=== PATIENT | female | born 1970 | race Caucasian/White ===

== ENCOUNTER 2017-03-24 10:41 | Inpatient (IN) | payer OTHER ==
[~2017-03-24 10:41] MED LIST: ALPRAZolam 0.25 MG TAB PO PRN; ALPRAZolam 0.5 MG TAB PO PRN; ASPIRIN 325 MG TAB PO STA; ATORVASTATIN 80 MG TAB PO STA; NITROGLYCERIN SL TABS 0.4 MG TAB SUBLINGUAL PRN; SODIUM CHLORIDE 0.9% 1,000 ML in EMPTY BAG 1 BAG IV ONE
[2017-03-24] MEDS ORDERED: ASPIRIN 81 MG CHEW ONE (10:57)
[2017-03-24 11:17] LABS: Basophils % (A) 1 %; CH 30.4; CHCM 33.9; Eosinophils # (A) 0.2 k/uL (0-0.7); Eosinophils % (A) 3 %; HCT 42.5 % (34.0-46.0); HDW 2.55; HGB 14.5 gm/dL (11.4-16.0); Luc # (Auto) 0.12; Luc % (Auto) 2; Lymphocytes # (A) 2.5 k/uL (1.0-4.8); Lymphocytes % (A) 37 %; MCH 30.7 pg (25.0-35.0); MCHC 34.1 g/dL (31.0-37.0); MCV 90.1 fL (80.0-100.0); Mean Platelet Volume 7.4; Monocytes # (A) 0.4 k/uL (0-1.0); Monocytes % (A) 6 %; Neutrophils # (A) 3.5 k/uL (1.3-7.7); Neutrophils % (A) 52 %; RBC 4.72 m/uL (3.80-5.40); RDW 13.2 % (11.5-15.5); WBC 6.7 k/uL (3.8-10.6); WBC (Perox) 6.78
[2017-03-24 11:26] LABS: Anion Gap 8 mmol/L; Blood Urea Nitrogen 18 mg/dL (7-17); Calcium 9.9 mg/dL (8.4-10.2); Carbon Dioxide 22 mmol/L (22-30); Chloride 112 mmol/L (98-107); Glucose 87 mg/dL (74-99); Non-African American GFR(MDRD) >60 (>60 ml/min/1.73 sqM); Sodium 142 mmol/L (137-145)
[2017-03-24 11:30] LABS: Potassium 4.4 mmol/L (3.5-5.1)
[2017-03-24] MEDS ORDERED: LIDOCAINE 2% INJ 20 MG/ML (20 ML MDV) ONE (13:09)
[2017-03-24] MEDS ORDERED: NITROGLYCERIN OINT 1 INCH/GM PACKET TOPICAL ONE ×2 (13:15→13:18)
[2017-03-24] MEDS ORDERED: fentaNYL (PF) 50 MCG/ML 2 ML AMP IV ONE (13:20)
[2017-03-24] MEDS ORDERED: MIDAZOLAM 2 MG/2 ML VIAL IV ONE (13:20)
[2017-03-24] MEDS ORDERED: diphenhydrAMINE 50 MG/ML 1 ML VIAL IVP ONE (13:20)
[2017-03-24] MEDS ORDERED: fentaNYL (PF) 50 MCG/ML 2 ML AMP ONE (13:22)
[2017-03-24] MEDS ORDERED: MIDAZOLAM 2 MG/2 ML VIAL ONE (13:23)
[2017-03-24] MEDS ORDERED: hydrALAZINE HCL 20 MG/ML 1 ML VIAL ONE (13:23)
[2017-03-24] MEDS ORDERED: diphenhydrAMINE 50 MG/ML 1 ML VIAL ONE (13:23)
[2017-03-24] MEDS ORDERED: hydrALAZINE HCL 20 MG/ML 1 ML VIAL IV ONE (13:25)
[2017-03-24] MEDS ORDERED: LIDOCAINE 2% INJ 20 MG/ML SQ ONE (13:30)
[2017-03-24] MEDS ORDERED: LABETALOL 5 MG/ML VIAL MDV IV ONE (13:33)
[2017-03-24] MEDS ORDERED: NITROGLYCERIN 1000MCG/10ML SYRINGE INTRAARTER ONE (13:37)
[2017-03-24] MEDS ORDERED: NITROGLYCERIN SL TABS 0.4 MG TAB SUBLINGUAL ONE (13:39)
[2017-03-24] MEDS ORDERED: IOHEXOL 350 MG/ML 125ML BOTTLE INJ ONE (14:01)
[2017-03-24] MEDS ORDERED: ONDANSETRON 4 MG/2 ML VIAL ONE (14:05)
[2017-03-24] MEDS ORDERED: ONDANSETRON 4 MG/2 ML VIAL IVP ONE (14:10)
[2017-03-24] MEDS ORDERED: RX INFO: IV CONTRAST WAS GIVEN 1 EACH MISC MISCELLANE PRN (14:59)
[2017-03-24 17:29] LABS: INR 1.2 (<1.1); Partial Thromboplastin Time 24.6 sec (22.0-30.0); Prothrombin Time 12.1 sec (9.0-12.0)
[2017-03-24 17:42] LABS: ALT 54 U/L (9-52); AST 32 U/L (14-36); Alkaline Phosphatase 70 U/L (38-126); Anion Gap 7 mmol/L; Blood Urea Nitrogen 15 mg/dL (7-17); Calcium 9.3 mg/dL (8.4-10.2); Carbon Dioxide 24 mmol/L (22-30); Chloride 111 mmol/L (98-107); Cholesterol 106 mg/dL (<200); Glucose 101 mg/dL (74-99); HDL Cholesterol 59 mg/dL (40-60); Magnesium 1.6 mg/dL (1.6-2.3); Non-African American GFR(MDRD) >60 (>60 ml/min/1.73 sqM); Potassium 3.7 mmol/L (3.5-5.1); Sodium 142 mmol/L (137-145); Total Bilirubin 0.6 mg/dL (0.2-1.3); Total Protein 5.9 g/dL (6.3-8.2); Triglycerides 56 mg/dL (<150)
[2017-03-24 18:10] LABS: Hepatitis B Surface Ag Index 0.07
[2017-03-24 18:15] LABS: Hepatitis B Core IgM Index 0.07
[2017-03-24 18:27] LABS: Hepatitis C Virus IgG Index 0.03
[2017-03-24 18:28] LABS: Hepatitis C Virus IgG Ab Negative (Negative)
[2017-03-24] MEDS ORDERED: ACETAMINOPHEN TAB 325 MG TAB PO PRN (20:36)
[2017-03-24] MEDS ORDERED: ATORVASTATIN 40 MG TAB PO SCH (21:00)
[2017-03-24] MEDS: METOPROLOL TARTRATE 50 MG TAB PO SCH (21:24)
[2017-03-24] MEDS: SODIUM CHLORIDE 0.9% 1,000 ML IV SCH (21:24)
[2017-03-24 22:03] LABS: Hemoglobin A1C 5.8 % (4.2-6.1)
--- NOTE | 2017-03-24 22:12 | US ---
EXAMINATION TYPE: US carotid duplex BILAT DATE OF EXAM: 03/24/2017 9:48 PM COMPARISON: NONE CLINICAL HISTORY: Pre op cardiac surgery. Preop open cardiac surgery. EXAM MEASUREMENTS: RIGHT: Peak Systolic Velocity (PSV) cm/sec ----- Right CCA: 42.7 ----- Right ICA: 61.0 ----- Right ECA: 59.2 ICA/CCA ratio: 1.4 RIGHT: End Diastole cm/sec ----- Right CCA: 16.5 ----- Right ICA: 24.3 ----- Right ECA: 8.6 LEFT: Peak Systolic Velocity (PSV) cm/sec ----- Left CCA: 48.4 ----- Left ICA: 63.0 ----- Left ECA: 65.8 ICA/CCA ratio: 1.3 LEFT: End Diastole cm/sec ----- Left CCA: 14.5 ----- Left ICA: 27.1 ----- Left ECA: 8.7 VERTEBRALS (direction of flow): Right Vertebral: Antegrade Left Vertebral: Antegrade Mild amount of plaque visualized in bilateral bulbs, no elevated velocities Velocity measurements and ratios remain within normal limits in the visualized portion of bilateral i nternal carotid arteries. IMPRESSION: No hemodynamically significant stenosis is seen in either internal carotid artery.
[2017-03-24] MEDS: MUPIROCIN 2% OINT 22 GM TUBE NASAL SCH (23:29)
[2017-03-25 05:32] LABS: Amorphous Sediment,Urine Rare /hpf; Appearance,Urine Cloudy (Clear); Bilirubin,Urine Negative (Negative); Glucose,Urine (UA) Negative (Negative); Ketones,Urine 1+ (Negative); Leukocyte Esterase,Urine Negative (Negative); Nitrite,Urine Negative (Negative); PH, Urine 6.5 (5.0-8.0); Particle Count 33338; Protein,Urine Negative (Negative); RBC,Urine 1 /hpf (0-5); Squamous Epithelial Cell,Urine 2 /hpf (0-4); UA Billing (MACRO vs. MICRO) MICRO; Urobilinogen,Urine <2.0 mg/dL (<2.0); WBC,Urine 2 /hpf (0-5)
[2017-03-25 06:59] VITALS: TEMP 97.2
[2017-03-25] MEDS: SODIUM CHLORIDE 0.9% 1,000 ML IV SCH (08:00)
[2017-03-25] MEDS: METOPROLOL TARTRATE 50 MG TAB PO SCH (08:05)
--- NOTE | 2017-03-25 08:28 | CC ---
DATE OF SERVICE: Mrs. Reyes is a 47-year-old female who has been having recurrent angina, class III angina with minimal activities and relieved with nitroglycerin. This patient has a history of diffuse coronary artery disease with a prior history of a stent to the LAD, diagonal and circumflex coronary artery. In view of the medically refractory angina, patient was advised further evaluation with a cardiac catheterization for definitive diagnosis. PROCEDURE: The right groin was prepped and draped in the usual manner and the skin was infiltrated with 2% Xylocaine. The right femoral artery was entered using Seldinger technique. A #6 Indonesian sheath was placed in. Selective coronary angiography was then performed in multiple projections and left ventricular pressures were obtained. Patient tolerated the procedure well. HEMODYNAMICS: Left ventricular end-diastolic pressure was 8 to 10 mmHg prior to angiography. No gradient was noted across the aortic valve. SELECTIVE CORONARY ANGIOGRAPHY: Left main coronary artery is normal and patent. LAD is diffusely diseased with the proximally has a 40% stenosis. The mid LAD after the origin of the diagonal branch has a 60% to 70% stenosis and the distal LAD has another area of 70% to 80% stenosis. The diagonal branch is subtotally occluded. Circumflex coronary artery before its bifurcation into the obtuse marginal branch has a hazy-looking 70% to 80% stenosis. Right coronary artery is totally occluded. There is filling of the distal PDA branch from the left coronary system, which is a good caliber blood vessel. FINAL IMPRESSION: This study reveals a diffuse triple-vessel disease with multiple lesions in the left anterior descending artery. There is a tight lesion in the circumflex and the right coronary artery is totally occluded. The PDA branch is bypassable. RECOMMENDATIONS: Films were reviewed with Dr. Thalia Kiser. In view of the diffuse coronary artery disease, we will recommend to have further evaluation for coronary artery bypass surgery.
[2017-03-25] MEDS ORDERED: ASPIRIN 81 MG CHEW PO SCH (09:00)
[2017-03-25] MEDS ORDERED: amLODIPine 5 MG TAB PO SCH (09:00)
[2017-03-25] MEDS ORDERED: LISINOPRIL 10 MG TAB PO SCH (09:00)
[2017-03-25 09:13] VITALS: RESP 18
[2017-03-25] MEDS: MUPIROCIN 2% OINT 22 GM TUBE NASAL SCH (10:03)
--- NOTE | 2017-03-25 10:07 | XR ---
EXAMINATION TYPE: XR chest 2V DATE OF EXAM: 03/25/2017 9:38 AM COMPARISON: NONE TECHNIQUE: PA and lateral views submitted. HISTORY: Preop FINDINGS: The lungs are clear and there is no pneumothorax, pleural effusion, or focal pneumonia. Large nodul e overlying the right midlung likely related to nipple shadow. No overt failure. Scoliotic curvature of the spine noted. Previous surgery in the upper abdomen. IMPRESSION: 1. No acute process. Nodule overlying the right midlung likely related to nipple shadow.
[2017-03-25 11:15] VITALS: PULSE 63
[2017-03-25 11:57] VITALS: BP 159/94
--- NOTE | 2017-03-25 12:29 | P.GSCN ---
History of Present Illness Consult date: 03/25/17 Reason for Consult: Coronary artery disease Requesting physician: Marlen Tripp History of present illness: The patient is a 47-year-old female with a history of coronary artery disease status post multiple stents in the past who presented to her chief radiation therapist with recurrent chest pain at rest. Cardiac catheterization was performed which revealed multivessel coronary disease. I was asked to evaluate her for possible surgical bypass. At the time my examination the patient was resting comfortably in bed denying chest pain or shortness of breath. Review of Systems - Constitutional Reports fatigue - Cardiovascular Reports chest pain, Reports decreased exercise tolerance Past Medical History Past Medical History: Coronary Artery Disease (CAD), Hyperlipidemia, Hypertension History of Any Multi-Drug Resistant Organisms: None Reported Past Surgical History: Section, Cholecystectomy, Heart Catheterization With Stent, Hysterectomy, Tonsillectomy Additional Past Surgical History / Comment(s): 3 heart stents in 2011. Past Anesthesia/Blood Transfusion Reactions: No Reported Reaction Date of Last Stent Placement:: 2011 Past Psychological History: No Psychological Hx Reported Smoking Status: Current every day smoker Past Alcohol Use History: None Reported Additional Past Alcohol Use History / Comment(s): Smokes approx 1 PPD- statred at age [age] years old. Past Drug Use History: None Reported - Past Family History Mother Family Medical History: No Reported History Medications and Allergies Home Medications Medication Instructions Recorded Confirmed Type Aspirin 81 mg PO DAILY 03/21/17 03/24/17 History Atorvastatin [Lipitor] 40 mg PO HS 03/21/17 03/24/17 History Clopidogrel Bisulfate [Plavix] 75 mg PO DAILY 03/21/17 03/24/17 History Lisinopril [Zestril] 10 mg PO DAILY 03/21/17 03/24/17 History Metoprolol Tartrate [Lopressor] 50 mg PO BID 03/21/17 03/24/17 History Nitroglycerin Sl Tabs [Nitrostat] 0.4 mg SUBLINGUAL Q5M PRN 03/21/17 03/24/17 History Allergies Allergy/AdvReac Type Severity Reaction Status Date / Time codeine Allergy Nausea & Verified 03/24/17 16:20 Vomiting Surgical - Exam Vital Signs Temp Pulse Resp BP Pulse Ox 98.0 F 58 L 18 162/94 98 03/24/17 11:10 03/24/17 11:10 03/24/17 11:10 03/24/17 11:10 03/24/17 11:10 - General no distress - Eyes normal ocular movement - Neck no masses, no bruits - Respiratory normal respiratory effort, clear to auscultation - Cardiovascular Rhythm: regular - Abdomen Abdomen: soft, non tender - Integumentary no rash - Psychiatric oriented to time, oriented to person, oriented to place, speech is normal Results - Labs 03/24/17 11:02 03/24/17 16:59 Abnormal Lab Results - Last 24 Hours (Table) 03/24/17 03/24/17 03/25/17 Range/Units 16:59 16:59 04:15 PT 12.1 H (9.0-12.0) sec Chloride 111 H (98-107) mmol/L Glucose 101 H (74-99) mg/dL ALT 54 H (9-52) U/L Total Protein 5.9 L (6.3-8.2) g/dL Albumin 3.4 L (3.5-5.0) g/dL Urine Appearance Cloudy H (Clear) Urine Ketones 1+ H (Negative) Amorphous Sediment Rare H (None) /hpf Diabetes panel 03/24/17 03/24/17 Range/Units 16:59 16:59 Sodium 142 (137-145) mmol/L Potassium 3.7 (3.5-5.1) mmol/L Chloride 111 H (98-107) mmol/L Carbon Dioxide 24 (22-30) mmol/L BUN 15 (7-17) mg/dL Creatinine 0.73 (0.52-1.04) mg/dL Glucose 101 H (74-99) mg/dL Hemoglobin A1c 5.8 (4.2-6.1) % Calcium 9.3 (8.4-10.2) mg/dL AST 32 (14-36) U/L ALT 54 H (9-52) U/L Alkaline Phosphatase 70 (38-126) U/L Total Protein 5.9 L (6.3-8.2) g/dL Albumin 3.4 L (3.5-5.0) g/dL Triglycerides 56 (<150) mg/dL HDL Cholesterol 59 (40-60) mg/dL Thyroid panel 03/24/17 Range/Units 16:59 TSH 1.430 (0.465-4.680) mIU/L Calcium panel 03/24/17 Range/Units 16:59 Calcium 9.3 (8.4-10.2) mg/dL Albumin 3.4 L (3.5-5.0) g/dL Pituitary panel 03/24/17 Range/Units 16:59 Sodium 142 (137-145) mmol/L Potassium 3.7 (3.5-5.1) mmol/L Chloride 111 H (98-107) mmol/L Carbon Dioxide 24 (22-30) mmol/L BUN 15 (7-17) mg/dL Creatinine 0.73 (0.52-1.04) mg/dL Glucose 101 H (74-99) mg/dL Calcium 9.3 (8.4-10.2) mg/dL TSH 1.430 (0.465-4.680) mIU/L Adrenal panel 03/24/17 Range/Units 16:59 Sodium 142 (137-145) mmol/L Potassium 3.7 (3.5-5.1) mmol/L Chloride 111 H (98-107) mmol/L Carbon Dioxide 24 (22-30) mmol/L BUN 15 (7-17) mg/dL Creatinine 0.73 (0.52-1.04) mg/dL Glucose 101 H (74-99) mg/dL Calcium 9.3 (8.4-10.2) mg/dL Total Bilirubin 0.6 (0.2-1.3) mg/dL AST 32 (14-36) U/L ALT 54 H (9-52) U/L Alkaline Phosphatase 70 (38-126) U/L Total Protein 5.9 L (6.3-8.2) g/dL Albumin 3.4 L (3.5-5.0) g/dL - Imaging Chest x-ray: report reviewed, image reviewed Assessment and Plan (1) Coronary artery disease Status: Acute Plan: The patient's cardiac catheterization was personally reviewed. She has multiple areas of disease within her left anterior descending artery along with previously placed stents. She also has disease in the circumflex artery and a totally occluded right coronary artery. Her vessels are small but probably bypassable. The risks, benefits, and alternatives to coronary artery bypass surgery were discussed with the patient and her mother. All their questions were answered. She did receive Plavix today. We will therefore have her hold this medication and schedule her surgery for next week. Her preoperative workup is currently underway. Time with Patient: Greater than 30
[2017-03-25] MEDS ORDERED: amLODIPine 5 MG TAB PO STA (12:41)
[2017-03-25] MEDS ORDERED: amLODIPine 10 MG TAB PO SCH (13:00)
[2017-03-25 14:05] VITALS: BMI 15.9
--- NOTE | 2017-03-25 16:10 | P.PN ---
Subjective Principal diagnosis: Chest pain Discharge note This is a 47-year-old female who has been having recurrent angina, class III angina with minimal activities and relieved with nitroglycerin. She has a known history of diffuse coronary artery disease with prior history of stent to the LAD, diagonal, and circumflex artery. In view of the medically refractory angina patient was advised to be admitted to the hospital to undergo cardiac catheterization. Cardiac catheterization reveals triple vessel coronary artery disease with multiple lesions in the LAD, there is a tight lesion in the circumflex and right coronary artery is totally occluded. The PDA branch is bypassable. The sounds were reviewed with Dr. PAGAN, in view of the diffuse coronary artery disease a recommendation to undergo coronary artery bypass grafting surgery was made. Patient was seen in consultation by Dr. Morales , decision was made for the patient to be discharged home and returned for coronary artery bypass grafting surgery on Friday. Patient had been taking Plavix at home, which is currently on hold. Pressure this morning 155/94, Norvasc 10 mg daily was added to the patient's medication regime. No laboratory data today. The patient has been up ambulating in the villareal without any difficulty. Objective - Vital Signs Vital signs: Vital Signs Temp 97.2 F L 03/25/17 04:00 Pulse 63 03/25/17 11:13 Resp 18 03/25/17 11:13 BP 159/94 03/25/17 11:56 Pulse Ox 96 03/25/17 11:13 Intake & Output 03/24/17 03/25/17 03/25/17 18:59 06:59 18:59 Intake Total 400 375 840 Output Total 1400 Balance 400 -1025 840 Weight 43.998 kg 42.1 kg 42.1 kg Intake: IV 400 Intake, IV Titration 375 600 Amount Sodium Chloride 0.9% 1, 375 600 000 ml @ 75 mls/hr IV . [id number] [facility] Rx#:[id number] Oral 0 240 Output: Urine 1400 Other: # Voids 1 # Bowel Movements 1 0 - Exam Physical examination Patient is awake, alert and oriented 3, up ambulating in the hallway. Lungs are clear to auscultation and percussion, heart S1-S2 normal no murmurs or gallops are heard, abdomen is soft. Right groin is soft there is no evidence of any hematoma. 2+ peripheral pulses with no evidence of any peripheral edema. - Labs CBC & Chem 7: 03/24/17 11:02 03/24/17 16:59 Labs: Abnormal Lab Results - Last 24 Hours (Table) 03/24/17 03/24/17 03/25/17 Range/Units 16:59 16:59 04:15 PT 12.1 H (9.0-12.0) sec Chloride 111 H (98-107) mmol/L Glucose 101 H (74-99) mg/dL ALT 54 H (9-52) U/L Total Protein 5.9 L (6.3-8.2) g/dL Albumin 3.4 L (3.5-5.0) g/dL Urine Appearance Cloudy H (Clear) Urine Ketones 1+ H (Negative) Amorphous Sediment Rare H (None) /hpf Microbiology - Last 24 Hours (Table) 03/24/17 23:00 Nasal Screen MRSA/MSSA (KATIE) - Preliminary Nasal Swab 03/25/17 04:15 Urine Culture - Preliminary Urine,Clean Catch Assessment and Plan Plan: Assessment and plan #1 status post cardiac catheterization which revealed is triple-vessel coronary artery disease, cardiothoracic surgery consulted, plans for coronary artery bypass grafting surgery on Friday. #2 known history of coronary artery disease with prior stent placements #3 HTN #4 hyperlipidemia #5 nicotine dependence Plan Patient will be discharged home today. She will return to the hospital for coronary artery bypass grafting surgery on Friday. We will continue to hold her Plavix, she will be discharged home on Norvasc 10 mg daily, aspirin 81 mg daily, Lipitor 40 mg daily, Zestril 10 mg daily, Lopressor 50 mg one tablet by mouth twice a day, and sublingual nitroglycerin as needed for chest pain.
[2017-03-26] MEDS ORDERED: amLODIPine 10 MG TAB PO SCH (09:00)
--- NOTE | 2017-04-02 12:01 | P.VSCSTY ---
Greater Saphenous Vein Mapping This is bilateral lower extremity greater saphenous vein mapping. Date of service 03/25/2017 Vein quality and ultrasound appearance normal appearance. Small distally especially on the right. Vein size groin right 5.7 x 5.7 groin left 5.5 x 4.2 High thigh right 5.2 x 5.0 high thigh left 5.6 x 4.4 Mid thigh right 3.1 x 3.2 mid thigh left 4.7 x 4.1 Above-knee right 2.8 x 2.7 above- knee left 3.3 x 2.5 Below knee right 1.9 x 1.5 below-knee left 2.6 x 2.9 Mid calf right 1.6 x 1.5 mid calf left 1.8 x 1.6 Ankle right 1.3 x 1.1 ankle left 2.2 x 1.5 Impression usable greater saphenous vein bilaterally at the knee and above. Distal left leg and everything below the knee on the right is probably too small for use as conduit..
--- NOTE | 2017-04-02 12:02 | P.ARTDOP ---
Arterial Doppler LOWER EXTREMITY ARTERIAL DOPPLER: DATE OF SERVICE: 03/25/2017 Reason for study: Pre-open heart surgery. Doppler waveforms: Multiphasic bilaterally throughout. Pulse volume recording: []. Pressure gradients: None. Ankle-brachial indices: Greater than 1 bilaterally. Toe pressures: [] on the right, [] on the left Impression: Normal limited study.
== END 2017-03-25 15:00 | disposition home or self-care (01) | DRG 287 ==
LOC: CATHCVL 10:41 → 6SEL 13:56 → CATHCVL 15:24 → 6SEL 03-25 00:40
PROVIDERS: ADMIT Internal Medicine Cardiovascular Disease; ATTEND Internal Medicine Cardiovascular Disease
PROC: B2111ZZ Fluoroscopy of Multiple Coronary Arteries using Low Osmolar Contrast (ICD-10-PCS; principal; 2017-03-24 12:00)
DX: I25.119 Atherosclerotic heart disease of native coronary artery with unspecified angina pectoris (principal); I25.82 Chronic total occlusion of coronary artery; I10 Essential (primary) hypertension; E78.2 Mixed hyperlipidemia; F17.200 Nicotine dependence, unspecified, uncomplicated; Z95.5 Presence of coronary angioplasty implant and graft; Z79.82 Long term (current) use of aspirin; Z79.02 Long term (current) use of antithrombotics/antiplatelets; Z79.899 Other long term (current) drug therapy
CPT/HCPCS: 71020; 80048; 80053; 80061; 80074; 81001; 83036; 83735; 83880; 84443; 85025; 85610; 85730; 86850; 86900; 86901; 87070; 87077; 87086; 87186; 93458; 93880; 93923; 93970

== ENCOUNTER 2017-04-02 05:45 | Inpatient (IN) | payer OTHER ==
[~2017-04-02 05:45] MED LIST changes: +ALBUMIN HUMAN 25% 50 ML IV ONE; +ALBUMIN HUMAN 5% 500 ML IVPB ONE; -ALPRAZolam 0.25 MG TAB PO PRN; -ALPRAZolam 0.5 MG TAB PO PRN; +AMINOCAPROIC ACID 250 MG/ML 20 ML VIAL IV ONE; +AMINOCAPROIC ACID 5,000 MG in DEXTROSE 5% IN WATER 50 ML IV ONE; -ASPIRIN 325 MG TAB PO STA; +ASPIRIN 81 MG CHEW PO ONE; +ATORVASTATIN 10 MG TAB PO ONE; -ATORVASTATIN 80 MG TAB PO STA; +CALCIUM CHLORIDE 100 MG/ML 10 ML SYRINGE IV ONE; +CHLORHEXIDINE GLUCONATE 15 ML CUP MUCOUS MEM ONE; +CLEVIDIPINE BUTYRATE 25 MG in EMPTY BAG 1 BAG IV ONE; +DEXTROSE 5% IN WATER 1,000 ML with POTASSIUM CHLORIDE 110 MEQ, MAGNESIUM SULFATE 16 MEQ... IV ONE; +DEXTROSE 5% IN WATER 1,000 ML with POTASSIUM CHLORIDE 25 MEQ, SODIUM CHLORIDE 4MEQ/ML V... IV ONE; +HEPARIN SODIUM 1,000 UNIT/ML VIAL IV ONE; +HEPARIN SODIUM,PORCINE 5,000 UNIT in SODIUM CHLORIDE 0.9% 500 ML IV ONE; +INSULIN REGULAR 100 UNIT in SODIUM CHLORIDE 0.9% 100 ML IV ONE; +LACTATED RINGERS 1,000 ML IV ONE; +MAGNESIUM SULFATE MG 500 MG/ML VIAL IV ONE; +MANNITOL 25% 12.5 GM/50 ML VIAL IV ONE; +METOPROLOL TARTRATE 25 MG TAB PO ONE; +NITROGLYCERIN SL TABS 0.4 MG TAB SUBLINGUAL ONE; -NITROGLYCERIN SL TABS 0.4 MG TAB SUBLINGUAL PRN; +NITROGLYCERIN-D5W PMX 25 MG/250 ML BTL IV ONE; +NITROGLYCERIN-D5W PMX 50 MG in DEXTROSE/WATER 1 250ML.BAG IV ONE; +NOREPINEPHRIN 4 MG-0.9% NS PMX 4 MG/250 ML ML IV ONE; +PAPAVERINE 360 MG in SODIUM CHLORIDE 0.9% 90 ML IV ONE; +PHENYLEPHRINE 40 MG in SODIUM CHLORIDE 0.9% 250 ML IV ONE; +PHENYLEPHRINE-0.9% NACL SYG 1 MG/10 ML SYRINGE IV ONE; +PROPOFOL 50 ML IV ONE; +PROTAMINE SULFATE 10 MG/ML 25 ML VIAL IV ONE; +PROTAMINE SULFATE 250 MG in EMPTY BAG 1 BAG IV ONE; +SODIUM BICARB 8.4% 50 ML SYR (1 MEQ/ML) IV ONE; +SODIUM CHLORIDE 0.9% 1,000 ML IV ONE; -SODIUM CHLORIDE 0.9% 1,000 ML in EMPTY BAG 1 BAG IV ONE; +ceFAZolin 1,000 MG in SODIUM CHLORIDE 0.9% IRRIGATIO 1,000 ML IRRIGATION ONE; +ceFAZolin 2,000 MG in SODIUM CHLORIDE 0.9% 30 ML IVPB ONE
[2017-04-02] MEDS ORDERED: LIDOCAINE 1% 20 ML VIAL (10MG/ML) FOR IV START INTRADERMA ONE (06:17)
[2017-04-02] MEDS ORDERED: LIDOCAINE 2% SYG (PF) 100 MG/5 ML ONE (08:08)
[2017-04-02] MEDS ORDERED: PROPOFOL 10 MG/ML 20 ML VIAL IV ONE (08:08)
[2017-04-02] MEDS ORDERED: fentaNYL (PF) 50 MCG/ML 2 ML AMP ONE (08:08)
[2017-04-02] MEDS ORDERED: SODIUM CHLORIDE 0.9% IRRIG 1,000 ML BTL IRRIGATION ONE (08:08)
[2017-04-02] MEDS ORDERED: PROTAMINE SULFATE 10 MG/ML 25 ML VIAL IV ONE (08:08)
[2017-04-02] MEDS ORDERED: ELECTROLYTE-R (PH 7.4) 1,000 ML IV.SOLN IV ONE (08:08)
[2017-04-02] MEDS ORDERED: ALBUMIN HUMAN 5% 500 ML VIAL IVPB ONE (08:08)
[2017-04-02] MEDS ORDERED: VECURONIUM 10 MG VIAL IV ONE (08:08)
[2017-04-02] MEDS ORDERED: ePHEDrine 50 MG/ML 1 ML AMP ONE (08:08)
[2017-04-02] MEDS ORDERED: MIDAZOLAM 2 MG/2 ML VIAL ONE (08:08)
[2017-04-02] MEDS ORDERED: PHENYLEPHRINE-0.9% NACL SYG 1 MG/10 ML SYRINGE ONE (08:08)
[2017-04-02] MEDS ORDERED: fentaNYL (PF) 50 MCG/ML 50 ML VIAL ONE (08:08)
[2017-04-02] MEDS ORDERED: MAGNESIUM SULFATE 4 MEQ/ML 2 ML VIAL ONE (08:08)
[2017-04-02] MEDS ORDERED: HEPARIN SODIUM,PORCINE 10,000 UNIT/ML 1 ML VIAL ONE (08:08)
[2017-04-02 08:58] LABS: Glucose,Whole Blood 117 mg/dL (75-99)
[2017-04-02 10:32] LABS: Glucose,Whole Blood 121 mg/dL (75-99)
[2017-04-02 11:29] LABS: Glucose,Whole Blood 248 mg/dL (75-99)
[2017-04-02 12:30] LABS: Glucose,Whole Blood 238 mg/dL (75-99)
[2017-04-02 13:12] LABS: Glucose,Whole Blood 226 mg/dL (75-99)
[2017-04-02] MEDS ORDERED: Potassium Replacement Protocol 1 EACH MISC MISCELLANE PRN ×2 (13:44→19:30)
[2017-04-02] MEDS ORDERED: BENZOCAINE/MENTHOL LOZENG 1 EACH LOZENGE MUCOUS MEM PRN (13:44)
[2017-04-02] MEDS ORDERED: Phosphorus Replacement Protoco 1 EACH MISC MISCELLANE PRN (13:44)
[2017-04-02] MEDS ORDERED: Magnesium Replacement Protocol 1 EACH MISC MISCELLANE PRN (13:44)
[2017-04-02] MEDS ORDERED: CALCIUM GLUCONATE 2,000 MG in SODIUM CHLORIDE 0.9% 100 ML IVPB PRN (13:44)
[2017-04-02] MEDS ORDERED: NITROGLYCERIN-D5W PMX 50 MG in DEXTROSE/WATER 1 250ML.BAG IV SCH (13:45)
[2017-04-02 14:00] LABS: Glucose,Whole Blood 115 mg/dL (75-99)
[2017-04-02] MEDS ORDERED: INSULIN REGULAR 100 UNIT in SODIUM CHLORIDE 0.9% 100 ML IV SCH (14:00)
[2017-04-02] MEDS ORDERED: fentaNYL (PF) 2,500 MCG in SODIUM CHLORIDE 0.9% 200 ML IV SCH (14:45)
[2017-04-02] MEDS: LACTATED RINGERS 1,000 ML IV SCH (15:00)
[2017-04-02 15:31] LABS: Basophils % (A) 0 %; CH 30.1; CHCM 32.2; Eosinophils # (A) 0.1 k/uL (0-0.7); Eosinophils % (A) 1 %; HCT 22.8 % (34.0-46.0); Luc # (Auto) 0.02; Luc % (Auto) 0; Lymphocytes % (A) 16 %; MCH 30.1 pg (25.0-35.0); MCHC 32.1 g/dL (31.0-37.0); MCV 93.9 fL (80.0-100.0); Mean Platelet Volume 8.2; Monocytes # (A) 0.1 k/uL (0-1.0); Monocytes % (A) 2 %; Neutrophils % (A) 81 %; RBC 2.42 m/uL (3.80-5.40); RDW 13.6 % (11.5-15.5); WBC 6.2 k/uL (3.8-10.6); WBC (Perox) 5.88
[2017-04-02 15:36] LABS: HGB 7.3 gm/dL (11.4-16.0)
[2017-04-02 15:42] LABS: INR 1.5 (<1.1); Prothrombin Time 14.7 sec (9.0-12.0)
[2017-04-02 15:43] LABS: Ionized Calcium 4.6 mg/dL (4.5-5.3)
[2017-04-02 15:43] LABS: Glucose,Whole Blood 97 mg/dL (75-99)
[2017-04-02] MEDS: CLEVIDIPINE BUTYRATE 25 MG in EMPTY BAG 1 BAG IV SCH (15:45)
--- NOTE | 2017-04-02 15:46 | XR ---
EXAMINATION TYPE: XR chest 1V portable DATE OF EXAM: 04/02/2017 3:34 PM COMPARISON: Prior chest x-ray dated 25 March 2017 HISTORY: Postop cardiac surgery TECHNIQUE: Single frontal view of the chest is obtained. FINDINGS: Patient is post median sternotomy. Median sternal drains, right jugular central venous cat heter, endotracheal tube, left chest tube, NG tube are overlying appropriate positions. There are epi cardial pacing leads present. Surgical clips present in the right upper quadrant. No sizable pneumoth orax or pleural effusion. Patchy basilar density present in the retrocardiac region. Cardiac mediasti nal silhouette, pulmonary vascularity and sukumar show a similar appearance accounting for rotation and differences in technique. IMPRESSION: Left lower lobe atelectasis, satisfactory postop chest x-ray
[2017-04-02 15:49] LABS: Glucose,Whole Blood 104 mg/dL (75-99)
[2017-04-02 15:52] LABS: ALT 42 U/L (9-52); AST 41 U/L (14-36); Alkaline Phosphatase 39 U/L (38-126); Anion Gap 7 mmol/L; Blood Urea Nitrogen 16 mg/dL (7-17); Calcium 7.2 mg/dL (8.4-10.2); Carbon Dioxide 24 mmol/L (22-30); Chloride 108 mmol/L (98-107); Glucose 88 mg/dL (74-99); Magnesium 2.7 mg/dL (1.6-2.3); Non-African American GFR(MDRD) >60 (>60 ml/min/1.73 sqM); Potassium 3.8 mmol/L (3.5-5.1); Sodium 139 mmol/L (137-145); Total Bilirubin 0.5 mg/dL (0.2-1.3); Total Protein 4.3 g/dL (6.3-8.2)
[2017-04-02] MEDS: IPRATROPIUM-ALBUTEROL 3 ML NEB INHALATION SCH ×3 (16:03→23:20)
[2017-04-02] MEDS: PROPOFOL 500 MG in EMPTY BAG 1 BAG IV SCH ×3 (16:22→22:25)
[2017-04-02] MEDS: ceFAZolin 2 GM in SODIUM CHLORIDE 0.9% 100 ML IVPB SCH (16:49)
[2017-04-02] MEDS: ESMOLOL IN SODIUM CHLORIDE PMX 2.5 GM in SALINE 1 250ML.BAG IV SCH ×3 (16:53→18:44)
--- NOTE | 2017-04-02 17:11 | P.CNPUL ---
History of Present Illness Consult date: 04/02/17 Requesting physician: Rik Morales Reason for consult: other (Ventilator/critical care management) Chief complaint: Coronary artery disease History of present illness: This is a 47-year-old female patient who follows with Dr. VC Tripp as her hand inspector. She has a history of coronary artery disease with previous stent placement to the LAD diagonal and circumflex coronary arteries back in 2011. She had been having recurrent class III angina that was relieved with nitroglycerin. She presented here on 03/24/2017 for an elective cardiac catheterization which revealed diffuse triple-vessel disease with multiple lesions in the LAD. There was a tight lesion in the circumflex and the right coronary artery was totally occluded. She was recommended coronary artery bypass grafting. She presented here today for an elective surgery which was performed by Dr. Morales. He performed a LIM to the LAD, saphenous pain graft to the OM and saphenous vein graft to the PDA. She is seen immediately postoperative in the intensive care unit. She is currently sedated on propofol 50 mcg/kg/m. She is on nitroglycerin at 20 mg/m and Cleviprex at 2 mg per hour. His IV is lactated Ringer's at 50 MLS per hour. Her current vent settings are SIMV mode of 12, tidal volume 360, FiO2 of 80% and a PEEP of 5. Blood gases revealed a PaO2 of 175, pCO2 21 and a pH of 7.56. 6 reveal some left lower lobe atelectasis. There is a split mediastinal chest tubes and one left pleural chest tube. Nasogastric tube is in place. No sizable pneumothorax or effusion. Her hemoglobin is 7.3. Review of Systems ROS unobtainable: due to endotracheal tube Past Medical History Past Medical History: Coronary Artery Disease (CAD), Chest Pain / Angina, Hyperlipidemia, Hypertension, Myocardial Infarction ([place]) Last Myocardial Infarction Date:: 2011 History of Any Multi-Drug Resistant Organisms: None Reported Past Surgical History: Section, Cholecystectomy, Heart Catheterization , Heart Catheterization With Stent, Hysterectomy, Tonsillectomy Additional Past Surgical History / Comment(s): 3 heart stents in 2011. Past Anesthesia/Blood Transfusion Reactions: No Reported Reaction Date of Last Stent Placement:: 2011 Past Psychological History: No Psychological Hx Reported Smoking Status: Current every day smoker Past Alcohol Use History: None Reported Additional Past Alcohol Use History / Comment(s): Smokes approx 1 PPD- started at age [age] years old. Past Drug Use History: None Reported - Past Family History Mother Family Medical History: No Reported History Father History Unknown: Yes Medications and Allergies Home Medications Medication Instructions Recorded Confirmed Type Aspirin 81 mg PO DAILY 03/21/17 04/02/17 History Atorvastatin [Lipitor] 40 mg PO HS 03/21/17 04/02/17 History Lisinopril [Zestril] 10 mg PO DAILY 03/21/17 04/02/17 History Metoprolol Tartrate [Lopressor] 50 mg PO BID 03/21/17 04/02/17 History Nitroglycerin Sl Tabs [Nitrostat] 0.4 mg SUBLINGUAL Q5M PRN 03/21/17 04/02/17 History Ciprofloxacin HCl [Cipro] 500 mg PO Q12HR 03/28/17 04/02/17 History Clopidogrel Bisulfate [Clopidogrel] 75 mg PO DAILY 04/01/17 04/02/17 History Allergies Allergy/AdvReac Type Severity Reaction Status Date / Time codeine Allergy Nausea & Verified 04/02/17 13:43 Vomiting Physical Exam Vitals: Vital Signs Temp Pulse Pulse Resp BP BP Pulse Ox 04/02/17 16:03 100 04/02/17 06:07 97.7 F 75 16 160/101 147/101 98 Intake and Output 04/02/17 04/02/17 04/02/17 06:59 14:59 22:59 Intake Total 344 50.167 Output Total 2009 505 Jbouamr -4006 -979.557 Intake: IV 33 Intake, IV Titration 50 50.167 Amount Clevidipine Butyrate 25 0.167 mg In Empty Bag 1 bag @ 1 MG/HR 2 mls/hr IV .Q24H [facility] Rx#:[id number] Lactated Ringers 1,000 ml 50 50 @ 50 mls/hr IV .Q20H [facility] Rx#:[id number] Blood Product 261 Platelet Pheresis Acda2 261 Unit [id number] Output: Chest Tube Drainage 60 155 Chest Tube Bilateral 30 45 Mediastinal Chest Tube Left Lateral 30 110 Chest Urine 1050 350 Estimated Blood Loss 900 GENERAL EXAM: Intubated, sedated.. HEAD: Normocephalic. EYES: Sluggish reaction of pupils, equal size. NOSE: Clear with pink turbinates. THROAT: Endotracheal and gastric tube secured in place. No erythema or exudates. NECK: No masses, no JVD. CHEST: Dressing dry and intact. Splint mediastinal and left pleural chest tubes in place. Pacer wires in place. LUNGS: Equal air entry with crackles in the posterior bases more so on the left. CVS: S1 and S2 normal with no audible murmurs, regular rhythm. ABDOMEN: No hepatosplenomegaly, no active bowel sounds. SPINE: No scoliosis or deformity SKIN: No rashes Extremities: There are bilateral Yury wraps to lower extremities. CAROL drain to the left lower extremity. Peripheral pulses are intact. Results - Laboratory Findings CBC and BMP: 04/02/17 13:44 04/02/17 15:20 PT/INR, D-dimer PT 14.7 sec (9.0-12.0) H 04/02/17 15:20 INR 1.5 (<1.1) 04/02/17 15:20 Abnormal lab findings: Abnormal Labs 03/24/17 04/02/17 04/02/17 17:08 08:54 10:17 RBC Hgb Hct Plt Count PT APTT Chloride POC Glucose (mg/dL) 117 H 121 H Calcium Magnesium AST Total Protein Albumin Crossmatch See Detail 04/02/17 04/02/17 04/02/17 11:26 12:16 12:58 RBC Hgb Hct Plt Count PT APTT Chloride POC Glucose (mg/dL) 248 H 238 H 226 H Calcium Magnesium AST Total Protein Albumin Crossmatch 04/02/17 04/02/17 04/02/17 13:44 13:56 15:20 RBC 2.42 L Hgb 7.3 L D Hct 22.8 L Plt Count 106 L D PT 14.7 H APTT 35.0 H Chloride POC Glucose (mg/dL) 115 H Calcium Magnesium AST Total Protein Albumin Crossmatch 04/02/17 04/02/17 15:20 15:48 RBC Hgb Hct Plt Count PT APTT Chloride 108 H POC Glucose (mg/dL) 104 H Calcium 7.2 L Magnesium 2.7 H AST 41 H Total Protein 4.3 L Albumin 2.7 L Crossmatch - Diagnostic Findings Chest x-ray: image reviewed Assessment and Plan Plan: Impression: #1 Severe diffuse triple-vessel coronary artery disease status post coronary artery bypass grafting utilizing a LIM to the LAD, saphenous vein graft to the obtuse marginal branch, saphenous vein graft to the posterior descending artery. Operative day #0. #2 Ventilator-dependent as an expected outcome to thoracotomy. #3 Coronary artery disease with previous stent placements 3 to the LAD, diagonal and circumflex coronary arteries. #4 Hyperlipidemia. #5 Hypertension. #6 Chronic and ongoing tobacco dependence. Plan: The patient was seen and evaluated by Dr. Cherry. Her vent settings, ABGs, chest x-ray and labs were all reviewed. We did go ahead and switch the patient to assist control at a rate of 10 and increase her tidal volume to 400. We'll continue to titrate down the FiO2 will maintaining O2 saturations greater than 92%. We'll continue with bronchodilators every 4 hours. We'll plan for early extubation protocol. Continue to watch her labs closely. We'll repeat a chest x-ray in the a.m. She remains on heparin for DVT prophylaxis and Protonix for GI prophylaxis. We'll continue to follow and make further recommendations based on her clinical status. Critical care time 42 minutes. Time with Patient: Greater than 30
[2017-04-02 17:17] LABS: Glucose,Whole Blood 143 mg/dL (75-99)
[2017-04-02 17:44] LABS: ABG Base Excess -3.5 mmol/L; ABG HCO3 19 mmol/L (21-25); ABG PCO2 21 mmHg (35-45); ABG PH 7.56 (7.35-7.45); ABG PO2 175 mmHg (83-108); ABG TCO2 19 mmol/L (19-24)
[2017-04-02] MEDS: ALBUMIN HUMAN 5% 250 ML in EMPTY BAG 1 BAG IVPB PRN ×3 (18:25→21:05)
[2017-04-02 18:26] LABS: Basophils % (A) 0 %; CHCM 31.8; Eosinophils # (A) 0.1 k/uL (0-0.7); Eosinophils % (A) 0 %; HCT 25.4 % (34.0-46.0); HDW 2.38; HGB 8.1 gm/dL (11.4-16.0); Luc # (Auto) 0.07; Luc % (Auto) 1; Lymphocytes # (A) 1.1 k/uL (1.0-4.8); Lymphocytes % (A) 7 %; MCH 30.4 pg (25.0-35.0); Mean Platelet Volume 7.7; Monocytes # (A) 0.7 k/uL (0-1.0); Monocytes % (A) 4 %; Neutrophils % (A) 87 %; RBC 2.68 m/uL (3.80-5.40); RDW 13.8 % (11.5-15.5); WBC 14.9 k/uL (3.8-10.6); WBC (Perox) 14.91
[2017-04-02 18:32] LABS: Glucose,Whole Blood 141 mg/dL (75-99)
[2017-04-02] MEDS: ACETAMINOPHEN IV (For NPO) 600 MG in EMPTY BAG 1 BAG IVPB SCH (18:34)
[2017-04-02 19:30] LABS: Glucose,Whole Blood 114 mg/dL (75-99)
[2017-04-02 20:15] LABS: Glucose,Whole Blood 113 mg/dL (75-99)
[2017-04-02] MEDS: POTASSIUM CHLORIDE 10 MEQ in WATER FOR INJECTION 1 100ML.BAG IVPB SCH ×2 (20:17→21:00)
[2017-04-02 20:59] LABS: Glucose,Whole Blood 119 mg/dL (75-99)
[2017-04-02] MEDS: MORPHINE SULFATE 2 MG/ML SYRINGE IVP PRN (22:05)
[2017-04-02 22:21] LABS: Glucose,Whole Blood 134 mg/dL (75-99)
[2017-04-02 22:28] LABS: ABG PH 7.69 (7.35-7.45)
[2017-04-02 22:29] LABS: ABG Base Excess -4.1 mmol/L; ABG HCO3 17 mmol/L (21-25); ABG PCO2 <15 mmHg (35-45); ABG PO2 204 mmHg (83-108); ABG TCO2 17 mmol/L (19-24)
[2017-04-02] MEDS: HEPARIN SODIUM,PORCINE 5,000 UNIT/ML 1 ML VIAL SQ SCH (22:35)
[2017-04-02 23:02] LABS: Glucose,Whole Blood 130 mg/dL (75-99)
[2017-04-02 23:30] LABS: ABG PCO2 33 mmHg (35-45); ABG PO2 170 mmHg (83-108)
[2017-04-02 23:31] LABS: ABG Base Excess -4.1 mmol/L; ABG HCO3 20 mmol/L (21-25); ABG TCO2 21 mmol/L (19-24)
[2017-04-03 00:04] LABS: Glucose,Whole Blood 140 mg/dL (75-99)
[2017-04-03 01:22] LABS: Glucose,Whole Blood 129 mg/dL (75-99)
[2017-04-03 02:08] LABS: Glucose,Whole Blood 119 mg/dL (75-99)
[2017-04-03] MEDS: MORPHINE SULFATE 2 MG/ML SYRINGE IVP PRN ×3 (02:30→06:38)
[2017-04-03 03:07] LABS: Glucose,Whole Blood 140 mg/dL (75-99)
[2017-04-03 03:25] LABS: ABG Base Excess -3.6 mmol/L; ABG HCO3 21 mmol/L (21-25); ABG PCO2 34 mmHg (35-45); ABG PO2 113 mmHg (83-108); ABG TCO2 22 mmol/L (19-24)
[2017-04-03] MEDS: ONDANSETRON 4 MG/2 ML VIAL IVP PRN ×3 (04:00→17:18)
[2017-04-03 04:57] LABS: Glucose,Whole Blood 132 mg/dL (75-99)
[2017-04-03 05:22] LABS: Basophils % (A) 0 %; CH 29.8; CHCM 31.2; Eosinophils % (A) 0 %; HCT 24.2 % (34.0-46.0); HDW 2.34; HGB 7.6 gm/dL (11.4-16.0); Luc # (Auto) 0.11; Luc % (Auto) 1; Lymphocytes # (A) 0.9 k/uL (1.0-4.8); Lymphocytes % (A) 8 %; MCH 30.1 pg (25.0-35.0); MCHC 31.4 g/dL (31.0-37.0); MCV 95.8 fL (80.0-100.0); Mean Platelet Volume 8.2; Monocytes # (A) 0.5 k/uL (0-1.0); Monocytes % (A) 5 %; Neutrophils # (A) 9.4 k/uL (1.3-7.7); Neutrophils % (A) 85 %; RBC 2.52 m/uL (3.80-5.40); RDW 13.7 % (11.5-15.5)
[2017-04-03 05:54] LABS: Ionized Calcium 5.2 mg/dL (4.5-5.3)
[2017-04-03 06:13] LABS: ALT 45 U/L (9-52); AST 50 U/L (14-36); Alkaline Phosphatase 43 U/L (38-126); Anion Gap 8 mmol/L; Blood Urea Nitrogen 17 mg/dL (7-17); Calcium 8.7 mg/dL (8.4-10.2); Carbon Dioxide 23 mmol/L (22-30); Chloride 110 mmol/L (98-107); Glucose 128 mg/dL (74-99); Magnesium 2.2 mg/dL (1.6-2.3); Non-African American GFR(MDRD) >60 (>60 ml/min/1.73 sqM); Sodium 141 mmol/L (137-145); Total Bilirubin 0.7 mg/dL (0.2-1.3); Total Protein 5.1 g/dL (6.3-8.2)
[2017-04-03 06:14] LABS: Glucose,Whole Blood 140 mg/dL (75-99)
[2017-04-03] MEDS: ACETAMINOPHEN IV (For NPO) 600 MG in EMPTY BAG 1 BAG IVPB SCH ×4 (06:39→19:43)
[2017-04-03] MEDS ORDERED: METOPROLOL TARTRATE 25 MG TAB PO ONE (07:00)
[2017-04-03 07:06] LABS: Glucose,Whole Blood 146 mg/dL (75-99)
[2017-04-03] MEDS: ESMOLOL IN SODIUM CHLORIDE PMX 2.5 GM in SALINE 1 250ML.BAG IV SCH ×2 (07:12→20:18)
--- NOTE | 2017-04-03 07:31 | OP ---
DATE OF SERVICE: 04/02/2017 SURGEON: Rik Morales MD POTTERY MACHINE OPERATOR: 1. VADIM BRAGA. 2. WALKER FIERRO PREOPERATIVE DIAGNOSIS: Coronary artery disease. POSTOPERATIVE DIAGNOSIS: Coronary artery disease. OPERATION: 1. Coronary artery bypass grafting x 3 vessels (left internal mammary artery to left anterior descending artery, saphenous vein graft to posterior descending artery, saphenous vein graft to obtuse marginal artery). 2. Endoscopic vein harvest right greater saphenous vein. 3. Aortic ultrasound. 4. Transesophageal echocardiogram. ANESTHESIA: General. ESTIMATED BLOOD LOSS: SPECIMENS REMOVED: None. COMPLICATIONS: None. INDICATION: The patient is a 47-year-old female with a history of coronary artery disease status post coronary artery stents the past, hyperlipidemia, hypertension, and current tobacco use who presented to the hospital with chest pain. Cardiac catheterization was performed which revealed multivessel coronary artery disease. A coronary artery bypass was recommended. The risks and benefits, alternatives to this procedure were discussed with the patient. All questions were answered. Consent was obtained. FINDINGS: The left internal mammary artery was a small diameter vessel with brisk flow. Saphenous vein was adequate conduit. The LAD measured 1.5 mm, the PDA measured 1.5 mm, the obtuse marginal artery measured 1.3 mm. PROCEDURE IN DETAIL: The patient was taken to the operating room, placed supine on operating table. After induction of general anesthesia, she was prepped and draped in the usual sterile fashion. A median sternotomy was performed. The left internal mammary artery was harvested from the chest wall in the standard fashion, taking care to clip all branches. Intravenous heparin was administered and the vessel was transected distally revealing brisk flow. The vessel itself was small in diameter but I felt it was adequate for use. Greater saphenous vein was harvested from the right lower extremity simultaneously using endoscopic technique. All branches were clipped and tied. A pericardial cradle was created. The pacing aorta was palpated and appeared to be soft and free of obvious calcified plaque. There were adhesions noted around the aorta, which were taken down sharply. Epiaortic ultrasound was performed. There was no significant plaque or atheromatous disease noted. An arterial cannula was placed in the distal ascending aorta. A venous cannula was placed in the right atrial appendage and directed into the IVC. Both antegrade and retrograde catheters were placed as well. The patient was then placed on cardiopulmonary bypass with good decompression of the heart. The aortic crossclamp was applied. Cold blood potassium cardioplegia was delivered in both antegrade and retrograde fashion to achieve arrest of the heart. Of note, cardioplegia was delivered every 15 to 20 minutes although the patient remained under crossclamp. We began by inspecting the inferior wall. The posterior descending artery was identified. A small arteriotomy was created. This vessel accepted a 1.5 mm probe. Using saphenous vein in a reverse fashion, an end-to-side anastomosis was created. This was performed using running 7-0 Prolene suture. Both the heel and toe were probed prior to tying down the last suture. The graft was hemostatic and had great flow. Next, the lateral wall was inspected. The obtuse marginal artery was heavily diseased. A soft spot for bypass was identified. A small arteriotomy was created. This vessel accepted a 1 mm probe. Using saphenous vein in a reverse fashion, an end-to-side anastomosis was created. This was performed using running 7-0 Prolene suture. Prior to tying down the last suture, both the heel and toe were probed and appeared to be patent. The graft had great flow and the anastomosis was hemostatic. Finally, the left anterior descending artery was identified. The previously placed stent was palpated. Distal to this was a soft spot for bypass. A small arteriotomy was created. This vessel accepted a 1.5 mm probe distally. Using the left internal mammary artery, an end-to-side anastomosis was created. This was performed as running 8-0 Prolene suture. Prior to tying the last suture, the toe was probed and appeared to be patent. The mammary pedicle is intact down to the anterior surface of the heart. Attention was then turned to the proximal anastomoses. These were performed to the ascending aorta in an end-to-side fashion using running 6-0 Prolene sutures. One liter of warm blood was delivered in retrograde fashion. Lidocaine and magnesium were administered as well. The crossclamp was removed. The grafts were de-aired in the standard fashion. The distal anastomoses were inspected and appeared to be hemostatic. The retrograde catheter was removed. Temporary atrial and ventricular pacing wires were placed and brought through the skin. The patient was then weaned off cardiopulmonary bypass. She without difficulty. Followup transesophageal echocardiogram revealed a preserved ejection fraction without significant valvular pathology. Protamine was administered. The remaining cannulas were removed. The mediastinum was then copiously irrigated with warm saline solution. All surgical sites were inspected and appeared to be hemostatic. Reinforcement sutures were placed as needed. Soft tissue was reapproximated over the ascending aorta as well as over the apex of the heart. A straight [address] [place] chest tube was placed and directed into the left pleural space. Two additional straight [address] [place] chest tubes were placed direct into the mediastinum. These were secured to the skin using sutures. The sternum was then reapproximated using mediastinal wires in a [id number] fashion. The remainder of the wound was closed in layers. A sterile dressing was applied. The patient appeared to tolerate the procedure well. There were no immediate complications. She returned to the ICU in critical but stable condition. LARRY
[2017-04-03] MEDS: IPRATROPIUM-ALBUTEROL 3 ML NEB INHALATION SCH ×3 (07:51→19:55)
[2017-04-03] MEDS: METOCLOPRAMIDE 5 MG/ML 2 ML VIAL IVP PRN ×4 (07:57→22:14)
[2017-04-03 08:04] LABS: Glucose,Whole Blood 128 mg/dL (75-99)
[2017-04-03] MEDS: PANTOPRAZOLE 40 MG/10 ML VIAL IVP SCH (08:20)
[2017-04-03] MEDS: ceFAZolin 2 GM in SODIUM CHLORIDE 0.9% 100 ML IVPB SCH ×3 (08:32)
[2017-04-03] MEDS: HEPARIN SODIUM,PORCINE 5,000 UNIT/ML 1 ML VIAL SQ SCH ×2 (08:33→17:20)
--- NOTE | 2017-04-03 08:39 | P.PN ---
Subjective Principal diagnosis: Coronary artery disease. POD #1 coronary artery bypass grafting 3 vessels, left internal mammary artery to left anterior descending artery, saphenous vein graft to posterior descending artery, saphenous vein graft to obtuse marginal artery. Endoscopic vein harvest right greater saphenous vein. Aortic ultrasound. Transesophageal echocardiogram. Patient currently sitting up in bed in no apparent distress. Extubated at 3:15 this morning. Remains on high dose esmolol drip secondary to tachycardia and hypertension overnight. Midnight nurse reports patient gagging to the point of small amount of emesis after extubation. Unsure if she will be able to tolerate oral medication. Objective - Vital Signs Vital signs: Vital Signs Temp 97.5 F L 04/03/17 04:00 Pulse 76 04/03/17 07:00 Resp 18 04/03/17 07:00 BP 147/101 04/02/17 06:07 Pulse Ox 100 04/03/17 07:00 Intake & Output 04/02/17 04/03/17 04/03/17 18:59 06:59 18:59 Intake Total 618.731 851.320 18.023 Output Total 3175 1406 200 Balance -2556.269 -554.680 -181.977 Weight 45 kg Intake: IV 33 239 9 CO/CI 140 0 Pressure Bag 99 9 Intake, IV Titration 324.731 612.320 9.023 Amount Albumin Human 5% 250 ml 250 In Empty Bag 1 bag @ 250 mls/hr IVPB Q1HR PRN Rx#: [id number] Clevidipine Butyrate 25 0.167 mg In Empty Bag 1 bag @ 1 MG/HR 2 mls/hr IV .Q24H [facility] Rx#:[id number] Esmolol in Sodium 250.000 Chloride Pmx 2.5 gm In Saline 1 250ml.bag @ 25 MCG/KG/MIN 6.25 mls/hr IV .Q24H [facility] Rx#:[id number] Insulin Regular 100 unit 1.38 9.023 In Sodium Chloride 0.9% 100 ml @ Per Protocol IV .Q0M [facility] Rx#:[id number] Lactated Ringers 1,000 ml 200 50 @ 50 mls/hr IV .Q20H [facility] Rx#:[id number] Propofol 500 mg In Empty 24.564 60.940 Bag 1 bag @ Titrate IV . Q0M [facility] Rx#:[id number] ceFAZolin 2 gm In Sodium 100 Chloride 0.9% 100 ml @ 100 mls/hr IVPB Q8HR [facility] Rx#:[id number] Blood Product 261 Platelet Pheresis Acda2 261 Unit [id number] Output: Chest Tube Drainage 385 396 0 Chest Tube Bilateral 205 190 0 Mediastinal Chest Tube Left Lateral 180 206 0 Chest Drainage 20 Left Knee 20 Urine 1890 990 200 Estimated Blood Loss 900 ABP, PAP, CO, CI - Last Documented Arterial Blood Pressure 134/79 Pulmonary Artery Pressure 26/15 Cardiac Output 2.9 Cardiac Index 2.1 - Constitutional General appearance: Present: cooperative, no acute distress - Respiratory Details: Lungs sounds diminished bilaterally. Respirations even, nonlabored. Currently on 2 L nasal cannula with oxygen saturation 100%. Only able to achieve 500 mL on incentive spirometry. Effective cough. Chest x-ray reviewed. Mediastinal chest tube to -20 cm wall suction, 110 mL serosanguineous fluid overnight, 350 mL since surgery. Left pleural chest tube to -20 cm wall suction, 105 mL serosanguineous fluid overnight, 280 mL since surgery. No air leaks present. - Cardiovascular Details: S1, S2 present. Regular rate and rhythm, normal sinus rhythm on telemetry. Sternum stable. Epicardial pacemaker wires present, attached to generator, VVI with backup rate 50 bpm. Left radial A-line present. Right IJ Cordis/[place]- Bobby catheter present. Teds/SCDs present. - Gastrointestinal Gastrointestinal Comment(s): Abdomen soft, nontender, nondistended. Hypoactive bowel sounds present. Tolerating clear liquids. - Genitourinary Genitourinary Comment(s): Savage present draining clear, yellow urine. Output 45-75 mL/h overnight, 200 mL /h for the last 2 hours. - Integumentary Integumentary Comment(s): Anterior chest incision covered with dry intact dressing. Right lower extremity EVH site well approximated with CAROL drain. - Musculoskeletal Musculoskeletal: Present: strength equal bilaterally - Psychiatric Psychiatric: Present: A&O x's 3, appropriate affect, intact judgment & insight - Allied health notes Allied health notes reviewed: nursing - Labs CBC & Chem 7: 04/03/17 04:56 04/03/17 04:56 Labs: Abnormal Lab Results - Last 24 Hours (Table) 03/24/17 04/02/1717 Range/Units 17:08 08:54 10:17 WBC (3.8-10.6) k/uL RBC (3.80-5.40) m/uL Hgb (11.4-16.0) gm/dL Hct (34.0-46.0) % Plt Count (150-450) k/uL Neutrophils # (1.3-7.7) k/uL Lymphocytes # (1.0-4.8) k/uL PT (9.0-12.0) sec APTT (22.0-30.0) sec ABG pH (7.35-7.45) ABG pCO2 (35-45) mmHg ABG pO2 (83-108) mmHg ABG HCO3 (21-25) mmol/L ABG Total CO2 (19-24) mmol/L ABG O2 Saturation (94-97) % Chloride (98-107) mmol/L Glucose (74-99) mg/dL POC Glucose (mg/dL) 117 H 121 H (75-99) mg/dL Calcium (8.4-10.2) mg/dL Magnesium (1.6-2.3) mg/dL AST (14-36) U/L Total Protein (6.3-8.2) g/dL Albumin (3.5-5.0) g/dL Crossmatch See Detail 04/02/17 04/02/17 04/02/17 Range/Units 11:26 12:16 12:58 WBC (3.8-10.6) k/uL RBC (3.80-5.40) m/uL Hgb (11.4-16.0) gm/dL Hct (34.0-46.0) % Plt Count (150-450) k/uL Neutrophils # (1.3-7.7) k/uL Lymphocytes # (1.0-4.8) k/uL PT (9.0-12.0) sec APTT (22.0-30.0) sec ABG pH (7.35-7.45) ABG pCO2 (35-45) mmHg ABG pO2 (83-108) mmHg ABG HCO3 (21-25) mmol/L ABG Total CO2 (19-24) mmol/L ABG O2 Saturation (94-97) % Chloride (98-107) mmol/L Glucose (74-99) mg/dL POC Glucose (mg/dL) 248 H 238 H 226 H (75-99) mg/dL Calcium (8.4-10.2) mg/dL Magnesium (1.6-2.3) mg/dL AST (14-36) U/L Total Protein (6.3-8.2) g/dL Albumin (3.5-5.0) g/dL Crossmatch 04/02/17 04/02/17 04/02/17 Range/Units 13:56 15:20 15:20 WBC (3.8-10.6) k/uL RBC 2.42 L (3.80-5.40) m/uL Hgb 7.3 L D (11.4-16.0) gm/dL Hct 22.8 L (34.0-46.0) % Plt Count 106 L D (150-450) k/uL Neutrophils # (1.3-7.7) k/uL Lymphocytes # (1.0-4.8) k/uL PT 14.7 H (9.0-12.0) sec APTT 35.0 H (22.0-30.0) sec ABG pH (7.35-7.45) ABG pCO2 (35-45) mmHg ABG pO2 (83-108) mmHg ABG HCO3 (21-25) mmol/L ABG Total CO2 (19-24) mmol/L ABG O2 Saturation (94-97) % Chloride (98-107) mmol/L Glucose (74-99) mg/dL POC Glucose (mg/dL) 115 H (75-99) mg/dL Calcium (8.4-10.2) mg/dL Magnesium (1.6-2.3) mg/dL AST (14-36) U/L Total Protein (6.3-8.2) g/dL Albumin (3.5-5.0) g/dL Crossmatch 04/02/17 04/02/17 04/02/17 Range/Units 15:20 15:48 15:48 WBC (3.8-10.6) k/uL RBC (3.80-5.40) m/uL Hgb (11.4-16.0) gm/dL Hct (34.0-46.0) % Plt Count (150-450) k/uL Neutrophils # (1.3-7.7) k/uL Lymphocytes # (1.0-4.8) k/uL PT (9.0-12.0) sec APTT (22.0-30.0) sec ABG pH 7.56 H (7.35-7.45) ABG pCO2 21 L (35-45) mmHg ABG pO2 175 H (83-108) mmHg ABG HCO3 19 L (21-25) mmol/L ABG Total CO2 (19-24) mmol/L ABG O2 Saturation 100.0 H (94-97) % Chloride 108 H (98-107) mmol/L Glucose (74-99) mg/dL POC Glucose (mg/dL) 104 H (75-99) mg/dL Calcium 7.2 L (8.4-10.2) mg/dL Magnesium 2.7 H (1.6-2.3) mg/dL AST 41 H (14-36) U/L Total Protein 4.3 L (6.3-8.2) g/dL Albumin 2.7 L (3.5-5.0) g/dL Crossmatch 04/02/17 04/02/17 04/02/17 Range/Units 16:59 18:00 18:14 WBC 14.9 H (3.8-10.6) k/uL RBC 2.68 L (3.80-5.40) m/uL Hgb 8.1 L (11.4-16.0) gm/dL Hct 25.4 L (34.0-46.0) % Plt Count (150-450) k/uL Neutrophils # 13.0 H (1.3-7.7) k/uL Lymphocytes # (1.0-4.8) k/uL PT (9.0-12.0) sec APTT (22.0-30.0) sec ABG pH (7.35-7.45) ABG pCO2 (35-45) mmHg ABG pO2 (83-108) mmHg ABG HCO3 (21-25) mmol/L ABG Total CO2 (19-24) mmol/L ABG O2 Saturation (94-97) % Chloride (98-107) mmol/L Glucose (74-99) mg/dL POC Glucose (mg/dL) 143 H 141 H (75-99) mg/dL Calcium (8.4-10.2) mg/dL Magnesium (1.6-2.3) mg/dL AST (14-36) U/L Total Protein (6.3-8.2) g/dL Albumin (3.5-5.0) g/dL Crossmatch 04/02/17 04/02/17 04/02/17 Range/Units 19:28 20:13 20:58 WBC (3.8-10.6) k/uL RBC (3.80-5.40) m/uL Hgb (11.4-16.0) gm/dL Hct (34.0-46.0) % Plt Count (150-450) k/uL Neutrophils # (1.3-7.7) k/uL Lymphocytes # (1.0-4.8) k/uL PT (9.0-12.0) sec APTT (22.0-30.0) sec ABG pH (7.35-7.45) ABG pCO2 (35-45) mmHg ABG pO2 (83-108) mmHg ABG HCO3 (21-25) mmol/L ABG Total CO2 (19-24) mmol/L ABG O2 Saturation (94-97) % Chloride (98-107) mmol/L Glucose (74-99) mg/dL POC Glucose (mg/dL) 114 H 113 H 119 H (75-99) mg/dL Calcium (8.4-10.2) mg/dL Magnesium (1.6-2.3) mg/dL AST (14-36) U/L Total Protein (6.3-8.2) g/dL Albumin (3.5-5.0) g/dL Crossmatch 04/02/17 04/02/17 04/02/17 Range/Units 21:25 22:20 23:01 WBC (3.8-10.6) k/uL RBC (3.80-5.40) m/uL Hgb (11.4-16.0) gm/dL Hct (34.0-46.0) % Plt Count (150-450) k/uL Neutrophils # (1.3-7.7) k/uL Lymphocytes # (1.0-4.8) k/uL PT (9.0-12.0) sec APTT (22.0-30.0) sec ABG pH 7.69 H* (7.35-7.45) ABG pCO2 <15 L* (35-45) mmHg ABG pO2 204 H (83-108) mmHg ABG HCO3 17 L (21-25) mmol/L ABG Total CO2 17 L (19-24) mmol/L ABG O2 Saturation 100.0 H (94-97) % Chloride (98-107) mmol/L Glucose (74-99) mg/dL POC Glucose (mg/dL) 134 H 130 H (75-99) mg/dL Calcium (8.4-10.2) mg/dL Magnesium (1.6-2.3) mg/dL AST (14-36) U/L Total Protein (6.3-8.2) g/dL Albumin (3.5-5.0) g/dL Crossmatch 04/02/17 04/03/17 04/03/17 Range/Units 23:40 00:02 01:21 WBC (3.8-10.6) k/uL RBC (3.80-5.40) m/uL Hgb (11.4-16.0) gm/dL Hct (34.0-46.0) % Plt Count (150-450) k/uL Neutrophils # (1.3-7.7) k/uL Lymphocytes # (1.0-4.8) k/uL PT (9.0-12.0) sec APTT (22.0-30.0) sec ABG pH (7.35-7.45) ABG pCO2 33 L (35-45) mmHg ABG pO2 170 H (83-108) mmHg ABG HCO3 20 L (21-25) mmol/L ABG Total CO2 (19-24) mmol/L ABG O2 Saturation 100.0 H (94-97) % Chloride (98-107) mmol/L Glucose (74-99) mg/dL POC Glucose (mg/dL) 140 H 129 H (75-99) mg/dL Calcium (8.4-10.2) mg/dL Magnesium (1.6-2.3) mg/dL AST (14-36) U/L Total Protein (6.3-8.2) g/dL Albumin (3.5-5.0) g/dL Crossmatch 04/03/17 04/03/17 04/03/17 Range/Units 02:07 03:05 03:08 WBC (3.8-10.6) k/uL RBC (3.80-5.40) m/uL Hgb (11.4-16.0) gm/dL Hct (34.0-46.0) % Plt Count (150-450) k/uL Neutrophils # (1.3-7.7) k/uL Lymphocytes # (1.0-4.8) k/uL PT (9.0-12.0) sec APTT (22.0-30.0) sec ABG pH (7.35-7.45) ABG pCO2 34 L (35-45) mmHg ABG pO2 113 H (83-108) mmHg ABG HCO3 (21-25) mmol/L ABG Total CO2 (19-24) mmol/L ABG O2 Saturation 99.0 H (94-97) % Chloride (98-107) mmol/L Glucose (74-99) mg/dL POC Glucose (mg/dL) 119 H 140 H (75-99) mg/dL Calcium (8.4-10.2) mg/dL Magnesium (1.6-2.3) mg/dL AST (14-36) U/L Total Protein (6.3-8.2) g/dL Albumin (3.5-5.0) g/dL Crossmatch 04/03/17 04/03/17 04/03/17 Range/Units 04:55 04:56 04:56 WBC 11.0 H (3.8-10.6) k/uL RBC 2.52 L (3.80-5.40) m/uL Hgb 7.6 L (11.4-16.0) gm/dL Hct 24.2 L (34.0-46.0) % Plt Count 140 L (150-450) k/uL Neutrophils # 9.4 H (1.3-7.7) k/uL Lymphocytes # 0.9 L (1.0-4.8) k/uL PT (9.0-12.0) sec APTT (22.0-30.0) sec ABG pH (7.35-7.45) ABG pCO2 (35-45) mmHg ABG pO2 (83-108) mmHg ABG HCO3 (21-25) mmol/L ABG Total CO2 (19-24) mmol/L ABG O2 Saturation (94-97) % Chloride 110 H (98-107) mmol/L Glucose 128 H (74-99) mg/dL POC Glucose (mg/dL) 132 H (75-99) mg/dL Calcium (8.4-10.2) mg/dL Magnesium (1.6-2.3) mg/dL AST 50 H (14-36) U/L Total Protein 5.1 L (6.3-8.2) g/dL Albumin (3.5-5.0) g/dL Crossmatch 04/03/17 04/03/17 Range/Units 06:12 07:05 WBC (3.8-10.6) k/uL RBC (3.80-5.40) m/uL Hgb (11.4-16.0) gm/dL Hct (34.0-46.0) % Plt Count (150-450) k/uL Neutrophils # (1.3-7.7) k/uL Lymphocytes # (1.0-4.8) k/uL PT (9.0-12.0) sec APTT (22.0-30.0) sec ABG pH (7.35-7.45) ABG pCO2 (35-45) mmHg ABG pO2 (83-108) mmHg ABG HCO3 (21-25) mmol/L ABG Total CO2 (19-24) mmol/L ABG O2 Saturation (94-97) % Chloride (98-107) mmol/L Glucose (74-99) mg/dL POC Glucose (mg/dL) 140 H 146 H (75-99) mg/dL Calcium (8.4-10.2) mg/dL Magnesium (1.6-2.3) mg/dL AST (14-36) U/L Total Protein (6.3-8.2) g/dL Albumin (3.5-5.0) g/dL Crossmatch - Imaging and Cardiology Chest x-ray: report reviewed, image reviewed Assessment and Plan (1) History of coronary artery stent placement Status: Acute (2) Hypertension Status: Acute (3) Hyperlipidemia Status: Acute (4) Tobacco abuse Status: Acute (5) Coronary artery disease Status: Acute Plan: 1. Continue aspirin, statin, Plavix. 2. Will increase Lopressor to 50 mg by mouth twice a day, will give morning dose early, will try to wean esmolol drip. Will add lisinopril. 3. Will DC narcotic medication. Add Toradol 4. Will DC nitro drip. 5. Encourage incentive spirometry use. 6. Increase activity, out of bed to chair, ambulate in room. Physical therapy to follow. 7. Will monitor vital signs, chest tube output, urine output, daily labs and x- rays. 8. Insulin drip, diabetic management per internal medicine service. 9. GI /DVT prophylaxis. 10. More recommendations as patient progresses. Time with Patient: Greater than 30
[2017-04-03] MEDS ORDERED: METOPROLOL TARTRATE 12.5 MG TAB PO SCH ×2 (09:00→21:00)
[2017-04-03] MEDS: KETOROLAC 30 MG/ML 1 ML VIAL IVP SCH ×3 (09:02→20:19)
[2017-04-03 09:08] LABS: Glucose,Whole Blood 130 mg/dL (75-99)
[2017-04-03] MEDS: ATORVASTATIN 40 MG TAB PO SCH (09:20)
[2017-04-03] MEDS: ASPIRIN 325 MG TAB PO SCH (09:20)
--- NOTE | 2017-04-03 09:34 | XR ---
EXAMINATION TYPE: XR chest 1V portable DATE OF EXAM: 04/03/2017 6:22 AM COMPARISON: 04/02/2017 HISTORY: Post cardiac surgery TECHNIQUE: Single frontal view of the chest is obtained. FINDINGS: Mediastinal drain, epicardial lead, [place]-Bobby catheter, chest tube noted. Postsurgical changes and subsegmental atelectasis left lung base appears stable. No pleural effusion or sizable pneumothorax. IMPRESSION: 1. Postsurgical changes with left basilar consolidation likely in the basis of postoperative atelecta sis. 2. Interval removal of ET and NG tube
--- NOTE | 2017-04-03 09:36 | P.CRDCN ---
History of Present Illness Consult date: 04/03/17 History of present illness: This is a pleasant 47-year-old female patient who is a patient of Dr. VC Tripp with a known history of coronary artery disease, hypertension, and dyslipidemia, was admitted to the hospital yesterday and underwent CABG. The patient is known to have coronary artery disease with previous LAD stenting and circumflex stenting. She was experiencing chest discomfort consistent with angina. She underwent a heart catheterization in January and that showed severe triple-vessel CAD. She underwent coronary artery bypass grafting yesterday with LIM to LAD, SVG to diagonal, SVG to PDA. The patient was extubated. She is hypothermic today. She continues to be in a sinus rhythm. She is slightly hypertensive as well. She continues to be on dual antiplatelet therapy as well as metoprolol and lisinopril. Past Medical History Past Medical History: Coronary Artery Disease (CAD), Chest Pain / Angina, Hyperlipidemia, Hypertension, Myocardial Infarction (PR) Last Myocardial Infarction Date:: 2011 History of Any Multi-Drug Resistant Organisms: None Reported Past Surgical History: Section, Cholecystectomy, Heart Catheterization , Heart Catheterization With Stent, Hysterectomy, Tonsillectomy Additional Past Surgical History / Comment(s): 3 heart stents in 2011. Past Anesthesia/Blood Transfusion Reactions: No Reported Reaction Date of Last Stent Placement:: 2011 Past Psychological History: No Psychological Hx Reported Smoking Status: Current every day smoker Past Alcohol Use History: None Reported Additional Past Alcohol Use History / Comment(s): Smokes approx 1 PPD- started at age [age] years old. Past Drug Use History: None Reported - Past Family History Mother Family Medical History: No Reported History Father History Unknown: Yes Medications and Allergies Home Medications Medication Instructions Recorded Confirmed Type Aspirin 81 mg PO DAILY 03/21/17 04/02/17 History Atorvastatin [Lipitor] 40 mg PO HS 03/21/17 04/02/17 History Lisinopril [Zestril] 10 mg PO DAILY 03/21/17 04/02/17 History Metoprolol Tartrate [Lopressor] 50 mg PO BID 03/21/17 04/02/17 History Nitroglycerin Sl Tabs [Nitrostat] 0.4 mg SUBLINGUAL Q5M PRN 03/21/17 04/02/17 History Ciprofloxacin HCl [Cipro] 500 mg PO Q12HR 03/28/17 04/02/17 History Clopidogrel Bisulfate [Clopidogrel] 75 mg PO DAILY 04/01/17 04/02/17 History Allergies Allergy/AdvReac Type Severity Reaction Status Date / Time codeine Allergy Nausea & Verified 04/02/17 13:43 Vomiting Physical Exam Vitals: Vital Signs Temp Pulse Pulse Resp Pulse Ox 04/03/17 07:00 76 18 100 04/03/17 06:30 88 15 98 04/03/17 06:00 89 15 100 04/03/17 05:30 90 100 04/03/17 05:00 87 100 04/03/17 04:30 90 100 04/03/17 04:00 97.5 F L 89 18 100 04/03/17 03:30 90 100 04/03/17 03:00 97.5 F L 98 98 04/03/17 02:30 94 100 04/03/17 02:00 95 100 04/03/17 01:30 94 100 04/03/17 01:00 93 100 04/03/17 00:30 94 100 04/03/17 00:00 97 18 100 04/02/17 23:54 95 100 04/02/17 23:30 93 18 100 04/02/17 23:25 97 04/02/17 23:15 96 04/02/17 23:00 94 18 100 04/02/17 22:30 94 20 100 04/02/17 22:00 95 20 100 04/02/17 21:30 93 19 100 04/02/17 21:00 93 11 L 100 04/02/17 20:30 96 10 L 100 04/02/17 20:00 97.9 F 98 18 100 04/02/17 19:30 98 100 04/02/17 19:23 97 04/02/17 19:00 101 H 17 100 04/02/17 18:20 116 H 16 100 04/02/17 18:00 112 H 100 04/02/17 17:30 112 H 100 04/02/17 17:15 107 H 100 04/02/17 17:00 109 H 20 100 04/02/17 16:45 106 H 16 100 04/02/17 16:30 111 H 16 100 04/02/17 16:20 102 H 04/02/17 16:15 114 H 16 100 04/02/17 16:03 100 04/02/17 16:00 106 H 12 100 04/02/17 15:45 98 23 100 04/02/17 15:30 96 75 22 100 04/02/17 15:15 89 12 100 04/02/17 15:07 90 12 100 Intake and Output 04/02/17 04/03/17 04/03/17 22:59 06:59 14:59 Intake Total 750.130 375.921 71.870 Output Total 1585 986 200 Balance -834.870 -610.079 -128.130 Intake: IV 87 152 9 CO/CI 60 80 0 Pressure Bag 27 72 9 Intake, IV Titration 663.130 223.921 62.870 Amount Albumin Human 5% 250 ml 250 In Empty Bag 1 bag @ 250 mls/hr IVPB Q1HR PRN Rx#: [id number] Clevidipine Butyrate 25 0.167 mg In Empty Bag 1 bag @ 1 MG/HR 2 mls/hr IV .Q24H [facility] Rx#:[id number] Esmolol in Sodium 53.396 196.604 52.362 Chloride Pmx 2.5 gm In Saline 1 250ml.bag @ 25 MCG/KG/MIN 6.25 mls/hr IV .Q24H [facility] Rx#:[id number] Insulin Regular 100 unit 1.38 10.508 In Sodium Chloride 0.9% 100 ml @ Per Protocol IV .Q0M [facility] Rx#:[id number] Lactated Ringers 1,000 ml 200 @ 50 mls/hr IV .Q20H [facility] Rx#:[id number] Propofol 500 mg In Empty 58.187 27.317 Bag 1 bag @ Titrate IV . Q0M [facility] Rx#:[id number] ceFAZolin 2 gm In Sodium 100 Chloride 0.9% 100 ml @ 100 mls/hr IVPB Q8HR [facility] Rx#:[id number] Output: Chest Tube Drainage 455 266 0 Chest Tube Bilateral 225 140 0 Mediastinal Chest Tube Left Lateral 230 126 0 Chest Drainage 20 Left Knee 20 Urine 1130 700 200 Other: Weight 45 kg ABP, PAP, CO, CI - Last 8 Hours Arterial Blood Pressure 134/79 Arterial Blood Pressure 142/85 Arterial Blood Pressure 148/90 Arterial Blood Pressure 138/71 Arterial Blood Pressure 139/74 Arterial Blood Pressure 135/80 Arterial Blood Pressure 138/80 Arterial Blood Pressure 134/75 Arterial Blood Pressure 129/74 Arterial Blood Pressure 124/75 Arterial Blood Pressure 133/62 Pulmonary Artery Pressure 26/15 Pulmonary Artery Pressure 27/15 Pulmonary Artery Pressure 26/16 Pulmonary Artery Pressure 29/16 Pulmonary Artery Pressure 28/15 Pulmonary Artery Pressure 31/18 Pulmonary Artery Pressure 26/13 Pulmonary Artery Pressure 23/12 Pulmonary Artery Pressure 28/15 Pulmonary Artery Pressure 27/17 Pulmonary Artery Pressure 25/16 Cardiac Output 2.9 Cardiac Output 3.2 Cardiac Output 3.2 Cardiac Output 3.2 Cardiac Output 3.2 Cardiac Output 3.2 Cardiac Output 3.2 Cardiac Output 3.2 Cardiac Output 3.2 Cardiac Output 3.2 Cardiac Output 2.9 - Constitutional General appearance: no acute distress - Respiratory Respiratory: bilateral: diminished - Cardiovascular Rhythm: regular Results 04/03/17 04:56 04/03/17 04:56 Cardiac Enzymes 04/02/17 04/03/17 Range/Units 15:20 04:56 AST 41 H 50 H (14-36) U/L Coagulation 04/02/17 Range/Units 15:20 PT 14.7 H (9.0-12.0) sec APTT 35.0 H (22.0-30.0) sec CBC 04/02/17 04/02/17 04/03/17 Range/Units 15:20 18:00 04:56 WBC 6.2 14.9 H 11.0 H (3.8-10.6) k/uL RBC 2.42 L 2.68 L 2.52 L (3.80-5.40) m/uL Hgb 7.3 L D 8.1 L 7.6 L (11.4-16.0) gm/dL Hct 22.8 L 25.4 L 24.2 L (34.0-46.0) % Plt Count 106 L D 160 D 140 L (150-450) k/uL Comprehensive Metabolic Panel 04/02/17 04/03/17 Range/Units 15:20 04:56 Sodium 139 141 (137-145) mmol/L Potassium 3.8 5.0 (3.5-5.1) mmol/L Chloride 108 H 110 H (98-107) mmol/L Carbon Dioxide 24 23 (22-30) mmol/L BUN 16 17 (7-17) mg/dL Creatinine 0.67 0.70 (0.52-1.04) mg/dL Glucose 88 128 H (74-99) mg/dL Calcium 7.2 L 8.7 (8.4-10.2) mg/dL AST 41 H 50 H (14-36) U/L ALT 42 45 (9-52) U/L Alkaline Phosphatase 39 43 (38-126) U/L Total Protein 4.3 L 5.1 L (6.3-8.2) g/dL Albumin 2.7 L 3.5 (3.5-5.0) g/dL Current Medications Generic Name Dose Route Start Last Admin Trade Name Freq PRN Reason Stop Dose Admin Albuterol/Ipratropium 3 ml 04/03/17 13:49 Duoneb 0.5 Mg-3 Mg/3 Ml Soln INHALATION RT-Q2H PRN Shortness Of Breath Or Wheezing Albuterol/Ipratropium 3 ml 04/03/17 16:00 04/03/17 07:51 Duoneb 0.5 Mg-3 Mg/3 Ml Soln INHALATION Not Given RT-QID [facility] Aspirin 325 mg 04/03/17 09:00 Aspirin PO DAILY [facility] Atorvastatin Calcium 40 mg 04/03/17 09:00 Lipitor PO DAILY [facility] Benzocaine/Menthol 1 each 04/02/17 13:44 Cepacol Lozenge MUCOUS MEM Q2H PRN Sore Throat Bisacodyl 10 mg 04/03/17 13:49 Dulcolax RECTAL DAILY PRN Constipation Clopidogrel Bisulfate 75 mg 04/03/17 09:00 Plavix PO DAILY [facility] Heparin Sodium (Porcine) 5,000 unit 04/02/17 22:00 04/03/17 08:33 Heparin SQ 5,000 unit Q8HR [facility] Administration Acetaminophen 600 mg/ IV 60 mls @ 240 mls/hr 04/02/17 18:00 04/03/17 06:39 Solution IVPB 04/03/17 18:01 240 mls/hr Q6HR [facility] Administration Albumin Human 250 ml/ IV 250 mls @ 250 mls/hr 04/02/17 13:44 04/02/17 21:05 Solution IVPB 04/04/17 13:45 250 mls/hr Q1HR PRN Administration For Volume Calcium Gluconate 2,000 mg/ 120 mls @ 100 mls/hr 04/02/17 13:44 Sodium Chloride IVPB 04/03/17 13:45 ONCE PRN Ionized Calcium less than 4.4 Clevidipine 25 mg/ IV Solution 50 mls @ 2 mls/hr 04/02/17 13:45 04/02/17 15: 50 IV 2 mg/hr .Q24H [facility] 4 mls/hr Protocol Titration 1 MG/HR Insulin Human Regular 100 unit 101 mls @ 0 mls/hr 04/02/17 14:00 04/03/17 08: 10 / Sodium Chloride IV 1 units/hr .Q0M [facility] 1.01 mls/hr Protocol Titration Per Protocol Lactated Ringer's 1,000 mls @ 20 mls/hr 04/02/17 13:45 04/02/17 15:00 Lactated Ringers IV 50 mls/hr .Q24H [facility] Administration Esmolol HCl/Sodium Chloride 2. 250 mls @ 6.25 mls/hr 04/02/17 16:15 04/03/17 08:36 5 gm/ IV Solution IV 04/04/17 16:16 100 mcg/kg/min .Q24H [facility] 25.03 mls/hr Protocol Titration 25 MCG/KG/MIN Ketorolac Tromethamine 15 mg 04/03/17 08:45 04/03/17 09:02 Toradol IVP 04/07/17 08:39 15 mg Q6HR [facility] Administration Lisinopril 10 mg 04/03/17 09:00 Zestril PO DAILY [facility] Magnesium Hydroxide 2,400 mg 04/03/17 13:49 Milk Of Magnesia PO BID PRN Constipation Metoclopramide HCl 10 mg 04/02/17 13:44 04/03/17 07:57 Reglan IVP 10 mg Q4H PRN Administration Nausea And Vomiting Metoprolol Tartrate 50 mg 04/03/17 21:00 Lopressor PO BID [facility] Miscellaneous Information 1 each 04/02/17 13:44 Magnesium Per Protocol MISCELLANE DAILY PRN Per Protocol Protocol Miscellaneous Information 1 each 04/02/17 13:44 Phosphorus Per Protocol MISCELLANE DAILY PRN Per Protocol Protocol Miscellaneous Information 1 each 04/02/17 13:44 Potassium Per Protocol MISCELLANE DAILY PRN Per Protocol Protocol Ondansetron HCl 4 mg 04/02/17 13:44 04/03/17 04:00 Zofran IVP 4 mg Q6HR PRN Administration Nausea And Vomiting Pantoprazole Sodium 40 mg 04/03/17 09:00 04/03/17 08:20 Protonix IVP 40 mg DAILY [facility] Administration Senna/Docusate Sodium 2 each 04/03/17 21:00 Senokot-S PO HS [facility] Sodium Chloride 10 ml 04/02/17 21:00 04/03/17 08:33 Saline Flush IV 10 ml BID [facility] Administration Intake and Output 04/02/17 04/03/17 04/03/17 22:59 06:59 14:59 Intake Total 750.130 375.921 71.870 Output Total 1585 986 200 Balance -834.870 -610.079 -128.130 Intake: IV 87 152 9 CO/CI 60 80 0 Pressure Bag 27 72 9 Intake, IV Titration 663.130 223.921 62.870 Amount Albumin Human 5% 250 ml 250 In Empty Bag 1 bag @ 250 mls/hr IVPB Q1HR PRN Rx#: [id number] Clevidipine Butyrate 25 0.167 mg In Empty Bag 1 bag @ 1 MG/HR 2 mls/hr IV .Q24H [facility] Rx#:[id number] Esmolol in Sodium 53.396 196.604 52.362 Chloride Pmx 2.5 gm In Saline 1 250ml.bag @ 25 MCG/KG/MIN 6.25 mls/hr IV .Q24H [facility] Rx#:[id number] Insulin Regular 100 unit 1.38 10.508 In Sodium Chloride 0.9% 100 ml @ Per Protocol IV .Q0M [facility] Rx#:[id number] Lactated Ringers 1,000 ml 200 @ 50 mls/hr IV .Q20H [facility] Rx#:[id number] Propofol 500 mg In Empty 58.187 27.317 Bag 1 bag @ Titrate IV . Q0M [facility] Rx#:[id number] ceFAZolin 2 gm In Sodium 100 Chloride 0.9% 100 ml @ 100 mls/hr IVPB Q8HR [facility] Rx#:[id number] Output: Chest Tube Drainage 455 266 0 Chest Tube Bilateral 225 140 0 Mediastinal Chest Tube Left Lateral 230 126 0 Chest Drainage 20 Left Knee 20 Urine 1130 700 200 Other: Weight 45 kg 04/03/17 04:56 04/03/17 04:56 Assessment and Plan Plan: Assessment #1 CAD and status post CABG as described above #2 systemic hypertension #3 dyslipidemia Plan #1 continue the current medical treatment was dual antiplatelet therapy and statin #2 lisinopril was started today and she is on metoprolol #3 continue monitor the heart rhythm and the patient has been maintaining normal sinus mechanism #4 follow-up with the patient
[2017-04-03 10:04] LABS: Glucose,Whole Blood 130 mg/dL (75-99)
[2017-04-03] MEDS: LISINOPRIL 10 MG TAB PO SCH (10:24)
[2017-04-03] MEDS: CLOPIDOGREL 75 MG TAB PO SCH (10:24)
[2017-04-03 10:38] LABS: ABG Base Excess -1.7 mmol/L; ABG HCO3 22 mmol/L (21-25); ABG PCO2 33 mmHg (35-45); ABG PH 7.43 (7.35-7.45); ABG PO2 383 mmHg (83-108); ABG TCO2 23 mmol/L (19-24)
[2017-04-03 10:39] LABS: ABG Base Excess -1.9 mmol/L; ABG HCO3 21 mmol/L (21-25); ABG Oxygen Saturation 99.9 % (94-97); ABG PCO2 31 mmHg (35-45); ABG PH 7.45 (7.35-7.45); ABG PO2 248 mmHg (83-108); ABG TCO2 22 mmol/L (19-24)
[2017-04-03 10:40] LABS: ABG HCO3 23 mmol/L (21-25); ABG Oxygen Saturation 99.9 % (94-97); ABG PCO2 31 mmHg (35-45); ABG PH 7.48 (7.35-7.45); ABG PO2 278 mmHg (83-108); ABG TCO2 24 mmol/L (19-24)
[2017-04-03 10:42] LABS: ABG Base Excess -1.7 mmol/L; ABG HCO3 24 mmol/L (21-25); ABG Oxygen Saturation 99.9 % (94-97); ABG PCO2 50 mmHg (35-45); ABG PH 7.31 (7.35-7.45); ABG PO2 322 mmHg (83-108); ABG TCO2 26 mmol/L (19-24)
[2017-04-03 10:43] LABS: ABG Base Excess -2.6 mmol/L; ABG HCO3 22 mmol/L (21-25); ABG Oxygen Saturation 99.9 % (94-97); ABG PCO2 38 mmHg (35-45); ABG PH 7.37 (7.35-7.45); ABG PO2 303 mmHg (83-108); ABG TCO2 23 mmol/L (19-24)
[2017-04-03 10:44] LABS: ABG HCO3 21 mmol/L (21-25); ABG Oxygen Saturation 99.8 % (94-97); ABG PCO2 32 mmHg (35-45); ABG PH 7.44 (7.35-7.45); ABG PO2 200 mmHg (83-108); ABG TCO2 22 mmol/L (19-24)
[2017-04-03 11:03] LABS: Glucose,Whole Blood 126 mg/dL (75-99)
[2017-04-03] MEDS: METOPROLOL TARTRATE 25 MG TAB PO STA ×2 (12:05→14:19)
[2017-04-03 12:20] LABS: Glucose,Whole Blood 124 mg/dL (75-99)
[2017-04-03 13:03] LABS: Glucose,Whole Blood 119 mg/dL (75-99)
[2017-04-03] MEDS ORDERED: BISACODYL 10 MG SUPP RECTAL PRN (13:49)
[2017-04-03] MEDS ORDERED: IPRATROPIUM-ALBUTEROL 3 ML NEB INHALATION PRN (13:49)
[2017-04-03] MEDS ORDERED: MAGNESIUM HYDROXIDE 2,400 MG/10 ML CUP PO PRN (13:49)
--- NOTE | 2017-04-03 14:03 | P.PN ---
Subjective Principal diagnosis: Status post CABG postoperative day #1 This is a 47-year-old female patient who follows with Dr. VC Tripp as her charge manager. She has a history of coronary artery disease with previous stent placement to the LAD diagonal and circumflex coronary arteries back in 2011. She had been having recurrent class III angina that was relieved with nitroglycerin. She presented here on 03/24/2017 for an elective cardiac catheterization which revealed diffuse triple-vessel disease with multiple lesions in the LAD. There was a tight lesion in the circumflex and the right coronary artery was totally occluded. She was recommended coronary artery bypass grafting. She presented here today for an elective surgery which was performed by Dr. Morales. He performed a LIM to the LAD, saphenous pain graft to the OM and saphenous vein graft to the PDA. She is seen immediately postoperative in the intensive care unit. She is currently sedated on propofol 50 mcg/kg/m. She is on nitroglycerin at 20 mg/m and Cleviprex at 2 mg per hour. His IV is lactated Ringer's at 50 MLS per hour. Her current vent settings are SIMV mode of 12, tidal volume 360, FiO2 of 80% and a PEEP of 5. Blood gases revealed a PaO2 of 175, pCO2 21 and a pH of 7.56. 6 reveal some left lower lobe atelectasis. There is a split mediastinal chest tubes and one left pleural chest tube. Nasogastric tube is in place. No sizable pneumothorax or effusion. Her hemoglobin is 7.3. Patient was reevaluated today on 04/03/2017. She was extubated uneventfully last night. Her ABG was reflecting a picture of respiratory alkalosis, however this was felt to be and at her patient was later switched to an assist control mode of mechanical ventilation, her tidal volumes were adjusted, and follow-up ABG after all this adjustment showed normal ABG. Again the patient was extubated overnight, and she is doing well except for intermittent episodes of nausea and vomiting, patient is receiving Zofran. Labs from today were reviewed, hemoglobin is 7.6. ABG prior to extubation showed a pO2 of 113 pCO2 of 34 pH of 7.40. Chest x-ray showed mostly postoperative changes, no evidence of pneumonia and no evidence of congestive heart failure. Objective - Vital Signs Vital signs: Vital Signs Temp 96.1 F L 04/03/17 12:00 Pulse 80 05/04/17 13:00 Resp 18 04/03/17 12:00 BP 146/92 04/03/17 13:00 Pulse Ox 100 04/03/17 13:00 Intake & Output 04/02/17 04/03/17 04/03/17 18:59 06:59 18:59 Intake Total 618.731 851.320 577.383 Output Total 3175 1406 1125 Balance -2556.269 -554.680 -547.617 Weight 45 kg 45 kg Intake: IV 33 239 134 CO/CI 140 80 Pressure Bag 99 54 Intake, IV Titration 324.731 612.320 443.383 Amount Albumin Human 5% 250 ml 250 In Empty Bag 1 bag @ 250 mls/hr IVPB Q1HR PRN Rx#: [id number] Clevidipine Butyrate 25 0.167 mg In Empty Bag 1 bag @ 1 MG/HR 2 mls/hr IV .Q24H [facility] Rx#:[id number] Esmolol in Sodium 250.000 132.875 Chloride Pmx 2.5 gm In Saline 1 250ml.bag @ 25 MCG/KG/MIN 6.25 mls/hr IV .Q24H [facility] Rx#:[id number] Insulin Regular 100 unit 1.38 10.508 In Sodium Chloride 0.9% 100 ml @ Per Protocol IV .Q0M [facility] Rx#:[id number] Lactated Ringers 1,000 ml 200 50 200 @ 20 mls/hr IV .Q24H [facility] Rx#:[id number] Propofol 500 mg In Empty 24.564 60.940 Bag 1 bag @ Titrate IV . Q0M [facility] Rx#:[id number] ceFAZolin 2 gm In Sodium 100 100 Chloride 0.9% 100 ml @ 100 mls/hr IVPB Q8HR [facility] Rx#:[id number] Blood Product 261 Platelet Pheresis Acda2 261 Unit [id number] Output: Chest Tube Drainage 385 396 100 Chest Tube Bilateral 205 190 60 Mediastinal Chest Tube Left Lateral 180 206 40 Chest Drainage 20 Left Knee 20 Urine 1890 990 935 Emesis 90 Estimated Blood Loss 900 ABP, PAP, CO, CI - Last Documented Arterial Blood Pressure 154/87 Pulmonary Artery Pressure 23/13 Cardiac Output 2.8 Cardiac Index 2.0 - Exam Gen.: Revealed a 47-year-old female, in no distress, on nasal cannula, HEAD: Normocephalic. EYES: Within normal. NOSE: Clear with pink turbinates. THROAT: Clear. NECK: No masses, no JVD. CHEST: Dressing dry and intact. Splint mediastinal and left pleural chest tubes in place. Pacer wires in place. LUNGS: Equal air entry with crackles in the posterior bases more so on the left. CVS: S1 and S2 normal with no audible murmurs, regular rhythm. ABDOMEN: No hepatosplenomegaly, no active bowel sounds. SPINE: No scoliosis or deformity SKIN: No rashes Extremities: There are bilateral Yury wraps to lower extremities. CAROL drain to the left lower extremity. Peripheral pulses are intact. - Labs CBC & Chem 7: 04/03/17 04:56 04/03/17 04:56 Labs: Abnormal Lab Results - Last 24 Hours (Table) 03/24/17 04/02/17 04/02/17 Range/Units 17:08 08:53 10:18 WBC (3.8-10.6) k/uL RBC (3.80-5.40) m/uL Hgb (11.4-16.0) gm/dL Hct (34.0-46.0) % Plt Count (150-450) k/uL Neutrophils # (1.3-7.7) k/uL Lymphocytes # (1.0-4.8) k/uL PT (9.0-12.0) sec APTT (22.0-30.0) sec ABG pH (7.35-7.45) ABG pCO2 33 L 31 L (35-45) mmHg ABG pO2 383 H 248 H (83-108) mmHg ABG HCO3 (21-25) mmol/L ABG Total CO2 (19-24) mmol/L ABG O2 Saturation 100.0 H 99.9 H (94-97) % ABG Hematocrit (34.0-46.0) % ABG Potassium (3.4-4.5) mmol/L Chloride (98-107) mmol/L Glucose (74-99) mg/dL POC Glucose (mg/dL) (75-99) mg/dL Calcium (8.4-10.2) mg/dL Magnesium (1.6-2.3) mg/dL AST (14-36) U/L Total Protein (6.3-8.2) g/dL Albumin (3.5-5.0) g/dL Arterial Blood Potassium (3.4-4.5) mmol/L Crossmatch See Detail 04/02/17 04/02/17 04/02/17 Range/Units 11:27 12:17 12:59 WBC (3.8-10.6) k/uL RBC (3.80-5.40) m/uL Hgb (11.4-16.0) gm/dL Hct (34.0-46.0) % Plt Count (150-450) k/uL Neutrophils # (1.3-7.7) k/uL Lymphocytes # (1.0-4.8) k/uL PT (9.0-12.0) sec APTT (22.0-30.0) sec ABG pH 7.48 H 7.31 L (7.35-7.45) ABG pCO2 31 L 50 H (35-45) mmHg ABG pO2 278 H 322 H 303 H (83-108) mmHg ABG HCO3 (21-25) mmol/L ABG Total CO2 26 H (19-24) mmol/L ABG O2 Saturation 99.9 H 99.9 H 99.9 H (94-97) % ABG Hematocrit 23 L 26 L 23 L (34.0-46.0) % ABG Potassium 6.1 H 5.8 H 5.2 H (3.4-4.5) mmol/L Chloride (98-107) mmol/L Glucose (74-99) mg/dL POC Glucose (mg/dL) (75-99) mg/dL Calcium (8.4-10.2) mg/dL Magnesium (1.6-2.3) mg/dL AST (14-36) U/L Total Protein (6.3-8.2) g/dL Albumin (3.5-5.0) g/dL Arterial Blood Potassium 6.1 H 5.8 H 5.2 H (3.4-4.5) mmol/L Crossmatch 04/02/17 04/02/17 04/02/17 Range/Units 13:56 13:57 15:20 WBC (3.8-10.6) k/uL RBC 2.42 L (3.80-5.40) m/uL Hgb 7.3 L D (11.4-16.0) gm/dL Hct 22.8 L (34.0-46.0) % Plt Count 106 L D (150-450) k/uL Neutrophils # (1.3-7.7) k/uL Lymphocytes # (1.0-4.8) k/uL PT (9.0-12.0) sec APTT (22.0-30.0) sec ABG pH (7.35-7.45) ABG pCO2 32 L (35-45) mmHg ABG pO2 200 H (83-108) mmHg ABG HCO3 (21-25) mmol/L ABG Total CO2 (19-24) mmol/L ABG O2 Saturation 99.8 H (94-97) % ABG Hematocrit 29 L (34.0-46.0) % ABG Potassium (3.4-4.5) mmol/L Chloride (98-107) mmol/L Glucose (74-99) mg/dL POC Glucose (mg/dL) 115 H (75-99) mg/dL Calcium (8.4-10.2) mg/dL Magnesium (1.6-2.3) mg/dL AST (14-36) U/L Total Protein (6.3-8.2) g/dL Albumin (3.5-5.0) g/dL Arterial Blood Potassium (3.4-4.5) mmol/L Crossmatch 04/02/17 04/02/17 04/02/17 Range/Units 15:20 15:20 15:48 WBC (3.8-10.6) k/uL RBC (3.80-5.40) m/uL Hgb (11.4-16.0) gm/dL Hct (34.0-46.0) % Plt Count (150-450) k/uL Neutrophils # (1.3-7.7) k/uL Lymphocytes # (1.0-4.8) k/uL PT 14.7 H (9.0-12.0) sec APTT 35.0 H (22.0-30.0) sec ABG pH (7.35-7.45) ABG pCO2 (35-45) mmHg ABG pO2 (83-108) mmHg ABG HCO3 (21-25) mmol/L ABG Total CO2 (19-24) mmol/L ABG O2 Saturation (94-97) % ABG Hematocrit (34.0-46.0) % ABG Potassium (3.4-4.5) mmol/L Chloride 108 H (98-107) mmol/L Glucose (74-99) mg/dL POC Glucose (mg/dL) 104 H (75-99) mg/dL Calcium 7.2 L (8.4-10.2) mg/dL Magnesium 2.7 H (1.6-2.3) mg/dL AST 41 H (14-36) U/L Total Protein 4.3 L (6.3-8.2) g/dL Albumin 2.7 L (3.5-5.0) g/dL Arterial Blood Potassium (3.4-4.5) mmol/L Crossmatch 04/02/17 04/02/17 04/02/17 Range/Units 15:48 16:59 18:00 WBC 14.9 H (3.8-10.6) k/uL RBC 2.68 L (3.80-5.40) m/uL Hgb 8.1 L (11.4-16.0) gm/dL Hct 25.4 L (34.0-46.0) % Plt Count (150-450) k/uL Neutrophils # 13.0 H (1.3-7.7) k/uL Lymphocytes # (1.0-4.8) k/uL PT (9.0-12.0) sec APTT (22.0-30.0) sec ABG pH 7.56 H (7.35-7.45) ABG pCO2 21 L (35-45) mmHg ABG pO2 175 H (83-108) mmHg ABG HCO3 19 L (21-25) mmol/L ABG Total CO2 (19-24) mmol/L ABG O2 Saturation 100.0 H (94-97) % ABG Hematocrit (34.0-46.0) % ABG Potassium (3.4-4.5) mmol/L Chloride (98-107) mmol/L Glucose (74-99) mg/dL POC Glucose (mg/dL) 143 H (75-99) mg/dL Calcium (8.4-10.2) mg/dL Magnesium (1.6-2.3) mg/dL AST (14-36) U/L Total Protein (6.3-8.2) g/dL Albumin (3.5-5.0) g/dL Arterial Blood Potassium (3.4-4.5) mmol/L Crossmatch 04/02/17 04/02/17 04/02/17 Range/Units 18:14 19:28 20:13 WBC (3.8-10.6) k/uL RBC (3.80-5.40) m/uL Hgb (11.4-16.0) gm/dL Hct (34.0-46.0) % Plt Count (150-450) k/uL Neutrophils # (1.3-7.7) k/uL Lymphocytes # (1.0-4.8) k/uL PT (9.0-12.0) sec APTT (22.0-30.0) sec ABG pH (7.35-7.45) ABG pCO2 (35-45) mmHg ABG pO2 (83-108) mmHg ABG HCO3 (21-25) mmol/L ABG Total CO2 (19-24) mmol/L ABG O2 Saturation (94-97) % ABG Hematocrit (34.0-46.0) % ABG Potassium (3.4-4.5) mmol/L Chloride (98-107) mmol/L Glucose (74-99) mg/dL POC Glucose (mg/dL) 141 H 114 H 113 H (75-99) mg/dL Calcium (8.4-10.2) mg/dL Magnesium (1.6-2.3) mg/dL AST (14-36) U/L Total Protein (6.3-8.2) g/dL Albumin (3.5-5.0) g/dL Arterial Blood Potassium (3.4-4.5) mmol/L Crossmatch 04/02/17 04/02/17 04/02/17 Range/Units 20:58 21:25 22:20 WBC (3.8-10.6) k/uL RBC (3.80-5.40) m/uL Hgb (11.4-16.0) gm/dL Hct (34.0-46.0) % Plt Count (150-450) k/uL Neutrophils # (1.3-7.7) k/uL Lymphocytes # (1.0-4.8) k/uL PT (9.0-12.0) sec APTT (22.0-30.0) sec ABG pH 7.69 H* (7.35-7.45) ABG pCO2 <15 L* (35-45) mmHg ABG pO2 204 H (83-108) mmHg ABG HCO3 17 L (21-25) mmol/L ABG Total CO2 17 L (19-24) mmol/L ABG O2 Saturation 100.0 H (94-97) % ABG Hematocrit (34.0-46.0) % ABG Potassium (3.4-4.5) mmol/L Chloride (98-107) mmol/L Glucose (74-99) mg/dL POC Glucose (mg/dL) 119 H 134 H (75-99) mg/dL Calcium (8.4-10.2) mg/dL Magnesium (1.6-2.3) mg/dL AST (14-36) U/L Total Protein (6.3-8.2) g/dL Albumin (3.5-5.0) g/dL Arterial Blood Potassium (3.4-4.5) mmol/L Crossmatch 04/02/17 04/02/17 04/03/17 Range/Units 23:01 23:40 00:02 WBC (3.8-10.6) k/uL RBC (3.80-5.40) m/uL Hgb (11.4-16.0) gm/dL Hct (34.0-46.0) % Plt Count (150-450) k/uL Neutrophils # (1.3-7.7) k/uL Lymphocytes # (1.0-4.8) k/uL PT (9.0-12.0) sec APTT (22.0-30.0) sec ABG pH (7.35-7.45) ABG pCO2 33 L (35-45) mmHg ABG pO2 170 H (83-108) mmHg ABG HCO3 20 L (21-25) mmol/L ABG Total CO2 (19-24) mmol/L ABG O2 Saturation 100.0 H (94-97) % ABG Hematocrit (34.0-46.0) % ABG Potassium (3.4-4.5) mmol/L Chloride (98-107) mmol/L Glucose (74-99) mg/dL POC Glucose (mg/dL) 130 H 140 H (75-99) mg/dL Calcium (8.4-10.2) mg/dL Magnesium (1.6-2.3) mg/dL AST (14-36) U/L Total Protein (6.3-8.2) g/dL Albumin (3.5-5.0) g/dL Arterial Blood Potassium (3.4-4.5) mmol/L Crossmatch 04/03/17 04/03/17 04/03/17 Range/Units 01:21 02:07 03:05 WBC (3.8-10.6) k/uL RBC (3.80-5.40) m/uL Hgb (11.4-16.0) gm/dL Hct (34.0-46.0) % Plt Count (150-450) k/uL Neutrophils # (1.3-7.7) k/uL Lymphocytes # (1.0-4.8) k/uL PT (9.0-12.0) sec APTT (22.0-30.0) sec ABG pH (7.35-7.45) ABG pCO2 (35-45) mmHg ABG pO2 (83-108) mmHg ABG HCO3 (21-25) mmol/L ABG Total CO2 (19-24) mmol/L ABG O2 Saturation (94-97) % ABG Hematocrit (34.0-46.0) % ABG Potassium (3.4-4.5) mmol/L Chloride (98-107) mmol/L Glucose (74-99) mg/dL POC Glucose (mg/dL) 129 H 119 H 140 H (75-99) mg/dL Calcium (8.4-10.2) mg/dL Magnesium (1.6-2.3) mg/dL AST (14-36) U/L Total Protein (6.3-8.2) g/dL Albumin (3.5-5.0) g/dL Arterial Blood Potassium (3.4-4.5) mmol/L Crossmatch 04/03/17 04/03/17 04/03/17 Range/Units 03:08 04:55 04:56 WBC 11.0 H (3.8-10.6) k/uL RBC 2.52 L (3.80-5.40) m/uL Hgb 7.6 L (11.4-16.0) gm/dL Hct 24.2 L (34.0-46.0) % Plt Count 140 L (150-450) k/uL Neutrophils # 9.4 H (1.3-7.7) k/uL Lymphocytes # 0.9 L (1.0-4.8) k/uL PT (9.0-12.0) sec APTT (22.0-30.0) sec ABG pH (7.35-7.45) ABG pCO2 34 L (35-45) mmHg ABG pO2 113 H (83-108) mmHg ABG HCO3 (21-25) mmol/L ABG Total CO2 (19-24) mmol/L ABG O2 Saturation 99.0 H (94-97) % ABG Hematocrit (34.0-46.0) % ABG Potassium (3.4-4.5) mmol/L Chloride (98-107) mmol/L Glucose (74-99) mg/dL POC Glucose (mg/dL) 132 H (75-99) mg/dL Calcium (8.4-10.2) mg/dL Magnesium (1.6-2.3) mg/dL AST (14-36) U/L Total Protein (6.3-8.2) g/dL Albumin (3.5-5.0) g/dL Arterial Blood Potassium (3.4-4.5) mmol/L Crossmatch 04/03/17 04/03/17 04/03/17 Range/Units 04:56 06:12 07:05 WBC (3.8-10.6) k/uL RBC (3.80-5.40) m/uL Hgb (11.4-16.0) gm/dL Hct (34.0-46.0) % Plt Count (150-450) k/uL Neutrophils # (1.3-7.7) k/uL Lymphocytes # (1.0-4.8) k/uL PT (9.0-12.0) sec APTT (22.0-30.0) sec ABG pH (7.35-7.45) ABG pCO2 (35-45) mmHg ABG pO2 (83-108) mmHg ABG HCO3 (21-25) mmol/L ABG Total CO2 (19-24) mmol/L ABG O2 Saturation (94-97) % ABG Hematocrit (34.0-46.0) % ABG Potassium (3.4-4.5) mmol/L Chloride 110 H (98-107) mmol/L Glucose 128 H (74-99) mg/dL POC Glucose (mg/dL) 140 H 146 H (75-99) mg/dL Calcium (8.4-10.2) mg/dL Magnesium (1.6-2.3) mg/dL AST 50 H (14-36) U/L Total Protein 5.1 L (6.3-8.2) g/dL Albumin (3.5-5.0) g/dL Arterial Blood Potassium (3.4-4.5) mmol/L Crossmatch 04/03/17 04/03/17 04/03/17 Range/Units 08:02 09:07 10:02 WBC (3.8-10.6) k/uL RBC (3.80-5.40) m/uL Hgb (11.4-16.0) gm/dL Hct (34.0-46.0) % Plt Count (150-450) k/uL Neutrophils # (1.3-7.7) k/uL Lymphocytes # (1.0-4.8) k/uL PT (9.0-12.0) sec APTT (22.0-30.0) sec ABG pH (7.35-7.45) ABG pCO2 (35-45) mmHg ABG pO2 (83-108) mmHg ABG HCO3 (21-25) mmol/L ABG Total CO2 (19-24) mmol/L ABG O2 Saturation (94-97) % ABG Hematocrit (34.0-46.0) % ABG Potassium (3.4-4.5) mmol/L Chloride (98-107) mmol/L Glucose (74-99) mg/dL POC Glucose (mg/dL) 128 H 130 H 130 H (75-99) mg/dL Calcium (8.4-10.2) mg/dL Magnesium (1.6-2.3) mg/dL AST (14-36) U/L Total Protein (6.3-8.2) g/dL Albumin (3.5-5.0) g/dL Arterial Blood Potassium (3.4-4.5) mmol/L Crossmatch 04/03/17 04/03/17 04/03/17 Range/Units 11:00 12:19 13:01 WBC (3.8-10.6) k/uL RBC (3.80-5.40) m/uL Hgb (11.4-16.0) gm/dL Hct (34.0-46.0) % Plt Count (150-450) k/uL Neutrophils # (1.3-7.7) k/uL Lymphocytes # (1.0-4.8) k/uL PT (9.0-12.0) sec APTT (22.0-30.0) sec ABG pH (7.35-7.45) ABG pCO2 (35-45) mmHg ABG pO2 (83-108) mmHg ABG HCO3 (21-25) mmol/L ABG Total CO2 (19-24) mmol/L ABG O2 Saturation (94-97) % ABG Hematocrit (34.0-46.0) % ABG Potassium (3.4-4.5) mmol/L Chloride (98-107) mmol/L Glucose (74-99) mg/dL POC Glucose (mg/dL) 126 H 124 H 119 H (75-99) mg/dL Calcium (8.4-10.2) mg/dL Magnesium (1.6-2.3) mg/dL AST (14-36) U/L Total Protein (6.3-8.2) g/dL Albumin (3.5-5.0) g/dL Arterial Blood Potassium (3.4-4.5) mmol/L Crossmatch Assessment and Plan Plan: #1 Severe diffuse triple-vessel coronary artery disease status post coronary artery bypass grafting utilizing a LIM to the LAD, saphenous vein graft to the obtuse marginal branch, saphenous vein graft to the posterior descending artery. Operative day #1 #2 Ventilator-dependent as an expected outcome to thoracotomy. #3 Coronary artery disease with previous stent placements 3 to the LAD, diagonal and circumflex coronary arteries. #4 Hyperlipidemia. #5 Hypertension. #6 Chronic and ongoing tobacco dependence. Recommendation: Patient was extubated last night uneventfully, tolerated the extubation quite well, plan is to continue bronchodilators, incentive spirometry , early ambulation, and we'll continue to follow. Time with Patient: Less than 30
[2017-04-03 14:17] LABS: Glucose,Whole Blood 109 mg/dL (75-99)
[2017-04-03 15:08] LABS: Glucose,Whole Blood 114 mg/dL (75-99)
[2017-04-03 16:12] LABS: Glucose,Whole Blood 110 mg/dL (75-99)
[2017-04-03] MEDS: CLEVIDIPINE BUTYRATE 25 MG in EMPTY BAG 1 BAG IV SCH (17:19)
[2017-04-03] MEDS: LACTATED RINGERS 1,000 ML IV SCH (17:19)
[2017-04-03 18:08] LABS: Glucose,Whole Blood 117 mg/dL (75-99)
--- NOTE | 2017-04-03 18:34 | CONS ---
DATE OF CONSULTATION: REASON FOR CONSULTATION: Medical management. HISTORY OF PRESENTING ILLNESS: This is a 47-year-old female with history CAD, hypertension, dyslipidemia, who was brought into the hospital for coronary artery bypass graft. Patient has had previous PCI to the LAD and the circumflex. Patient underwent a repeat cardiac catheterization and was noted to have severe triple-vessel disease; hence CABG was appropriate. Patient underwent a bypass with LIM to LAD, SVG to the diagonal and SVG to the PDA. Patient was seen in the intensive care unit. Patient is extubated, currently maintained on Esmolol. Patient initially was on a ( ) dose of insulin drip. Patient is extubated. Denies having any additional complaints. Currently has 2 mediastinal tubes and a left-sided chest tube. Past medical history includes: 1. CAD. 2. Dyslipidemia. 3. Hypertension. Past surgical history includes: 1. Cholecystectomy. 2. Cardiac catheterization. 3. . 4. Tonsillectomy. SOCIAL HISTORY: Ongoing tobacco use. No significant alcohol or illicit drug use. FAMILY HISTORY: None reported. Home medications were reviewed on the H&P. ALLERGIES: CODEINE. PHYSICAL EXAM: VITALS: Temperature 97.5, heart rate 76, respiratory rate 18, saturation 100% on supplemental oxygen. GENERAL APPEARANCE: Alert and oriented x3. Does not appear to be in distress. HEAD: Atraumatic, normocephalic. Pupils equal, round and reactive to light and accommodation. RESPIRATORY: Air movement is appreciated; diminished. No wheezing, crackles or rhonchi. ABDOMEN: Soft, nontender. No organomegaly. CHEST: Irregular. No murmurs appreciated. Chest tubes as described above. NEURO: No focal motor or sensory deficits noted. Laboratory data include hemoglobin 7.6, hematocrit 24.2. White count 11, platelets of 140. Sodium 141, potassium 5, chloride 110, bicarb 23. BUN 17, creatinine of 0.70. ASSESSMENT AND PLAN: 1. Coronary artery disease, status post coronary artery bypass graft x3, postoperative day 1. 2. Ongoing tobacco use. 3. Essential hypertension. 4. Dyslipidemia. 5. ( ) hyperglycemia. 6. Acute blood loss anemia as expected from the surgery. PLAN: Continue ongoing care. Patient will likely not need any supplemental insulin. Will maintain the patient on before-meal and at-bedtime NovoLog for any episodes of hyperglycemia associated with meals. CASSY inhibitor is reinitiated. Patient is maintained on aspirin, dual antiplatelet therapy and statin. Titrate off Esmolol. Thereafter metoprolol can be restarted as well. Thank you for the consultation. Will follow the patient along with you.
[2017-04-03 20:19] LABS: Glucose,Whole Blood 115 mg/dL (75-99)
[2017-04-03] MEDS ORDERED: METOPROLOL TARTRATE 25 MG TAB PO SCH (21:00)
[2017-04-03 21:29] LABS: Glucose,Whole Blood 112 mg/dL (75-99)
[2017-04-03] MEDS: METOPROLOL TARTRATE 50 MG TAB PO SCH (22:12)
[2017-04-03] MEDS: SENNOSIDES-DOCUSATE SODIUM 1 EACH TAB PO SCH (22:12)
[2017-04-03 22:13] LABS: Glucose,Whole Blood 109 mg/dL (75-99)
[2017-04-03] MEDS ORDERED: METOPROLOL TARTRATE 5 MG/5 ML VIAL IVP STA (22:39)
[2017-04-03] MEDS ORDERED: HYDROcodone/APAP 5-325MG 1 EACH TAB PO PRN ×2 (23:59)
[2017-04-04] MEDS: KETOROLAC 30 MG/ML 1 ML VIAL IVP SCH ×4 (00:13→19:50)
[2017-04-04] MEDS: HEPARIN SODIUM,PORCINE 5,000 UNIT/ML 1 ML VIAL SQ SCH ×3 (00:13→18:14)
[2017-04-04] MEDS: ONDANSETRON 4 MG/2 ML VIAL IVP PRN ×2 (00:14→08:38)
[2017-04-04 00:15] LABS: Glucose,Whole Blood 113 mg/dL (75-99)
[2017-04-04] MEDS ORDERED: METOPROLOL TARTRATE 5 MG/5 ML VIAL IVP STA (00:25)
[2017-04-04] MEDS: ESMOLOL IN SODIUM CHLORIDE PMX 2.5 GM in SALINE 1 250ML.BAG IV SCH ×3 (01:44→13:11)
[2017-04-04] MEDS ORDERED: hydrALAZINE HCL 20 MG/ML 1 ML VIAL IVP STA ×2 (02:08→13:45)
[2017-04-04 02:20] LABS: Glucose,Whole Blood 111 mg/dL (75-99)
[2017-04-04 04:25] LABS: Glucose,Whole Blood 118 mg/dL (75-99)
[2017-04-04 05:04] LABS: Basophils % (A) 0 %; CH 30.2; CHCM 32.2; Eosinophils % (A) 0 %; HCT 24.8 % (34.0-46.0); HDW 2.48; HGB 7.8 gm/dL (11.4-16.0); Luc # (Auto) 0.14; Luc % (Auto) 1; Lymphocytes # (A) 1.5 k/uL (1.0-4.8); Lymphocytes % (A) 12 %; MCH 29.7 pg (25.0-35.0); MCHC 31.5 g/dL (31.0-37.0); MCV 94.1 fL (80.0-100.0); Mean Platelet Volume 8.2; Monocytes # (A) 0.6 k/uL (0-1.0); Monocytes % (A) 5 %; Neutrophils # (A) 10.4 k/uL (1.3-7.7); Neutrophils % (A) 82 %; RBC 2.63 m/uL (3.80-5.40); WBC 12.7 k/uL (3.8-10.6); WBC (Perox) 12.54
[2017-04-04 05:06] LABS: Ionized Calcium 5.2 mg/dL (4.5-5.3)
[2017-04-04 05:23] LABS: ALT 38 U/L (9-52); AST 38 U/L (14-36); Alkaline Phosphatase 49 U/L (38-126); Anion Gap 10 mmol/L; Blood Urea Nitrogen 16 mg/dL (7-17); Calcium 8.7 mg/dL (8.4-10.2); Carbon Dioxide 21 mmol/L (22-30); Chloride 109 mmol/L (98-107); Glucose 113 mg/dL (74-99); Magnesium 1.7 mg/dL (1.6-2.3); Non-African American GFR(MDRD) >60 (>60 ml/min/1.73 sqM); Sodium 140 mmol/L (137-145); Total Bilirubin 0.5 mg/dL (0.2-1.3); Total Protein 5.1 g/dL (6.3-8.2)
[2017-04-04] MEDS: METOCLOPRAMIDE 5 MG/ML 2 ML VIAL IVP PRN ×2 (05:49→11:21)
[2017-04-04] MEDS: IPRATROPIUM-ALBUTEROL 3 ML NEB INHALATION SCH ×4 (07:40→19:25)
--- NOTE | 2017-04-04 07:44 | XR ---
EXAMINATION TYPE: XR chest 1V portable DATE OF EXAM: 04/04/2017 6:42 AM COMPARISON: Prior chest x-ray four March 2017 HISTORY: Postop cardiac surgery TECHNIQUE: Single frontal view of the chest is obtained. FINDINGS: Right-sided central venous catheter has been removed, sheath remains in place. Left-sided chest tube, post median sternotomy change, mediastinal drains, epicardial pacing leads remain in plac e. No sizable pneumothorax or pleural effusion. There may be some basilar atelectatic change. There a re overlying cardiac leads. Heart remains enlarged. IMPRESSION: Satisfactory postoperative chest x-ray. Cardiomegaly.
[2017-04-04 08:45] LABS: Glucose,Whole Blood 114 mg/dL (75-99)
[2017-04-04] MEDS: PANTOPRAZOLE 40 MG/10 ML VIAL IVP SCH (08:49)
[2017-04-04] MEDS: MAGNESIUM SULFATE-D5W PMX 1 GM in DEXTROSE/WATER 1 100ML.BAG IVPB SCH ×2 (08:50→10:34)
[2017-04-04] MEDS: METOPROLOL TARTRATE 50 MG TAB PO SCH ×2 (09:02→20:31)
[2017-04-04] MEDS: LISINOPRIL 10 MG TAB PO SCH (09:02)
[2017-04-04] MEDS: CLOPIDOGREL 75 MG TAB PO SCH (09:02)
--- NOTE | 2017-04-04 10:25 | P.PN ---
Subjective Principal diagnosis: Coronary artery disease. POD #2 coronary artery bypass grafting 3 vessels, left internal mammary artery to left anterior descending artery, saphenous vein graft to posterior descending artery, saphenous vein graft to obtuse marginal artery. Endoscopic vein harvest right greater saphenous vein. Aortic ultrasound. Transesophageal echocardiogram. Patient currently sitting up in bed in no apparent distress. Remains on high dose esmolol drip secondary to intermittent gagging/vomitting. Unable to keep oral medication down. Objective - Vital Signs Vital signs: Vital Signs Temp 97.1 F L 04/04/17 04:00 Pulse 79 04/04/17 08:00 Resp 19 04/04/17 08:00 BP 121/85 04/04/17 08:00 Pulse Ox 97 04/04/17 06:30 Intake & Output 04/03/17 04/04/17 04/04/17 18:59 06:59 18:59 Intake Total 1090.804 933.000 46 Output Total 1535 1030 265 Balance -444.196 -97 -219 Weight 45 kg 50.6 kg Intake: IV 284 373 46 ACETAMINOPHEN IV (For NPO 100 ) 600 mg In Empty Bag 1 bag @ 240 mls/hr IVPB Q6HR [facility] Rx#:[id number] CO/CI 200 Lactated Ringers 1,000 ml 240 40 @ 20 mls/hr IV .Q24H [facility] Rx#:[id number] Pressure Bag 84 33 6 Intake, IV Titration 806.804 500.000 Amount Esmolol in Sodium 250.000 500.000 Chloride Pmx 2.5 gm In Saline 1 250ml.bag @ 25 MCG/KG/MIN 6.25 mls/hr IV .Q24H [facility] Rx#:[id number] Insulin Regular 100 unit 16.804 In Sodium Chloride 0.9% 100 ml @ Per Protocol IV .Q0M [facility] Rx#:[id number] Lactated Ringers 1,000 ml 440 @ 20 mls/hr IV .Q24H [facility] Rx#:[id number] ceFAZolin 2 gm In Sodium 100 Chloride 0.9% 100 ml @ 100 mls/hr IVPB Q8HR [facility] Rx#:[id number] Oral 60 Output: Chest Tube Drainage 170 210 90 Chest Tube Bilateral 100 110 50 Mediastinal Chest Tube Left Lateral 70 100 40 Chest Drainage 30 Left Knee 30 Urine 1275 740 175 Emesis 90 50 Other: Voiding Method Indwelling Catheter ABP, PAP, CO, CI - Last Documented Arterial Blood Pressure 140/82 Pulmonary Artery Pressure 25/13 Cardiac Output 2.8 Cardiac Index 2.0 - Constitutional General appearance: Present: cooperative, no acute distress - Respiratory Details: Lung sounds diminished jeimy. Resp even/non-labored, currently on RA with O2 sat 100%. Able to achieve 750 ml on incentive spirometry. Effective cough. Chest xray reviewed. Mediastinal CT to -20 cm wall suction, drained 50 ml serous fluid overnight, 300 ml in the last [address] to -20cm wall suction, drained 60 ml serous fluid last night, 190 ml in the last 24 hours. - Cardiovascular Details: S1/S2 present. Reg rate/rhythm. NSR on telemetry. Sternum stable. Heart hugger in place with pt demonstrating appropriate use. TEDs/SCDs in place. - Gastrointestinal Gastrointestinal Comment(s): Abd soft/NT/ND. Active BS. Not tolerating diet at this point, only tolerating sips of water. Nausea continues despite Zofran and Reglan - Genitourinary Genitourinary Comment(s): Savage present draining clear, yellow urine. Urine output 25-155 mL/h. - Musculoskeletal Musculoskeletal: Present: strength equal bilaterally - Psychiatric Psychiatric: Present: A&O x's 3, appropriate affect, intact judgment & insight - Allied health notes Allied health notes reviewed: nursing - Labs CBC & Chem 7: 04/04/17 04:30 04/04/17 04:30 Labs: Abnormal Lab Results - Last 24 Hours (Table) 04/02/17 04/02/17 04/02/17 Range/Units 08:53 10:18 11:27 WBC (3.8-10.6) k/uL RBC (3.80-5.40) m/uL Hgb (11.4-16.0) gm/dL Hct (34.0-46.0) % Plt Count (150-450) k/uL Neutrophils # (1.3-7.7) k/uL ABG pH 7.48 H (7.35-7.45) ABG pCO2 33 L 31 L 31 L (35-45) mmHg ABG pO2 383 H 248 H 278 H (83-108) mmHg ABG Total CO2 (19-24) mmol/L ABG O2 Saturation 100.0 H 99.9 H 99.9 H (94-97) % ABG Hematocrit 23 L (34.0-46.0) % ABG Potassium 6.1 H (3.4-4.5) mmol/L Chloride (98-107) mmol/L Carbon Dioxide (22-30) mmol/L Glucose (74-99) mg/dL POC Glucose (mg/dL) (75-99) mg/dL AST (14-36) U/L Total Protein (6.3-8.2) g/dL Albumin (3.5-5.0) g/dL Arterial Blood Potassium 6.1 H (3.4-4.5) mmol/L 04/02/17 04/02/17 04/02/17 Range/Units 12:17 12:59 13:57 WBC (3.8-10.6) k/uL RBC (3.80-5.40) m/uL Hgb (11.4-16.0) gm/dL Hct (34.0-46.0) % Plt Count (150-450) k/uL Neutrophils # (1.3-7.7) k/uL ABG pH 7.31 L (7.35-7.45) ABG pCO2 50 H 32 L (35-45) mmHg ABG pO2 322 H 303 H 200 H (83-108) mmHg ABG Total CO2 26 H (19-24) mmol/L ABG O2 Saturation 99.9 H 99.9 H 99.8 H (94-97) % ABG Hematocrit 26 L 23 L 29 L (34.0-46.0) % ABG Potassium 5.8 H 5.2 H (3.4-4.5) mmol/L Chloride (98-107) mmol/L Carbon Dioxide (22-30) mmol/L Glucose (74-99) mg/dL POC Glucose (mg/dL) (75-99) mg/dL AST (14-36) U/L Total Protein (6.3-8.2) g/dL Albumin (3.5-5.0) g/dL Arterial Blood Potassium 5.8 H 5.2 H (3.4-4.5) mmol/L 05/04/17 05/04/17 05/04/17 Range/Units 09:07 10:02 11:00 WBC (3.8-10.6) k/uL RBC (3.80-5.40) m/uL Hgb (11.4-16.0) gm/dL Hct (34.0-46.0) % Plt Count (150-450) k/uL Neutrophils # (1.3-7.7) k/uL ABG pH (7.35-7.45) ABG pCO2 (35-45) mmHg ABG pO2 (83-108) mmHg ABG Total CO2 (19-24) mmol/L ABG O2 Saturation (94-97) % ABG Hematocrit (34.0-46.0) % ABG Potassium (3.4-4.5) mmol/L Chloride (98-107) mmol/L Carbon Dioxide (22-30) mmol/L Glucose (74-99) mg/dL POC Glucose (mg/dL) 130 H 130 H 126 H (75-99) mg/dL AST (14-36) U/L Total Protein (6.3-8.2) g/dL Albumin (3.5-5.0) g/dL Arterial Blood Potassium (3.4-4.5) mmol/L 04/03/17 04/03/17 04/03/17 Range/Units 12:19 13:01 14:16 WBC (3.8-10.6) k/uL RBC (3.80-5.40) m/uL Hgb (11.4-16.0) gm/dL Hct (34.0-46.0) % Plt Count (150-450) k/uL Neutrophils # (1.3-7.7) k/uL ABG pH (7.35-7.45) ABG pCO2 (35-45) mmHg ABG pO2 (83-108) mmHg ABG Total CO2 (19-24) mmol/L ABG O2 Saturation (94-97) % ABG Hematocrit (34.0-46.0) % ABG Potassium (3.4-4.5) mmol/L Chloride (98-107) mmol/L Carbon Dioxide (22-30) mmol/L Glucose (74-99) mg/dL POC Glucose (mg/dL) 124 H 119 H 109 H (75-99) mg/dL AST (14-36) U/L Total Protein (6.3-8.2) g/dL Albumin (3.5-5.0) g/dL Arterial Blood Potassium (3.4-4.5) mmol/L 04/03/17 04/03/17 04/03/17 Range/Units 15:05 16:10 18:06 WBC (3.8-10.6) k/uL RBC (3.80-5.40) m/uL Hgb (11.4-16.0) gm/dL Hct (34.0-46.0) % Plt Count (150-450) k/uL Neutrophils # (1.3-7.7) k/uL ABG pH (7.35-7.45) ABG pCO2 (35-45) mmHg ABG pO2 (83-108) mmHg ABG Total CO2 (19-24) mmol/L ABG O2 Saturation (94-97) % ABG Hematocrit (34.0-46.0) % ABG Potassium (3.4-4.5) mmol/L Chloride (98-107) mmol/L Carbon Dioxide (22-30) mmol/L Glucose (74-99) mg/dL POC Glucose (mg/dL) 114 H 110 H 117 H (75-99) mg/dL AST (14-36) U/L Total Protein (6.3-8.2) g/dL Albumin (3.5-5.0) g/dL Arterial Blood Potassium (3.4-4.5) mmol/L 04/03/17 04/03/17 04/03/17 Range/Units 20:17 21:28 22:10 WBC (3.8-10.6) k/uL RBC (3.80-5.40) m/uL Hgb (11.4-16.0) gm/dL Hct (34.0-46.0) % Plt Count (150-450) k/uL Neutrophils # (1.3-7.7) k/uL ABG pH (7.35-7.45) ABG pCO2 (35-45) mmHg ABG pO2 (83-108) mmHg ABG Total CO2 (19-24) mmol/L ABG O2 Saturation (94-97) % ABG Hematocrit (34.0-46.0) % ABG Potassium (3.4-4.5) mmol/L Chloride (98-107) mmol/L Carbon Dioxide (22-30) mmol/L Glucose (74-99) mg/dL POC Glucose (mg/dL) 115 H 112 H 109 H (75-99) mg/dL AST (14-36) U/L Total Protein (6.3-8.2) g/dL Albumin (3.5-5.0) g/dL Arterial Blood Potassium (3.4-4.5) mmol/L 04/04/17 04/04/17 04/04/17 Range/Units 00:13 02:18 04:23 WBC (3.8-10.6) k/uL RBC (3.80-5.40) m/uL Hgb (11.4-16.0) gm/dL Hct (34.0-46.0) % Plt Count (150-450) k/uL Neutrophils # (1.3-7.7) k/uL ABG pH (7.35-7.45) ABG pCO2 (35-45) mmHg ABG pO2 (83-108) mmHg ABG Total CO2 (19-24) mmol/L ABG O2 Saturation (94-97) % ABG Hematocrit (34.0-46.0) % ABG Potassium (3.4-4.5) mmol/L Chloride (98-107) mmol/L Carbon Dioxide (22-30) mmol/L Glucose (74-99) mg/dL POC Glucose (mg/dL) 113 H 111 H 118 H (75-99) mg/dL AST (14-36) U/L Total Protein (6.3-8.2) g/dL Albumin (3.5-5.0) g/dL Arterial Blood Potassium (3.4-4.5) mmol/L 04/04/17 04/04/17 04/04/17 Range/Units 04:30 04:30 08:42 WBC 12.7 H (3.8-10.6) k/uL RBC 2.63 L (3.80-5.40) m/uL Hgb 7.8 L (11.4-16.0) gm/dL Hct 24.8 L (34.0-46.0) % Plt Count 145 L (150-450) k/uL Neutrophils # 10.4 H (1.3-7.7) k/uL ABG pH (7.35-7.45) ABG pCO2 (35-45) mmHg ABG pO2 (83-108) mmHg ABG Total CO2 (19-24) mmol/L ABG O2 Saturation (94-97) % ABG Hematocrit (34.0-46.0) % ABG Potassium (3.4-4.5) mmol/L Chloride 109 H (98-107) mmol/L Carbon Dioxide 21 L (22-30) mmol/L Glucose 113 H (74-99) mg/dL POC Glucose (mg/dL) 114 H (75-99) mg/dL AST 38 H (14-36) U/L Total Protein 5.1 L (6.3-8.2) g/dL Albumin 3.2 L (3.5-5.0) g/dL Arterial Blood Potassium (3.4-4.5) mmol/L - Imaging and Cardiology Chest x-ray: report reviewed, image reviewed Assessment and Plan (1) History of coronary artery stent placement Status: Acute (2) Hypertension Status: Acute (3) Hyperlipidemia Status: Acute (4) Tobacco abuse Status: Acute (5) Coronary artery disease Status: Acute Plan: 1. Continue aspirin, statin, Plavix, lopressor. Will increase lisinopril to 10 mg BID. Wean esmolol gtt. 2. Continue Toradol, will add Ultram for pain control. 3. Amylase/lipase ordered. Results pending. If no relief from nausea and if unable to keep down oral meds, will place dobhoff tube. 4. Will DC mediastinal CT. 5. Encourage incentive spirometry use. 6. Increase activity, out of bed to chair, ambulate in room. Physical therapy to follow. 7. Will monitor vital signs, chest tube output, urine output, daily labs and x- rays. 8. Insulin drip, diabetic management per internal medicine service. 9. GI /DVT prophylaxis. 10. More recommendations as patient progresses. Time with Patient: Greater than 30
[2017-04-04] MEDS: ASPIRIN 325 MG TAB PO SCH (10:34)
[2017-04-04] MEDS: ATORVASTATIN 40 MG TAB PO SCH (10:34)
--- NOTE | 2017-04-04 10:44 | P.PN ---
Progress Note - Text This is a pleasant 47-year-old female patient who is a patient of Dr. VC Tripp with a known history of coronary artery disease, hypertension, and dyslipidemia, was admitted to the hospital yesterday and underwent CABG. The patient is known to have coronary artery disease with previous LAD stenting and circumflex stenting. She was experiencing chest discomfort consistent with angina. She underwent a heart catheterization in January and that showed severe triple-vessel CAD. She underwent coronary artery bypass grafting yesterday with LIM to LAD, SVG to diagonal, SVG to PDA. She continues to be in a sinus rhythm. She is slightly hypertensive as well. She continues to be on dual antiplatelet therapy as well as metoprolol and lisinopril.
[2017-04-04 10:52] LABS: Amylase 72 U/L (30-110)
[2017-04-04] MEDS: traMADol 50 MG TAB PO PRN (11:23)
[2017-04-04] MEDS ORDERED: LISINOPRIL 10 MG TAB PO STA (11:59)
[2017-04-04 12:43] LABS: Glucose,Whole Blood 123 mg/dL (75-99)
[2017-04-04] MEDS: INSULIN LISPRO (humaLOG) 300 UNIT/3 ML VIAL SQ SCH ×3 (12:44→20:41)
--- NOTE | 2017-04-04 13:23 | P.PN ---
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 She has a history of coronary artery disease with previous stent placement to the LAD diagonal and circumflex coronary arteries back in 2011. She had been having recurrent class III angina that was relieved with nitroglycerin. She presented here on 03/24/2017 for an elective cardiac catheterization which revealed diffuse triple-vessel disease with multiple lesions in the LAD. There was a tight lesion in the circumflex and the right coronary artery was totally occluded. She was recommended coronary artery bypass grafting. She presented here today for an elective surgery which was performed by Dr. Morales. He performed a LMI to the LAD, saphenous pain graft to the OM and saphenous vein graft to the PDA. She is seen immediately postoperative in the intensive care unit. She is currently sedated on propofol 50 mcg/kg/m. She is on nitroglycerin at 20 mg/m and Cleviprex at 2 mg per hour. His IV is lactated Ringer's at 50 MLS per hour. Her current vent settings are SIMV mode of 12, tidal volume 360, FiO2 of 80% and a PEEP of 5. Blood gases revealed a PaO2 of 175, pCO2 21 and a pH of 7.56. 6 reveal some left lower lobe atelectasis. There is a split mediastinal chest tubes and one left pleural chest tube. Nasogastric tube is in place. No sizable pneumothorax or effusion. Her hemoglobin is 7.3. Patient was reevaluated today on 04/03/2017. She was extubated uneventfully last night. Her ABG was reflecting a picture of respiratory alkalosis, however this was felt to be and at her patient was later switched to an assist control mode of mechanical ventilation, her tidal volumes were adjusted, and follow-up ABG after all this adjustment showed normal ABG. Again the patient was extubated overnight, and she is doing well except for intermittent episodes of nausea and vomiting, patient is receiving Zofran. Labs from today were reviewed, hemoglobin is 7.6. ABG prior to extubation showed a pO2 of 113 pCO2 of 34 pH of 7.40. Chest x-ray showed mostly postoperative changes, no evidence of pneumonia and no evidence of congestive heart failure. Patient was reevaluated on 04/04/2017, continues to do quite well, relatively asymptomatic, blood pressure is slightly elevated. Chest x-ray is reassuring. Hemoglobin is 7.8, WBC count is 12.7, basic metabolic profile is normal. Patient is in sinus rhythm. Objective - Vital Signs Vital signs: Vital Signs Temp 97.5 F L 04/04/17 12:00 Pulse 80 04/04/17 13:00 Resp 18 04/04/17 13:00 BP 164/102 04/04/17 13:00 Pulse Ox 98 04/04/17 13:00 Intake & Output 04/03/17 04/04/17 04/04/17 18:59 06:59 18:59 Intake Total 1090.804 933.000 517.259 Output Total 1535 1030 815 Balance -444.196 -97 -297.741 Weight 45 kg 50.6 kg 50.6 kg Intake: IV 284 373 161 ACETAMINOPHEN IV (For NPO 100 ) 600 mg In Empty Bag 1 bag @ 240 mls/hr IVPB Q6HR [facility] Rx#:[id number] CO/CI 200 Lactated Ringers 1,000 ml 240 140 @ 20 mls/hr IV .Q24H [facility] Rx#:[id number] Pressure Bag 84 33 21 Intake, IV Titration 806.804 500.000 356.259 Amount Esmolol in Sodium 250.000 500.000 256.259 Chloride Pmx 2.5 gm In Saline 1 250ml.bag @ 25 MCG/KG/MIN 6.25 mls/hr IV .Q24H [facility] Rx#:[id number] Insulin Regular 100 unit 16.804 In Sodium Chloride 0.9% 100 ml @ Per Protocol IV .Q0M [facility] Rx#:[id number] Lactated Ringers 1,000 ml 440 @ 20 mls/hr IV .Q24H [facility] Rx#:[id number] Magnesium Sulfate-D5w Pmx 100 1 gm In Dextrose/Water 1 100ml.bag @ 100 mls/hr IVPB Q1H [facility] Rx#: [id number] ceFAZolin 2 gm In Sodium 100 Chloride 0.9% 100 ml @ 100 mls/hr IVPB Q8HR [facility] Rx#:[id number] Oral 60 Output: Chest Tube Drainage 170 210 150 Chest Tube Bilateral 100 110 80 Mediastinal Chest Tube Left Lateral 70 100 70 Chest Drainage 30 Left Knee 30 Urine 1275 740 665 Emesis 90 50 Other: Voiding Method Indwelling Catheter Indwelling Catheter ABP, PAP, CO, CI - Last Documented Arterial Blood Pressure 182/90 Pulmonary Artery Pressure 25/13 Cardiac Output 2.8 Cardiac Index 2.0 - Exam Gen.: Revealed a 47-year-old female, in no distress, on nasal cannula, HEAD: Normocephalic. EYES: Within normal. NOSE: Clear with pink turbinates. THROAT: Clear. NECK: No masses, no JVD. CHEST: Dressing dry and intact. Splint mediastinal and left pleural chest tubes in place. Pacer wires in place. LUNGS: Equal air entry with crackles in the posterior bases more so on the left. CVS: S1 and S2 normal with no audible murmurs, regular rhythm. ABDOMEN: No hepatosplenomegaly, no active bowel sounds. SPINE: No scoliosis or deformity SKIN: No rashes Extremities: There are bilateral Yury wraps to lower extremities. CAROL drain to the left lower extremity. Peripheral pulses are intact. - Labs CBC & Chem 7: 04/04/17 04:30 04/04/17 04:30 Labs: Abnormal Lab Results - Last 24 Hours (Table) 04/03/17 04/03/17 04/03/17 Range/Units 14:16 15:05 16:10 WBC (3.8-10.6) k/uL RBC (3.80-5.40) m/uL Hgb (11.4-16.0) gm/dL Hct (34.0-46.0) % Plt Count (150-450) k/uL Neutrophils # (1.3-7.7) k/uL Chloride (98-107) mmol/L Carbon Dioxide (22-30) mmol/L Glucose (74-99) mg/dL POC Glucose (mg/dL) 109 H 114 H 110 H (75-99) mg/dL AST (14-36) U/L Total Protein (6.3-8.2) g/dL Albumin (3.5-5.0) g/dL 04/03/17 04/03/17 04/03/17 Range/Units 18:06 20:17 21:28 WBC (3.8-10.6) k/uL RBC (3.80-5.40) m/uL Hgb (11.4-16.0) gm/dL Hct (34.0-46.0) % Plt Count (150-450) k/uL Neutrophils # (1.3-7.7) k/uL Chloride (98-107) mmol/L Carbon Dioxide (22-30) mmol/L Glucose (74-99) mg/dL POC Glucose (mg/dL) 117 H 115 H 112 H (75-99) mg/dL AST (14-36) U/L Total Protein (6.3-8.2) g/dL Albumin (3.5-5.0) g/dL 04/03/17 04/04/17 04/04/17 Range/Units 22:10 00:13 02:18 WBC (3.8-10.6) k/uL RBC (3.80-5.40) m/uL Hgb (11.4-16.0) gm/dL Hct (34.0-46.0) % Plt Count (150-450) k/uL Neutrophils # (1.3-7.7) k/uL Chloride (98-107) mmol/L Carbon Dioxide (22-30) mmol/L Glucose (74-99) mg/dL POC Glucose (mg/dL) 109 H 113 H 111 H (75-99) mg/dL AST (14-36) U/L Total Protein (6.3-8.2) g/dL Albumin (3.5-5.0) g/dL 04/04/17 04/04/17 04/04/17 Range/Units 04:23 04:30 04:30 WBC 12.7 H (3.8-10.6) k/uL RBC 2.63 L (3.80-5.40) m/uL Hgb 7.8 L (11.4-16.0) gm/dL Hct 24.8 L (34.0-46.0) % Plt Count 145 L (150-450) k/uL Neutrophils # 10.4 H (1.3-7.7) k/uL Chloride 109 H (98-107) mmol/L Carbon Dioxide 21 L (22-30) mmol/L Glucose 113 H (74-99) mg/dL POC Glucose (mg/dL) 118 H (75-99) mg/dL AST 38 H (14-36) U/L Total Protein 5.1 L (6.3-8.2) g/dL Albumin 3.2 L (3.5-5.0) g/dL 04/04/17 04/04/17 Range/Units 08:42 12:42 WBC (3.8-10.6) k/uL RBC (3.80-5.40) m/uL Hgb (11.4-16.0) gm/dL Hct (34.0-46.0) % Plt Count (150-450) k/uL Neutrophils # (1.3-7.7) k/uL Chloride (98-107) mmol/L Carbon Dioxide (22-30) mmol/L Glucose (74-99) mg/dL POC Glucose (mg/dL) 114 H 123 H (75-99) mg/dL AST (14-36) U/L Total Protein (6.3-8.2) g/dL Albumin (3.5-5.0) g/dL Assessment and Plan Plan: #1 Severe diffuse triple-vessel coronary artery disease status post coronary artery bypass grafting utilizing a LIM to the LAD, saphenous vein graft to the obtuse marginal branch, saphenous vein graft to the posterior descending artery. Operative day #2 #2 Coronary artery disease with previous stent placements 3 to the LAD, diagonal and circumflex coronary arteries. #3Hyperlipidemia. #4Hypertension. #5 Chronic and ongoing tobacco dependence. Recommendation: Continue present treatment plan including incentive spirometry, bronchodilators, and early ambulation. Time with Patient: Less than 30
[2017-04-04] MEDS: CLEVIDIPINE BUTYRATE 25 MG in EMPTY BAG 1 BAG IV SCH (14:04)
[2017-04-04 18:07] LABS: Glucose,Whole Blood 120 mg/dL (75-99)
[2017-04-04] MEDS: LACTATED RINGERS 1,000 ML IV SCH (18:13)
[2017-04-04] MEDS: SENNOSIDES-DOCUSATE SODIUM 1 EACH TAB PO SCH (20:30)
[2017-04-04 21:00] LABS: Glucose,Whole Blood 119 mg/dL (75-99)
[2017-04-05] MEDS ORDERED: hydrALAZINE HCL 20 MG/ML 1 ML VIAL IVP PRN (00:04)
[2017-04-05] MEDS ORDERED: LISINOPRIL 10 MG TAB PO STA (00:04)
[2017-04-05] MEDS: HEPARIN SODIUM,PORCINE 5,000 UNIT/ML 1 ML VIAL SQ SCH ×3 (00:22→15:30)
[2017-04-05] MEDS: KETOROLAC 30 MG/ML 1 ML VIAL IVP SCH ×4 (00:29→17:13)
[2017-04-05] MEDS: INSULIN LISPRO (humaLOG) 300 UNIT/3 ML VIAL SQ SCH ×4 (07:13→21:03)
[2017-04-05 07:14] LABS: Glucose,Whole Blood 110 mg/dL (75-99)
[2017-04-05 07:32] LABS: INR 1.1 (<1.1); Prothrombin Time 10.9 sec (9.0-12.0)
[2017-04-05 07:44] LABS: ALT 32 U/L (9-52); AST 35 U/L (14-36); Alkaline Phosphatase 56 U/L (38-126); Anion Gap 9 mmol/L; Blood Urea Nitrogen 14 mg/dL (7-17); Calcium 9.1 mg/dL (8.4-10.2); Carbon Dioxide 22 mmol/L (22-30); Chloride 109 mmol/L (98-107); Glucose 110 mg/dL (74-99); Non-African American GFR(MDRD) >60 (>60 ml/min/1.73 sqM); Potassium 3.6 mmol/L (3.5-5.1); Sodium 140 mmol/L (137-145); Total Bilirubin 0.6 mg/dL (0.2-1.3)
[2017-04-05 07:52] LABS: Basophils % (A) 0 %; CH 29.9; CHCM 32.1; Eosinophils # (A) 0.1 k/uL (0-0.7); Eosinophils % (A) 1 %; HCT 27.5 % (34.0-46.0); HDW 2.44; HGB 8.7 gm/dL (11.4-16.0); Luc # (Auto) 0.18; Luc % (Auto) 2; Lymphocytes # (A) 1.2 k/uL (1.0-4.8); Lymphocytes % (A) 11 %; MCH 29.6 pg (25.0-35.0); MCHC 31.7 g/dL (31.0-37.0); MCV 93.5 fL (80.0-100.0); Monocytes # (A) 0.7 k/uL (0-1.0); Monocytes % (A) 7 %; Neutrophils # (A) 8.8 k/uL (1.3-7.7); Neutrophils % (A) 80 %; RBC 2.94 m/uL (3.80-5.40); RDW 13.9 % (11.5-15.5); WBC 10.9 k/uL (3.8-10.6); WBC (Perox) 11.04
--- NOTE | 2017-04-05 08:15 | XR ---
EXAMINATION TYPE: XR chest 1V portable DATE OF EXAM: 04/05/2017 6:37 AM COMPARISON: Prior chest x-ray fifth March 2017 HISTORY: Postop cardiac surgery, chest tube TECHNIQUE: Single frontal view of the chest is obtained. FINDINGS: Left-sided chest tube is in place, mediastinal drains have been removed. Epicardial pacing leads are present, patient is post median sternotomy. No sizable pneumothorax or pleural effusion. H eart remains enlarged. Pulmonary vascularity and sukumar are stable. Right jugular central venous sheath has been removed. There is a spinal curvature. There are overlying cardiac leads. IMPRESSION: Interval sternotomy tube removal
[2017-04-05] MEDS: ASPIRIN 325 MG TAB PO SCH (08:28)
[2017-04-05] MEDS: ATORVASTATIN 40 MG TAB PO SCH (08:28)
[2017-04-05] MEDS: LISINOPRIL 20 MG TAB PO SCH (08:28)
[2017-04-05] MEDS: CLOPIDOGREL 75 MG TAB PO SCH (08:28)
[2017-04-05] MEDS: PANTOPRAZOLE 40 MG TABLET PO SCH (08:29)
[2017-04-05] MEDS: IPRATROPIUM-ALBUTEROL 3 ML NEB INHALATION SCH ×4 (08:40→19:58)
[2017-04-05] MEDS: METOPROLOL TARTRATE 50 MG TAB PO SCH ×2 (08:40→20:37)
--- NOTE | 2017-04-05 10:24 | P.PN ---
Subjective Principal diagnosis: Status post CABG This is a pleasant 47-year-old female patient who is a patient of Dr. VC Tripp with a known history of coronary artery disease, hypertension, and dyslipidemia, was admitted to the hospital yesterday and underwent CABG. The patient is known to have coronary artery disease with previous LAD stenting and circumflex stenting. She was experiencing chest discomfort consistent with angina. She underwent a heart catheterization in January and that showed severe triple-vessel CAD. She underwent coronary artery bypass grafting yesterday with LIM to LAD, SVG to diagonal, SVG to PDA. She has been tachycardic and hypertensive. The dose of metoprolol has increased to 75 mg by mouth twice a day earlier by the surgical team. Beside that she continues to be on dual antiplatelet therapy as well as statin. Objective - Vital Signs Vital signs: Vital Signs Temp 98 F 04/05/17 07:30 Pulse 109 H 04/05/17 08:00 Resp 20 04/05/17 08:00 BP 165/100 04/05/17 08:00 Pulse Ox 98 04/05/17 08:00 Intake & Output 04/04/17 04/05/17 04/05/17 18:59 06:59 18:59 Intake Total 708.617 120 30 Output Total 1455 920 80 Balance -746.383 -800 -50 Weight 50.6 kg 50.3 kg Intake: IV 247 120 30 Lactated Ringers 1,000 ml 220 120 30 @ 20 mls/hr IV .Q24H [facility] Rx#:[id number] Pressure Bag 27 Intake, IV Titration 461.617 Amount Esmolol in Sodium 361.617 Chloride Pmx 2.5 gm In Saline 1 250ml.bag @ 25 MCG/KG/MIN 6.25 mls/hr IV .Q24H [facility] Rx#:[id number] Magnesium Sulfate-D5w Pmx 100 1 gm In Dextrose/Water 1 100ml.bag @ 100 mls/hr IVPB Q1H [facility] Rx#: [id number] Output: Chest Tube Drainage 160 140 80 Chest Tube Bilateral 80 Mediastinal Chest Tube Left Lateral 80 140 80 Chest Drainage 50 30 Left Knee 50 30 Urine 1245 750 0 Other: Voiding Method Indwelling Catheter Indwelling Catheter # Voids 1 ABP, PAP, CO, CI - Last Documented Arterial Blood Pressure 172/78 Pulmonary Artery Pressure 25/13 Cardiac Output 2.8 Cardiac Index 2.0 - Constitutional General appearance: Present: no acute distress - Respiratory Respiratory: bilateral: diminished - Cardiovascular Rhythm: regular - Labs CBC & Chem 7: 04/05/17 07:15 04/05/17 07:15 Labs: Abnormal Lab Results - Last 24 Hours (Table) 04/04/17 04/04/17 04/04/17 Range/Units 12:42 18:04 20:40 WBC (3.8-10.6) k/uL RBC (3.80-5.40) m/uL Hgb (11.4-16.0) gm/dL Hct (34.0-46.0) % Neutrophils # (1.3-7.7) k/uL Chloride (98-107) mmol/L Glucose (74-99) mg/dL POC Glucose (mg/dL) 123 H 120 H 119 H (75-99) mg/dL Total Protein (6.3-8.2) g/dL 04/05/17 04/05/17 04/05/17 Range/Units 07:12 07:15 07:15 WBC 10.9 H (3.8-10.6) k/uL RBC 2.94 L (3.80-5.40) m/uL Hgb 8.7 L (11.4-16.0) gm/dL Hct 27.5 L (34.0-46.0) % Neutrophils # 8.8 H (1.3-7.7) k/uL Chloride 109 H (98-107) mmol/L Glucose 110 H (74-99) mg/dL POC Glucose (mg/dL) 110 H (75-99) mg/dL Total Protein 6.0 L (6.3-8.2) g/dL Assessment and Plan Plan: Assessment #1 CAD and status post CABG as described above #2 systemic hypertension #3 dyslipidemia Plan #1 continue the current medical treatment was dual antiplatelet therapy and statin #2 the dose of metoprolol has increased earlier today #3 continue monitor the heart rhythm and the patient has been maintaining normal sinus mechanism #4 follow-up with the patient
[2017-04-05] MEDS ORDERED: POTASSIUM CHLORIDE ER 20 MEQ TAB.ER PO SCH ×2 (11:00→17:00)
--- NOTE | 2017-04-05 11:01 | P.PN ---
Addendum entered and electronically signed by Calvin Barakat RNFA 04/05/17 12: 19: Left pleural chest tube removed without incident, 4 x 4 dressing placed with Vaseline impregnated gauze and secured with tape. Original Note: <Calvin Barakat - Last Filed: 04/05/17 11:00> Progress Note - Text CV Surgery Nursing Principal diagnosis: Coronary artery disease. POD #3 coronary artery bypass grafting 3 vessels, left internal mammary artery to left anterior descending artery, saphenous vein graft to posterior descending artery, saphenous vein graft to obtuse marginal artery. Endoscopic vein harvest right greater saphenous vein. Intraoperative Epi-aortic ultrasound and transesophageal echocardiogram. Patient awake and alert, no distress noted, no specific complaints. She denies further complaints of nausea. She is sitting up to the bedside chair at this time. Vital Signs: Afebrile Vital Signs - 24 hr 04/04/17 04/04/17 04/04/17 09:00 10:00 11:00 Temperature Pulse Rate 80 77 76 Pulse Rate [ 79 78 78 [employer] ] Respiratory 18 17 Rate Blood Pressure 121/85 142/94 148/93 Blood Pressure 142/94 148/93 136/84 [Left Arm Sitting] O2 Sat by Pulse 97 97 99 Oximetry 04/04/17 04/04/17 04/04/17 12:00 13:00 14:00 Temperature 97.5 F L Pulse Rate 77 79 76 Pulse Rate [ 80 80 [employer] ] Respiratory 18 18 Rate Blood Pressure 136/84 152/102 157/106 Blood Pressure 156/98 164/102 [Left Arm Sitting] O2 Sat by Pulse 98 96 96 Oximetry 04/04/17 04/04/17 04/04/17 15:00 15:30 16:00 Temperature Pulse Rate 85 85 85 Pulse Rate [ 80 [employer] ] Respiratory 16 20 Rate Blood Pressure 117/78 124/80 137/89 Blood Pressure [Left Arm Sitting] O2 Sat by Pulse 98 98 98 Oximetry 04/04/17 04/04/17 04/04/17 16:30 17:00 17:30 Temperature Pulse Rate 92 87 89 Pulse Rate [ [employer] ] Respiratory 18 20 Rate Blood Pressure 150/93 135/86 137/85 Blood Pressure [Left Arm Sitting] O2 Sat by Pulse 99 98 98 Oximetry 04/04/17 04/04/17 04/04/17 18:00 18:30 19:00 Temperature Pulse Rate 89 89 92 Pulse Rate [ [employer] ] Respiratory Rate Blood Pressure 134/81 126/84 126/84 Blood Pressure [Left Arm Sitting] O2 Sat by Pulse 98 97 98 Oximetry 04/04/17 04/04/17 04/04/17 19:30 20:00 20:30 Temperature 97.7 F Pulse Rate 92 93 106 H Pulse Rate [ 80 [employer] ] Respiratory Rate Blood Pressure 176/98 148/97 161/95 Blood Pressure [Left Arm Sitting] O2 Sat by Pulse 97 98 98 Oximetry 04/04/17 04/04/17 04/04/17 21:00 22:00 22:16 Temperature Pulse Rate 89 88 87 Pulse Rate [ [employer] ] Respiratory 21 Rate Blood Pressure 161/95 157/95 183/107 Blood Pressure [Left Arm Sitting] O2 Sat by Pulse 98 96 99 Oximetry 04/04/17 04/04/17 04/04/17 22:30 23:00 23:13 Temperature Pulse Rate 91 85 Pulse Rate [ 80 [employer] ] Respiratory 25 H 28 H Rate Blood Pressure 146/100 Blood Pressure [Left Arm Sitting] O2 Sat by Pulse 97 100 Oximetry 04/04/17 04/05/17 04/05/17 23:30 00:00 00:30 Temperature 97.9 F Pulse Rate 87 85 86 Pulse Rate [ [employer] ] Respiratory 21 19 22 Rate Blood Pressure 172/106 171/109 151/96 Blood Pressure [Left Arm Sitting] O2 Sat by Pulse 100 100 100 Oximetry 04/05/17 04/05/17 04/05/17 01:00 01:30 02:00 Temperature Pulse Rate 95 91 90 Pulse Rate [ [employer] ] Respiratory 25 H 21 19 Rate Blood Pressure 151/96 141/95 143/95 Blood Pressure [Left Arm Sitting] O2 Sat by Pulse 99 99 100 Oximetry 04/05/17 04/05/17 04/05/17 02:30 03:00 03:30 Temperature Pulse Rate 90 102 H 96 Pulse Rate [ [employer] ] Respiratory 19 25 H 22 Rate Blood Pressure 144/94 148/98 148/98 Blood Pressure [Left Arm Sitting] O2 Sat by Pulse 100 99 100 Oximetry 04/05/17 04/05/17 04/05/17 04:00 04:30 05:00 Temperature Pulse Rate 108 H 94 108 H Pulse Rate [ [employer] ] Respiratory 35 H 18 18 Rate Blood Pressure 142/93 155/96 153/97 Blood Pressure [Left Arm Sitting] O2 Sat by Pulse 99 91 L 98 Oximetry 04/05/17 04/05/17 04/05/17 05:30 06:00 06:30 Temperature Pulse Rate 107 H 106 H 104 H Pulse Rate [ [employer] ] Respiratory 17 25 H 20 Rate Blood Pressure 153/97 155/98 Blood Pressure [Left Arm Sitting] O2 Sat by Pulse 99 100 95 Oximetry 04/05/17 04/05/17 04/05/17 07:00 07:30 08:00 Temperature 98 F Pulse Rate 100 117 H 109 H Pulse Rate [ [employer] ] Respiratory 20 18 20 Rate Blood Pressure 163/95 163/101 165/100 Blood Pressure [Left Arm Sitting] O2 Sat by Pulse 98 94 L 98 Oximetry Labs: Short CBC 04/05/17 Range/Units 07:15 WBC 10.9 H (3.8-10.6) k/uL Hgb 8.7 L (11.4-16.0) gm/dL Hct 27.5 L (34.0-46.0) % Plt Count 177 (150-450) k/uL Neutrophils # 8.8 H (1.3-7.7) k/uL BMP 04/05/17 07:15 Sodium 140 Potassium 3.6 Chloride 109 H Carbon Dioxide 22 BUN 14 Creatinine 0.53 Glucose 110 H Calcium 9.1 Liver Function 04/05/17 Range/Units 07:15 Total Bilirubin 0.6 (0.2-1.3) mg/dL AST 35 (14-36) U/L ALT 32 (9-52) U/L Alkaline Phosphatase 56 (38-126) U/L Albumin 3.8 (3.5-5.0) g/dL ABG ABG pH 7.40 (7.35-7.45) 04/03/17 03:08 ABG pCO2 34 mmHg (35-45) L 04/03/17 03:08 ABG pO2 113 mmHg (83-108) H 04/03/17 03:08 ABG O2 Saturation 99.0 % (94-97) H 04/03/17 03:08 PT/INR, D-dimer PT 10.9 sec (9.0-12.0) 04/05/17 07:15 INR 1.1 (<1.1) 04/05/17 07:15 IV Fluids: Lactated Ringer's at 10 mL per hour. Lungs: Essentially clear throughout, diminished bilateral bases. Respirations are symmetrical and unlabored. O2 sat: 98% on room air. I/S: 750 mL, reviewed with the patient important of using her incentive spirometry every hour while awake. The patient did give a good return demonstration on her incentive spirometry. Heart: S1S2, regular rhythm with tachycardic rate. Negative for S3, gallop or murmur. Bedside telemetry showing sinus tachycardia with occasional PVC heart rate 116. Sternum stable, chest incision clean with sternal dressing clean and dry. Heart hugger in place, patient demonstrated proper use of her heart hugger. Left leg incisions clean dry and well approximated. No drainage noted. CAROL drain in place 30 mL output in the last 8 hours, 80 mL output in the last 24 hours. Knee-high FARZANA hose and sequential compression devices in place to bilateral lower extremities. Abdomen: Soft, Positive bowel sounds present in all 4 quadrants. Patient denies further complaints of nausea this time. CBGs: 110-123 mg/dL in the last 24 hours. U/O: Adequate, 480 mL output in the last 8 hours. Chest Tubes: Left pleural chest tube without air leak, remains to low continuous wall suction. Draining thin serosanguineous drainage, 90 mL output in the last 8 hours, 220 mL output in the last 24 hours. 24 hr Total: Intake & Output 04/03/17 04/04/17 04/05/17 04/06/17 06:59 06:59 06:59 06:59 Intake Total 5185.309 5182.804 828.617 30 Output Total 4581 2565 2375 80 Balance -3110.949 -541.196 -1546.383 -50 Weight 45 kg 50.6 kg 50.3 kg Active Medications Albuterol/Ipratropium (Duoneb 0.5 Mg-3 Mg/3 Ml Soln) 3 ml INHALATION RT-Q2H PRN PRN Reason: Shortness Of Breath Or Wheezing Albuterol/Ipratropium (Duoneb 0.5 Mg-3 Mg/3 Ml Soln) 3 ml INHALATION RT-QID [facility] Last Admin: 04/04/17 19:25 Dose: Not Given Aspirin (Aspirin) 325 mg PO DAILY [facility] Last Admin: 04/05/17 08:28 Dose: 325 mg Atorvastatin Calcium (Lipitor) 40 mg PO DAILY [facility] Last Admin: 04/05/17 08:28 Dose: 40 mg Benzocaine/Menthol (Cepacol Lozenge) 1 each MUCOUS MEM Q2H PRN PRN Reason: Sore Throat Bisacodyl (Dulcolax) 10 mg RECTAL DAILY PRN PRN Reason: Constipation Clopidogrel Bisulfate (Plavix) 75 mg PO DAILY [facility] Last Admin: 04/05/17 08:28 Dose: 75 mg Heparin Sodium (Porcine) (Heparin) 5,000 unit SQ Q8HR [facility] Last Admin: 04/05/17 08:19 Dose: 5,000 unit Hydralazine HCl (Apresoline) 10 mg IVP Q6HR PRN PRN Reason: Blood Pressure - High Last Admin: 04/05/17 00:22 Dose: 10 mg Clevidipine 25 mg/ IV Solution 50 mls @ 2 mls/hr IV .Q24H [facility]; 1 MG/HR PRN Reason: Protocol Last Admin: 04/04/17 14:04 Dose: Not Given Lactated Ringer's (Lactated Ringers) 1,000 mls @ 20 mls/hr IV .Q24H [facility] Last Admin: 04/04/17 18:13 Dose: 20 mls/hr Insulin Human Lispro (Humalog) 0 unit SQ ACHS [facility] PRN Reason: Protocol Last Admin: 04/05/17 07:13 Dose: Not Given Ketorolac Tromethamine (Toradol) 15 mg IVP Q6HR [facility] Stop: 04/07/17 08:39 Last Admin: 04/05/17 05:25 Dose: 15 mg Lisinopril (Zestril) 20 mg PO DAILY [facility] Last Admin: 04/05/17 08:28 Dose: 20 mg Magnesium Hydroxide (Milk Of Magnesia) 2,400 mg PO BID PRN PRN Reason: Constipation Metoclopramide HCl (Reglan) 10 mg IVP Q4H PRN PRN Reason: Nausea And Vomiting Last Admin: 04/04/17 11:21 Dose: 10 mg Metoprolol Tartrate (Lopressor) 75 mg PO BID [facility] Miscellaneous Information (Magnesium Per Protocol) 1 each MISCELLANE DAILY PRN ; Protocol PRN Reason: Per Protocol Miscellaneous Information (Phosphorus Per Protocol) 1 each MISCELLANE DAILY PRN ; Protocol PRN Reason: Per Protocol Miscellaneous Information (Potassium Per Protocol) 1 each MISCELLANE DAILY PRN ; Protocol PRN Reason: Per Protocol Ondansetron HCl (Zofran) 4 mg IVP Q6HR PRN PRN Reason: Nausea And Vomiting Last Admin: 04/04/17 08:38 Dose: 4 mg Pantoprazole Sodium (Protonix) 40 mg PO DAILY [facility] Last Admin: 04/05/17 08:29 Dose: 40 mg Senna/Docusate Sodium (Senokot-S) 2 each PO HS [facility] Last Admin: 04/04/17 20:30 Dose: 2 each Sodium Chloride (Saline Flush) 10 ml IV BID [facility] Last Admin: 04/04/17 20:41 Dose: 10 ml Tramadol HCl (Ultram) 50 mg PO QID PRN PRN Reason: Moderate Pain Last Admin: 04/04/17 11:23 Dose: 50 mg Plan: 1. Continue aspirin, statin, Plavix, CASSY inhibitor, we will increase her lopressor to 75 mg by mouth twice a day. 2. Continue Toradol, and Ultram for pain control. 3. K-Dur 20 milliequivalents by mouth 1 per potassium replacement protocol. 4. We will discontinue left pleural CT. 5. Encourage incentive spirometry use every hour while awake. 6. Increase activity, out of bed to chair, ambulate in room. Physical therapy to follow. 7. Will monitor vital signs, urine output, daily labs and x-rays. 8. Blood sugar management per internal medicine service. 9. GI /DVT prophylaxis. 10. More recommendations as patient progresses. <Rik Morales - Last Filed: 04/05/17 14:24> Progress Note - Text The patient was seen and examined. I agree with the above assessment and plan. Overall she looks well. Her last remained chest tube was removed. She is currently on room air and ambulating without difficulty. We increased her Lopressor this morning. She is awaiting transfer to [facility].
--- NOTE | 2017-04-05 11:06 | P.PN ---
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 She has a history of coronary artery disease with previous stent placement to the LAD diagonal and circumflex coronary arteries back in 2011. She had been having recurrent class III angina that was relieved with nitroglycerin. She presented here on 03/24/2017 for an elective cardiac catheterization which revealed diffuse triple-vessel disease with multiple lesions in the LAD. There was a tight lesion in the circumflex and the right coronary artery was totally occluded. She was recommended coronary artery bypass grafting. She presented here today for an elective surgery which was performed by Dr. Morales. He performed a LIM to the LAD, saphenous pain graft to the OM and saphenous vein graft to the PDA. She is seen immediately postoperative in the intensive care unit. She is currently sedated on propofol 50 mcg/kg/m. She is on nitroglycerin at 20 mg/m and Cleviprex at 2 mg per hour. His IV is lactated Ringer's at 50 MLS per hour. Her current vent settings are SIMV mode of 12, tidal volume 360, FiO2 of 80% and a PEEP of 5. Blood gases revealed a PaO2 of 175, pCO2 21 and a pH of 7.56. 6 reveal some left lower lobe atelectasis. There is a split mediastinal chest tubes and one left pleural chest tube. Nasogastric tube is in place. No sizable pneumothorax or effusion. Her hemoglobin is 7.3. Patient was reevaluated today on 04/03/2017. She was extubated uneventfully last night. Her ABG was reflecting a picture of respiratory alkalosis, however this was felt to be and at her patient was later switched to an assist control mode of mechanical ventilation, her tidal volumes were adjusted, and follow-up ABG after all this adjustment showed normal ABG. Again the patient was extubated overnight, and she is doing well except for intermittent episodes of nausea and vomiting, patient is receiving Zofran. Labs from today were reviewed, hemoglobin is 7.6. ABG prior to extubation showed a pO2 of 113 pCO2 of 34 pH of 7.40. Chest x-ray showed mostly postoperative changes, no evidence of pneumonia and no evidence of congestive heart failure. Patient was reevaluated on 04/04/2017, continues to do quite well, relatively asymptomatic, blood pressure is slightly elevated. Chest x-ray is reassuring. Hemoglobin is 7.8, WBC count is 12.7, basic metabolic profile is normal. Patient is in sinus rhythm. Reevaluated on 04/05/2017, patient has very smooth postoperative course, relatively asymptomatic, on nasal cannula, chest x-ray is clear left sided chest tube remains in place. No evidence of infiltrate no atelectasis and no pneumothorax. Labs were also reviewed. Objective - Vital Signs Vital signs: Vital Signs Temp 98 F 04/05/17 07:30 Pulse 109 H 04/05/17 08:00 Resp 20 04/05/17 08:00 BP 165/100 04/05/17 08:00 Pulse Ox 98 04/05/17 08:00 Intake & Output 04/04/17 04/05/17 04/05/17 18:59 06:59 18:59 Intake Total 708.617 120 30 Output Total 1455 920 80 Balance -746.383 -800 -50 Weight 50.6 kg 50.3 kg Intake: IV 247 120 30 Lactated Ringers 1,000 ml 220 120 30 @ 20 mls/hr IV .Q24H [facility] Rx#:[id number] Pressure Bag 27 Intake, IV Titration 461.617 Amount Esmolol in Sodium 361.617 Chloride Pmx 2.5 gm In Saline 1 250ml.bag @ 25 MCG/KG/MIN 6.25 mls/hr IV .Q24H [facility] Rx#:[id number] Magnesium Sulfate-D5w Pmx 100 1 gm In Dextrose/Water 1 100ml.bag @ 100 mls/hr IVPB Q1H [facility] Rx#: [id number] Output: Chest Tube Drainage 160 140 80 Chest Tube Bilateral 80 Mediastinal Chest Tube Left Lateral 80 140 80 Chest Drainage 50 30 Left Knee 50 30 Urine 1245 750 0 Other: Voiding Method Indwelling Catheter Indwelling Catheter # Voids 1 ABP, PAP, CO, CI - Last Documented Arterial Blood Pressure 172/78 Pulmonary Artery Pressure 25/13 Cardiac Output 2.8 Cardiac Index 2.0 - Exam Gen.: Revealed a 47-year-old female, in no distress, on nasal cannula, HEAD: Normocephalic. EYES: Within normal. NOSE: Clear with pink turbinates. THROAT: Clear. NECK: No masses, no JVD. CHEST: Dressing dry and intact. Splint mediastinal and left pleural chest tubes in place. Pacer wires in place. LUNGS: Equal air entry with crackles in the posterior bases more so on the left. CVS: S1 and S2 normal with no audible murmurs, regular rhythm. ABDOMEN: No hepatosplenomegaly, no active bowel sounds. SPINE: No scoliosis or deformity SKIN: No rashes Extremities: There are bilateral Yury wraps to lower extremities. CAROL drain to the left lower extremity. Peripheral pulses are intact. - Labs CBC & Chem 7: 04/05/17 07:15 04/05/17 07:15 Labs: Abnormal Lab Results - Last 24 Hours (Table) 04/04/17 04/04/17 04/04/17 Range/Units 12:42 18:04 20:40 WBC (3.8-10.6) k/uL RBC (3.80-5.40) m/uL Hgb (11.4-16.0) gm/dL Hct (34.0-46.0) % Neutrophils # (1.3-7.7) k/uL Chloride (98-107) mmol/L Glucose (74-99) mg/dL POC Glucose (mg/dL) 123 H 120 H 119 H (75-99) mg/dL Total Protein (6.3-8.2) g/dL 04/05/17 04/05/17 04/05/17 Range/Units 07:12 07:15 07:15 WBC 10.9 H (3.8-10.6) k/uL RBC 2.94 L (3.80-5.40) m/uL Hgb 8.7 L (11.4-16.0) gm/dL Hct 27.5 L (34.0-46.0) % Neutrophils # 8.8 H (1.3-7.7) k/uL Chloride 109 H (98-107) mmol/L Glucose 110 H (74-99) mg/dL POC Glucose (mg/dL) 110 H (75-99) mg/dL Total Protein 6.0 L (6.3-8.2) g/dL Assessment and Plan Plan: #1 Severe diffuse triple-vessel coronary artery disease status post coronary artery bypass grafting utilizing a LIM to the LAD, saphenous vein graft to the obtuse marginal branch, saphenous vein graft to the posterior descending artery. Post Operative day #3 #2 Coronary artery disease with previous stent placements 3 to the LAD, diagonal and circumflex coronary arteries. #3Hyperlipidemia. #4Hypertension. #5 Chronic and ongoing tobacco dependence. Patient was counseled regarding smoking cessation Recommendation: Continue present treatment plan including incentive spirometry, bronchodilators, and early ambulation. Possible transfer out of the ICU today. Time with Patient: Less than 30
[2017-04-05 13:08] LABS: Glucose,Whole Blood 84 mg/dL (75-99)
[2017-04-05] MEDS: CLEVIDIPINE BUTYRATE 25 MG in EMPTY BAG 1 BAG IV SCH (13:44)
[2017-04-05] MEDS: LACTATED RINGERS 1,000 ML IV SCH (13:45)
[2017-04-05] MEDS ORDERED: ceFAZolin 1,000 MG in DEXTROSE/WATER 1 50ML.BAG IVPB SCH (16:00)
--- NOTE | 2017-04-05 16:00 | P.PN ---
Subjective 47-year-old female seen in the intensive care unit postop day 3 from a CABG With a LIM to the LAD, saphenous pain graft to the OM and saphenous vein graft to the PDA. Patient is currently on room air. Denies having any headaches, blurry vision, nausea, vomiting, diarrhea. Patient states that she has tenderness in her left inner thigh Objective - Vital Signs Vital signs: Vital Signs Temp 99.3 F 04/05/17 12:00 Pulse 109 H 04/05/17 14:00 Resp 27 H 04/05/17 14:00 BP 142/95 04/05/17 14:00 Pulse Ox 92 L 04/05/17 13:00 Intake & Output 04/04/17 04/05/17 04/05/17 18:59 06:59 18:59 Intake Total 708.617 120 230 Output Total 1455 920 160 Balance -746.383 -800 70 Weight 50.6 kg 50.3 kg Intake: IV 247 120 30 Lactated Ringers 1,000 ml 220 120 30 @ 20 mls/hr IV .Q24H [facility] Rx#:[id number] Pressure Bag 27 Intake, IV Titration 461.617 Amount Esmolol in Sodium 361.617 Chloride Pmx 2.5 gm In Saline 1 250ml.bag @ 25 MCG/KG/MIN 6.25 mls/hr IV .Q24H [facility] Rx#:[id number] Magnesium Sulfate-D5w Pmx 100 1 gm In Dextrose/Water 1 100ml.bag @ 100 mls/hr IVPB Q1H [facility] Rx#: [id number] Oral 200 Output: Chest Tube Drainage 160 140 160 Chest Tube Bilateral 80 Mediastinal Chest Tube Left Lateral 80 140 160 Chest Drainage 50 30 0 Left Knee 50 30 0 Urine 1245 750 0 Other: Voiding Method Indwelling Catheter Indwelling Catheter Indwelling Catheter # Voids 1 ABP, PAP, CO, CI - Last Documented Arterial Blood Pressure 172/78 Pulmonary Artery Pressure 25/13 Cardiac Output 2.8 Cardiac Index 2.0 - Exam Gen. appearance alert oriented 3 does not appear to be in distress neck is supple no JVD Lungs diminished breath sounds no rhonchi or wheezing crackles Heart S1-S2 heard regular rate and rhythm Abdomen is soft nontender organomegaly Left lower extremity saphenous vein graft site appears within normal limits her left upper thigh however there is a streak of induration consistent with thrombophlebitis warm to touch tender to palpation Neuro no focal motor or sensory deficits noted - Labs CBC & Chem 7: 04/05/17 07:15 04/05/17 07:15 Labs: Abnormal Lab Results - Last 24 Hours (Table) 04/04/17 04/04/17 04/05/17 Range/Units 18:04 20:40 07:12 WBC (3.8-10.6) k/uL RBC (3.80-5.40) m/uL Hgb (11.4-16.0) gm/dL Hct (34.0-46.0) % Neutrophils # (1.3-7.7) k/uL Chloride (98-107) mmol/L Glucose (74-99) mg/dL POC Glucose (mg/dL) 120 H 119 H 110 H (75-99) mg/dL Total Protein (6.3-8.2) g/dL 04/05/17 04/05/17 Range/Units 07:15 07:15 WBC 10.9 H (3.8-10.6) k/uL RBC 2.94 L (3.80-5.40) m/uL Hgb 8.7 L (11.4-16.0) gm/dL Hct 27.5 L (34.0-46.0) % Neutrophils # 8.8 H (1.3-7.7) k/uL Chloride 109 H (98-107) mmol/L Glucose 110 H (74-99) mg/dL POC Glucose (mg/dL) (75-99) mg/dL Total Protein 6.0 L (6.3-8.2) g/dL Assessment and Plan Plan: #1 CABG 3, severe triple-vessel disease with previous PCI postop day 3 #2 acute blood loss anemia as expected from surgery #3 left upper thigh superficial thrombophlebitis #4 sinus tachycardia or graft #5 history of hypertension #6 chronic tobacco use Plan We'll obtain a ultrasound of the left upper thigh to evaluate the clinical findings we'll start the patient empirically on cefazolin 1 g every 8 hours. DVT prophylaxis Incentive spirometry
[2017-04-05] MEDS ORDERED: Potassium Replacement Protocol 1 EACH MISC MISCELLANE PRN (16:11)
--- NOTE | 2017-04-05 16:20 | US ---
EXAMINATION TYPE: US venous doppler duplex LE LT DATE OF EXAM: 04/05/2017 4:12 PM COMPARISON: NONE CLINICAL HISTORY: pain. pt had CABG with left GSV harvested SIDE PERFORMED: left TECHNIQUE: The lower extremity deep venous system is examined utilizing real time linear array sonog isac with graded compression, doppler sonography and color-flow sonography. VESSELS IMAGED: External Iliac Vein (EIV) Common Femoral Vein Deep Femoral Vein Greater Saphenous Vein * Femoral Vein Popliteal Vein Small Saphenous Vein * Proximal Calf Veins (* superficial vessels) Left Leg: neg for LLE dvt; at the pt's area of swelling, redness and pain there is a linear shadowin g structure that presents the drain left in the GSV fossa. Results called to Ernie Barakat at the time of the exam. IMPRESSION: 1. No left lower extremity deep venous thrombosis. 2. There is a report of a drainage catheter present in the region of the greater saphenous vein harve sting site.
[2017-04-05 16:54] LABS: Glucose,Whole Blood 77 mg/dL (75-99)
[2017-04-05] MEDS: SENNOSIDES-DOCUSATE SODIUM 1 EACH TAB PO SCH (20:37)
[2017-04-05 21:11] LABS: Glucose,Whole Blood 123 mg/dL (75-99)
[2017-04-06] MEDS: HEPARIN SODIUM,PORCINE 5,000 UNIT/ML 1 ML VIAL SQ SCH ×4 (00:02→23:59)
[2017-04-06] MEDS: KETOROLAC 30 MG/ML 1 ML VIAL IVP SCH ×3 (05:32→11:27)
[2017-04-06] MEDS: INSULIN LISPRO (humaLOG) 300 UNIT/3 ML VIAL SQ SCH ×4 (07:00→20:44)
--- NOTE | 2017-04-06 07:03 | XR ---
EXAMINATION TYPE: XR chest 2V DATE OF EXAM: 04/06/2017 6:15 AM COMPARISON: 04/05/2017 HISTORY: Chest pain status post CABG. TECHNIQUE: Frontal and lateral views of the chest are obtained. FINDINGS: Small layering pleural effusions are present, left greater than right no pulmonary vascula r congestion. Patient's nipple shadow overlies the right midlung. Postsurgical changes status post CA BG are seen as sternotomy wires and mediastinal clips. No pneumothorax. IMPRESSION: New small pleural effusions, left greater than right. No overt pulmonary vascular conges tion.
[2017-04-06 07:10] LABS: Glucose,Whole Blood 90 mg/dL (75-99)
[2017-04-06 07:18] LABS: Basophils % (A) 0 %; CH 30.1; CHCM 31.8; Eosinophils % (A) 0 %; HDW 2.44; HGB 7.9 gm/dL (11.4-16.0); Luc % (Auto) 3; Lymphocytes # (A) 1.5 k/uL (1.0-4.8); Lymphocytes % (A) 19 %; MCH 29.9 pg (25.0-35.0); MCHC 31.5 g/dL (31.0-37.0); MCV 95.1 fL (80.0-100.0); Mean Platelet Volume 8.3; Monocytes # (A) 0.5 k/uL (0-1.0); Monocytes % (A) 7 %; Neutrophils # (A) 5.6 k/uL (1.3-7.7); Neutrophils % (A) 71 %; RBC 2.63 m/uL (3.80-5.40); RDW 14.1 % (11.5-15.5); WBC 7.9 k/uL (3.8-10.6); WBC (Perox) 8.19
[2017-04-06] MEDS: IPRATROPIUM-ALBUTEROL 3 ML NEB INHALATION SCH ×4 (07:24→19:21)
[2017-04-06 07:36] LABS: Anion Gap 10 mmol/L; Blood Urea Nitrogen 14 mg/dL (7-17); Calcium 8.9 mg/dL (8.4-10.2); Carbon Dioxide 22 mmol/L (22-30); Chloride 110 mmol/L (98-107); Glucose 90 mg/dL (74-99); Magnesium 1.7 mg/dL (1.6-2.3); Non-African American GFR(MDRD) >60 (>60 ml/min/1.73 sqM); Potassium 3.5 mmol/L (3.5-5.1); Sodium 142 mmol/L (137-145)
[2017-04-06] MEDS: PANTOPRAZOLE 40 MG TABLET PO SCH (08:52)
[2017-04-06] MEDS: CLOPIDOGREL 75 MG TAB PO SCH (08:52)
[2017-04-06] MEDS: ATORVASTATIN 40 MG TAB PO SCH (08:52)
[2017-04-06] MEDS: METOPROLOL TARTRATE 50 MG TAB PO SCH ×3 (08:53→20:38)
[2017-04-06] MEDS: LISINOPRIL 20 MG TAB PO SCH (08:53)
[2017-04-06] MEDS: ASPIRIN 325 MG TAB PO SCH (08:56)
[2017-04-06] MEDS: POTASSIUM CHLORIDE ER 20 MEQ TAB.ER PO SCH ×2 (08:56→11:25)
[2017-04-06] MEDS: MAGNESIUM SULFATE-D5W PMX 1 GM in DEXTROSE/WATER 1 100ML.BAG IVPB SCH ×2 (10:11→11:24)
--- NOTE | 2017-04-06 10:24 | P.PN ---
Subjective Principal diagnosis: Status post CABG postoperative day # 4 This is a 47-year-old female patient who follows with Dr. 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 She has a history of coronary artery disease with previous stent placement to the LAD diagonal and circumflex coronary arteries back in 2011. She had been having recurrent class III angina that was relieved with nitroglycerin. She presented here on 03/24/2017 for an elective cardiac catheterization which revealed diffuse triple-vessel disease with multiple lesions in the LAD. There was a tight lesion in the circumflex and the right coronary artery was totally occluded. She was recommended coronary artery bypass grafting. She presented here today for an elective surgery which was performed by Dr. Morales. He performed a LIM to the LAD, saphenous pain graft to the OM and saphenous vein graft to the PDA. She is seen immediately postoperative in the intensive care unit. She is currently sedated on propofol 50 mcg/kg/m. She is on nitroglycerin at 20 mg/m and Cleviprex at 2 mg per hour. His IV is lactated Ringer's at 50 MLS per hour. Her current vent settings are SIMV mode of 12, tidal volume 360, FiO2 of 80% and a PEEP of 5. Blood gases revealed a PaO2 of 175, pCO2 21 and a pH of 7.56. 6 reveal some left lower lobe atelectasis. There is a split mediastinal chest tubes and one left pleural chest tube. Nasogastric tube is in place. No sizable pneumothorax or effusion. Her hemoglobin is 7.3. Patient was reevaluated today on 04/03/2017. She was extubated uneventfully last night. Her ABG was reflecting a picture of respiratory alkalosis, however this was felt to be and at her patient was later switched to an assist control mode of mechanical ventilation, her tidal volumes were adjusted, and follow-up ABG after all this adjustment showed normal ABG. Again the patient was extubated overnight, and she is doing well except for intermittent episodes of nausea and vomiting, patient is receiving Zofran. Labs from today were reviewed, hemoglobin is 7.6. ABG prior to extubation showed a pO2 of 113 pCO2 of 34 pH of 7.40. Chest x-ray showed mostly postoperative changes, no evidence of pneumonia and no evidence of congestive heart failure. Patient was reevaluated on 04/04/2017, continues to do quite well, relatively asymptomatic, blood pressure is slightly elevated. Chest x-ray is reassuring. Hemoglobin is 7.8, WBC count is 12.7, basic metabolic profile is normal. Patient is in sinus rhythm. Reevaluated on 04/05/2017, patient has very smooth postoperative course, relatively asymptomatic, on nasal cannula, chest x-ray is clear left sided chest tube remains in place. No evidence of infiltrate no atelectasis and no pneumothorax. Labs were also reviewed. Patient was reevaluated today on 04/06/2017, she seems to be doing quite well, she is ambulating already, no cough no wheezing no shortness of breath. Chest x -ray is reassuring. Labs showed hemoglobin of 7.9 electrolytes are normal renal profile is normal. Objective - Vital Signs Vital signs: Vital Signs Temp 98.4 F 04/06/17 09:01 Pulse 130 H 04/06/17 09:01 Resp 16 04/06/17 09:01 BP 149/92 04/06/17 09:01 Pulse Ox 100 04/06/17 09:01 Intake & Output 04/05/17 04/06/17 04/06/17 18:59 06:59 18:59 Intake Total 430 Output Total 160 30 Balance 270 -30 Weight 44 kg Intake: IV 30 Lactated Ringers 1,000 ml 30 @ 20 mls/hr IV .Q24H [facility] Rx#:[id number] Oral 400 Output: Chest Tube Drainage 160 Chest Tube Left Lateral 160 Chest Drainage 0 30 Left Knee 0 30 Urine 0 Other: Voiding Method Indwelling Catheter Toilet Toilet # Voids 1 1 ABP, PAP, CO, CI - Last Documented Arterial Blood Pressure 172/78 Pulmonary Artery Pressure 25/13 Cardiac Output 2.8 Cardiac Index 2.0 - Exam Physical Exam: Revealed a 47-year-old female in no distress. HEENT:[Neck is supple.] [No neck masses.] [No thyromegaly.] [No JVD.] Chest: [Clear throughout, no crackles, no rhonchi, no wheezes.] Cardiac Exam: [Normal S1 and S2, no S3 gallop, no murmur.] Abdomen: [Soft, nontender, no megaly, no rebound, no guarding, normal bowel sounds.] Extremities: [No clubbing, no edema, no cyanosis.] Neurological Exam: [No focal neurologic deficit.] - Labs CBC & Chem 7: 04/06/17 06:05 04/06/17 06:05 Labs: Abnormal Lab Results - Last 24 Hours (Table) 04/05/17 04/06/17 04/06/17 Range/Units 20:48 06:05 06:05 RBC 2.63 L (3.80-5.40) m/uL Hgb 7.9 L (11.4-16.0) gm/dL Hct 25.0 L (34.0-46.0) % Chloride 110 H (98-107) mmol/L POC Glucose (mg/dL) 123 H (75-99) mg/dL Assessment and Plan Plan: #1 Severe diffuse triple-vessel coronary artery disease status post coronary artery bypass grafting utilizing a LIM to the LAD, saphenous vein graft to the obtuse marginal branch, saphenous vein graft to the posterior descending artery. Post Operative day # 4 #2 Coronary artery disease with previous stent placements 3 to the LAD, diagonal and circumflex coronary arteries. #3Hyperlipidemia. #4Hypertension. #5 Chronic and ongoing tobacco dependence. Patient was counseled regarding smoking cessation Recommendation: Continue present treatment plan including incentive spirometry, bronchodilators, continue to ambulate in the hallway, possible discharge planning in the next 24 hours.
--- NOTE | 2017-04-06 10:31 | P.PN ---
<Calvin Barakat - Last Filed: 04/06/17 10:23> Progress Note - Text CV Surgery Nursing Principal diagnosis: Coronary artery disease. POD #4 coronary artery bypass grafting 3 vessels, left internal mammary artery to left anterior descending artery, saphenous vein graft to posterior descending artery, saphenous vein graft to obtuse marginal artery. Endoscopic vein harvest right greater saphenous vein. Intraoperative Epi-aortic ultrasound and transesophageal echocardiogram. Patient awake and alert, no distress noted, she is complaining of pain to her left thigh area from the CAROL drain placement site. She states she has been up ambulating in the hallway without difficulty. Vital Signs: Afebrile Vital Signs - 24 hr 04/05/17 04/05/17 04/05/17 11:00 12:00 13:00 Temperature 99.3 F Pulse Rate 97 97 110 H Pulse Rate [ 80 Brick Picker ] Respiratory 28 H 29 H 24 Rate Blood Pressure 150/102 144/98 155/94 Blood Pressure [Left Arm Sitting] Blood Pressure [Right Arm Sitting] O2 Sat by Pulse 98 97 92 L Oximetry 04/05/17 04/05/17 04/05/17 14:00 15:00 16:00 Temperature Pulse Rate 109 H 104 H 110 H Pulse Rate [ 80 Brick Picker ] Respiratory 27 H 20 25 H Rate Blood Pressure 142/95 145/94 153/97 Blood Pressure [Left Arm Sitting] Blood Pressure [Right Arm Sitting] O2 Sat by Pulse 96 Oximetry 04/05/17 04/05/17 04/06/17 16:56 20:00 00:00 Temperature 98.7 F 98.7 F 99.1 F Pulse Rate Pulse Rate [ 116 H 122 H 105 H Brick Picker ] Respiratory 16 16 16 Rate Blood Pressure Blood Pressure 171/91 [Left Arm Sitting] Blood Pressure 161/97 156/97 [Right Arm Sitting] O2 Sat by Pulse 95 95 94 L Oximetry 04/06/17 04/06/17 04:00 09:01 Temperature 98.7 F 98.4 F Pulse Rate Pulse Rate [ 110 H 130 H Brick Picker ] Respiratory 16 16 Rate Blood Pressure Blood Pressure 152/92 149/92 [Left Arm Sitting] Blood Pressure [Right Arm Sitting] O2 Sat by Pulse 98 100 Oximetry Labs: Short CBC 04/06/17 Range/Units 06:05 WBC 7.9 (3.8-10.6) k/uL Hgb 7.9 L (11.4-16.0) gm/dL Hct 25.0 L (34.0-46.0) % Plt Count 190 (150-450) k/uL Neutrophils # 5.6 (1.3-7.7) k/uL BMP 04/06/17 06:05 Sodium 142 Potassium 3.5 Chloride 110 H Carbon Dioxide 22 BUN 14 Creatinine 0.60 Glucose 90 Calcium 8.9 Magnesium 1.7 Lungs: Essentially clear throughout, diminished bilateral bases. Respirations are symmetrical and unlabored. O2 sat: 98% on room air. I/S: 750 mL, reviewed with the patient important of using her incentive spirometry every hour while awake. The patient did give a good return demonstration on her incentive spirometry. Heart: S1S2, regular rhythm and tachycardic rate, negative for S3, gallop or murmur. Remote telemetry showing sinus tachycardia heart rate 118. Some ST depression noted in lead 2. Sternum stable, chest incision clean with dressing clean and dry. Heart hugger in place, patient is demonstrating proper use of her heart hugger. Left leg incisions clean dry and well approximated. No drainage noted. Some ecchymosis noted to her left thigh area. CAROL drain in place 30 mL output in the last 8 hours, 60 mL output in the last 24 hours. Knee-high FARZANA hose and sequential compression devices in place to bilateral lower extremities. Abdomen: Soft, Positive bowel sounds present in all 4 quadrants. CBGs: 77-123 mg/dL last 24 hours. U/O: Adequate. 24 hr Total: Intake & Output 04/04/17 04/05/17 04/06/17 04/07/17 06:59 06:59 06:59 06:59 Intake Total 3.804 828.617 430 Output Total 2565 2375 190 Balance -541.196 -1546.383 240 Weight 50.6 kg 50.3 kg 44 kg Active Medications Albuterol/Ipratropium (Duoneb 0.5 Mg-3 Mg/3 Ml Soln) 3 ml INHALATION RT-Q2H PRN PRN Reason: Shortness Of Breath Or Wheezing Albuterol/Ipratropium (Duoneb 0.5 Mg-3 Mg/3 Ml Soln) 3 ml INHALATION RT-QID [facility] Last Admin: 04/06/17 07:24 Dose: Not Given Aspirin (Aspirin) 325 mg PO DAILY [facility] Last Admin: 04/06/17 08:56 Dose: 325 mg Atorvastatin Calcium (Lipitor) 40 mg PO DAILY [facility] Last Admin: 04/06/17 08:52 Dose: 40 mg Benzocaine/Menthol (Cepacol Lozenge) 1 each MUCOUS MEM Q2H PRN PRN Reason: Sore Throat Bisacodyl (Dulcolax) 10 mg RECTAL DAILY PRN PRN Reason: Constipation Clopidogrel Bisulfate (Plavix) 75 mg PO DAILY [facility] Last Admin: 04/06/17 08:52 Dose: 75 mg Heparin Sodium (Porcine) (Heparin) 5,000 unit SQ Q8HR [facility] Last Admin: 04/06/17 08:52 Dose: 5,000 unit Hydralazine HCl (Apresoline) 10 mg IVP Q6HR PRN PRN Reason: Blood Pressure - High Last Admin: 04/05/17 00:22 Dose: 10 mg Magnesium Sulfate/Dextrose 1 (gm/ IV Solution) 100 mls @ 100 mls/hr IVPB Q1H [facility] Stop: 04/06/17 10:59 Last Admin: 04/06/17 10:11 Dose: 100 mls/hr Insulin Human Lispro (Humalog) 0 unit SQ ACHS [facility] PRN Reason: Protocol Last Admin: 04/06/17 07:00 Dose: Not Given Ketorolac Tromethamine (Toradol) 15 mg IVP Q6HR [facility] Stop: 04/07/17 08:39 Last Admin: 04/06/17 05:32 Dose: Not Given Lisinopril (Zestril) 20 mg PO DAILY [facility] Last Admin: 04/06/17 08:53 Dose: 20 mg Magnesium Hydroxide (Milk Of Magnesia) 2,400 mg PO BID PRN PRN Reason: Constipation Metoclopramide HCl (Reglan) 10 mg IVP Q4H PRN PRN Reason: Nausea And Vomiting Last Admin: 04/04/17 11:21 Dose: 10 mg Metoprolol Tartrate (Lopressor) 100 mg PO BID [facility] Last Admin: 04/06/17 08:56 Dose: 100 mg Miscellaneous Information (Magnesium Per Protocol) 1 each MISCELLANE DAILY PRN ; Protocol PRN Reason: Per Protocol Miscellaneous Information (Phosphorus Per Protocol) 1 each MISCELLANE DAILY PRN ; Protocol PRN Reason: Per Protocol Miscellaneous Information (Potassium Per Protocol) 1 each MISCELLANE DAILY PRN ; Protocol PRN Reason: Per Protocol Miscellaneous Information (Potassium Per Protocol) 1 each MISCELLANE DAILY PRN ; Protocol PRN Reason: Per Protocol Ondansetron HCl (Zofran) 4 mg IVP Q6HR PRN PRN Reason: Nausea And Vomiting Last Admin: 04/04/17 08:38 Dose: 4 mg Pantoprazole Sodium (Protonix) 40 mg PO DAILY [facility] Last Admin: 04/06/17 08:52 Dose: 40 mg Senna/Docusate Sodium (Senokot-S) 2 each PO HS [facility] Last Admin: 04/05/17 20:37 Dose: 2 each Tramadol HCl (Ultram) 50 mg PO QID PRN PRN Reason: Moderate Pain Last Admin: 04/04/17 11:23 Dose: 50 mg Plan: 1. Continue aspirin, statin, Plavix, CASSY inhibitor, we will increase her lopressor to 100 mg by mouth twice a day. 2. Continue Toradol, and Ultram for pain control. 3. Magnesium replacement per protocol, potassium replacement per protocol. Repeat BMP and magnesium level in a.m. 4. We will remove her CAROL drain to her left leg. 5. Encourage incentive spirometry use every hour while awake. 6. Increase activity, out of bed to chair, ambulate in room. Physical therapy to follow. 7. Will monitor vital signs, urine output, daily labs and x-rays. 8. Blood sugar management per internal medicine service. 9. GI /DVT prophylaxis. 10. More recommendations as patient progresses, discharge planning in place. <Rik Morales - Last Filed: 04/06/17 15:57> Progress Note - Text The patient was seen and examined. I agree with the above assessment and plan. She continues to have sinus tachycardia. We increased her Lopressor to 100 mg every 12 hours. We will add Cardizem. Her CAROL drain was removed from her leg. Her chest x-ray was reviewed and appears to be clear. She will be discharged home tomorrow.
--- NOTE | 2017-04-06 11:22 | P.PN ---
Subjective Principal diagnosis: Status post CABG This is a pleasant 47-year-old female patient who is a patient of Dr. VC Tripp with a known history of coronary artery disease, hypertension, and dyslipidemia, was admitted to the hospital yesterday and underwent CABG. The patient is known to have coronary artery disease with previous LAD stenting and circumflex stenting. She was experiencing chest discomfort consistent with angina. She underwent a heart catheterization in January and that showed severe triple-vessel CAD. She underwent coronary artery bypass grafting yesterday with LIM to LAD, SVG to diagonal, SVG to PDA. She has been tachycardic and hypertensive. The dose of metoprolol has increased to 100 mg by mouth twice a day earlier by the surgical team. Beside that she continues to be on dual antiplatelet therapy as well as statin. Objective - Vital Signs Vital signs: Vital Signs Temp 98.4 F 04/06/17 09:01 Pulse 130 H 04/06/17 09:01 Resp 16 04/06/17 09:01 BP 149/92 04/06/17 09:01 Pulse Ox 100 04/06/17 09:01 Intake & Output 04/05/17 04/06/17 04/06/17 18:59 06:59 18:59 Intake Total 430 Output Total 160 30 30 Balance 270 -30 -30 Weight 44 kg Intake: IV 30 Lactated Ringers 1,000 ml 30 @ 20 mls/hr IV .Q24H [facility] Rx#:[id number] Oral 400 Output: Chest Tube Drainage 160 Chest Tube Left Lateral 160 Chest Drainage 0 30 30 Left Knee 0 30 30 Urine 0 Other: Voiding Method Indwelling Catheter Toilet Toilet # Voids 1 1 ABP, PAP, CO, CI - Last Documented Arterial Blood Pressure 172/78 Pulmonary Artery Pressure 25/13 Cardiac Output 2.8 Cardiac Index 2.0 - Constitutional General appearance: Present: no acute distress - Respiratory Respiratory: bilateral: CTA - Cardiovascular Rhythm: regular Heart sounds: normal: S1, S2 - Labs CBC & Chem 7: 04/06/17 06:05 04/06/17 06:05 Labs: Abnormal Lab Results - Last 24 Hours (Table) 04/05/17 04/06/17 04/06/17 Range/Units 20:48 06:05 06:05 RBC 2.63 L (3.80-5.40) m/uL Hgb 7.9 L (11.4-16.0) gm/dL Hct 25.0 L (34.0-46.0) % Chloride 110 H (98-107) mmol/L POC Glucose (mg/dL) 123 H (75-99) mg/dL Assessment and Plan Plan: Assessment #1 CAD and status post CABG as described above #2 systemic hypertension #3 dyslipidemia Plan #1 continue the current medical treatment was dual antiplatelet therapy and statin #2 the dose of metoprolol has increased earlier today #3 continue monitor the heart rhythm and the patient has been maintaining normal sinus mechanism #4 follow-up with the patient
[2017-04-06 12:01] LABS: Glucose,Whole Blood 80 mg/dL (75-99)
[2017-04-06] MEDS: DILTIAZEM ORAL 30 MG TAB PO SCH ×2 (17:19→20:37)
[2017-04-06 17:20] LABS: Glucose,Whole Blood 99 mg/dL (75-99)
[2017-04-06] MEDS: SENNOSIDES-DOCUSATE SODIUM 1 EACH TAB PO SCH (20:38)
[2017-04-06 20:43] LABS: Glucose,Whole Blood 110 mg/dL (75-99)
[2017-04-07 00:34] VITALS: RESP 16
[2017-04-07 02:08] LABS: Glucose,Whole Blood 111 mg/dL (75-99)
[2017-04-07 06:12] LABS: Glucose,Whole Blood 89 mg/dL (75-99)
[2017-04-07] MEDS: INSULIN LISPRO (humaLOG) 300 UNIT/3 ML VIAL SQ SCH (06:34)
[2017-04-07 07:23] LABS: Anion Gap 9 mmol/L; Blood Urea Nitrogen 16 mg/dL (7-17); Calcium 8.8 mg/dL (8.4-10.2); Carbon Dioxide 22 mmol/L (22-30); Chloride 110 mmol/L (98-107); Glucose 89 mg/dL (74-99); Magnesium 1.7 mg/dL (1.6-2.3); Non-African American GFR(MDRD) >60 (>60 ml/min/1.73 sqM); Potassium 3.9 mmol/L (3.5-5.1); Sodium 141 mmol/L (137-145)
[2017-04-07 07:38] LABS: CH 30.3; HCT 21.2 % (34.0-46.0); HDW 2.66; HGB 7.2 gm/dL (11.4-16.0); MCH 31.2 pg (25.0-35.0); MCHC 33.7 g/dL (31.0-37.0); MCV 92.4 fL (80.0-100.0); Mean Platelet Volume 7.9; RBC 2.29 m/uL (3.80-5.40); RDW 14.7 % (11.5-15.5); WBC 8.1 k/uL (3.8-10.6)
[2017-04-07] MEDS ORDERED: POTASSIUM CHLORIDE ER 20 MEQ TAB.ER PO SCH (08:00)
[2017-04-07] MEDS: ASPIRIN 325 MG TAB PO SCH (08:18)
[2017-04-07] MEDS: CLOPIDOGREL 75 MG TAB PO SCH (08:18)
[2017-04-07] MEDS: DILTIAZEM ORAL 30 MG TAB PO SCH ×2 (08:18→13:22)
[2017-04-07] MEDS: LISINOPRIL 20 MG TAB PO SCH (08:18)
[2017-04-07] MEDS: ATORVASTATIN 40 MG TAB PO SCH (08:19)
[2017-04-07] MEDS: HEPARIN SODIUM,PORCINE 5,000 UNIT/ML 1 ML VIAL SQ SCH (08:19)
[2017-04-07] MEDS: METOPROLOL TARTRATE 50 MG TAB PO SCH (08:19)
[2017-04-07] MEDS: traMADol 50 MG TAB PO PRN (08:28)
[2017-04-07] MEDS: MAGNESIUM SULFATE-D5W PMX 1 GM in DEXTROSE/WATER 1 100ML.BAG IVPB SCH ×2 (08:31→11:04)
[2017-04-07] MEDS: PANTOPRAZOLE 40 MG TABLET PO SCH (08:37)
--- NOTE | 2017-04-07 09:03 | P.PN ---
Progress Note - Text CV Surgery Nursing Principal diagnosis: Coronary artery disease. POD #5 coronary artery bypass grafting 3 vessels, left internal mammary artery to left anterior descending artery, saphenous vein graft to posterior descending artery, saphenous vein graft to obtuse marginal artery. Endoscopic vein harvest right greater saphenous vein. Intraoperative Epi-aortic ultrasound and transesophageal echocardiogram. Patient awake and alert, no distress noted, no specific complaints. She has been up ambulating in the hallway without difficulty. Vital Signs: Afebrile Vital Signs - 24 hr 04/06/17 04/06/17 04/06/17 09:01 11:41 12:00 Temperature 98.4 F 98.5 F 97.2 F L Pulse Rate [ 130 H 97 97 [employer] ] Respiratory 16 16 16 Rate Blood Pressure 149/92 123/93 123/93 [Left Arm Sitting] Blood Pressure [Right Arm Sitting] O2 Sat by Pulse 100 100 100 Oximetry 04/06/17 04/06/17 04/07/17 16:00 20:00 00:00 Temperature 97.7 F 98.2 F Pulse Rate [ 92 122 H 102 H [employer] ] Respiratory 16 17 16 Rate Blood Pressure 136/87 [Left Arm Sitting] Blood Pressure 133/93 109/78 [Right Arm Sitting] O2 Sat by Pulse 100 100 98 Oximetry 04/07/17 04/07/17 03:52 04:00 Temperature 97.8 F Pulse Rate [ 115 H [employer] ] Respiratory 16 16 Rate Blood Pressure [Left Arm Sitting] Blood Pressure 131/87 [Right Arm Sitting] O2 Sat by Pulse 98 Oximetry Labs: Short CBC 04/07/17 Range/Units 05:51 WBC 8.1 (3.8-10.6) k/uL Hgb 7.2 L (11.4-16.0) gm/dL Hct 21.2 L (34.0-46.0) % Plt Count 217 (150-450) k/uL BMP 04/07/17 05:51 Sodium 141 Potassium 3.9 Chloride 110 H Carbon Dioxide 22 BUN 16 Creatinine 0.62 Glucose 89 Calcium 8.8 Magnesium 1.7 Lungs: Essentially clear throughout, diminished bilateral bases. Respirations are symmetrical and unlabored. O2 sat: 98% on room air. I/S: 750 mL, reviewed with the patient important of using her incentive spirometry every hour while awake. Patient did give a good return demonstration on her incentive spirometry. Heart: S1S2, regular rhythm with a tachycardic rate. No S3, gallop or murmur heard. Remote telemetry showing sinus tachycardia heart rate 121. Sternum stable, chest incision clean with dressing clean and dry. Heart hugger in place, patient demonstrating proper use of her heart hugger. Atrial and ventricular epicardial pacemaker wires remain in place. Left leg incisions clean dry and well approximated. No drainage noted. Scattered ecchymotic areas to her left thigh. Knee-high FARZANA hose in place to right leg and Yury wrap from toes to thigh to her left leg. Bilateral lower leg sequential compression devices in place to bilateral lower extremities. Abdomen: Soft, Positive bowel sounds present in all 4 quadrants. Positive bowel movement this a.m. CBGs: 80-111 mg/dL in the last 24 hours. U/O: Adequate. 24 hr Total: Intake & Output 04/05/17 04/06/17 04/07/17 04/08/17 06:59 06:59 06:59 06:59 Intake Total 828.617 430 240 Output Total 2375 190 30 Balance -1546.383 240 -30 240 Weight 50.3 kg 44 kg 43.9 kg Active Medications Albuterol/Ipratropium (Duoneb 0.5 Mg-3 Mg/3 Ml Soln) 3 ml INHALATION RT-Q2H PRN PRN Reason: Shortness Of Breath Or Wheezing Albuterol/Ipratropium (Duoneb 0.5 Mg-3 Mg/3 Ml Soln) 3 ml INHALATION RT-QID [facility] Last Admin: 04/06/17 19:21 Dose: Not Given Aspirin (Aspirin) 325 mg PO DAILY [facility] Last Admin: 04/06/17 08:56 Dose: 325 mg Atorvastatin Calcium (Lipitor) 40 mg PO DAILY [facility] Last Admin: 04/06/17 08:52 Dose: 40 mg Bisacodyl (Dulcolax) 10 mg RECTAL DAILY PRN PRN Reason: Constipation Clopidogrel Bisulfate (Plavix) 75 mg PO DAILY [facility] Last Admin: 04/06/17 08:52 Dose: 75 mg Diltiazem HCl (Cardizem Oral) 30 mg PO QID [facility] Last Admin: 04/06/17 20:37 Dose: 30 mg Heparin Sodium (Porcine) (Heparin) 5,000 unit SQ Q8HR [facility] Last Admin: 04/06/17 23:59 Dose: 5,000 unit Hydralazine HCl (Apresoline) 10 mg IVP Q6HR PRN PRN Reason: Blood Pressure - High Last Admin: 04/05/17 00:22 Dose: 10 mg Magnesium Sulfate/Dextrose 1 (gm/ IV Solution) 100 mls @ 100 mls/hr IVPB Q1H [facility] Stop: 04/07/17 09:59 Insulin Human Lispro (Humalog) 0 unit SQ ACHS [facility] PRN Reason: Protocol Last Admin: 04/07/17 06:34 Dose: Not Given Lisinopril (Zestril) 20 mg PO DAILY [facility] Last Admin: 04/06/17 08:53 Dose: 20 mg Magnesium Hydroxide (Milk Of Magnesia) 2,400 mg PO BID PRN PRN Reason: Constipation Metoclopramide HCl (Reglan) 10 mg IVP Q4H PRN PRN Reason: Nausea And Vomiting Last Admin: 04/04/17 11:21 Dose: 10 mg Metoprolol Tartrate (Lopressor) 100 mg PO BID [facility] Last Admin: 04/06/17 20:38 Dose: 100 mg Miscellaneous Information (Magnesium Per Protocol) 1 each MISCELLANE DAILY PRN ; Protocol PRN Reason: Per Protocol Miscellaneous Information (Phosphorus Per Protocol) 1 each MISCELLANE DAILY PRN ; Protocol PRN Reason: Per Protocol Miscellaneous Information (Potassium Per Protocol) 1 each MISCELLANE DAILY PRN ; Protocol PRN Reason: Per Protocol Miscellaneous Information (Potassium Per Protocol) 1 each MISCELLANE DAILY PRN ; Protocol PRN Reason: Per Protocol Ondansetron HCl (Zofran) 4 mg IVP Q6HR PRN PRN Reason: Nausea And Vomiting Last Admin: 04/04/17 08:38 Dose: 4 mg Pantoprazole Sodium (Protonix) 40 mg PO DAILY [facility] Last Admin: 04/06/17 08:52 Dose: 40 mg Potassium Chloride (K-Dur 20) 20 meq PO Q1HR [facility] Stop: 04/07/17 08:01 Senna/Docusate Sodium (Senokot-S) 2 each PO HS [facility] Last Admin: 04/06/17 20:38 Dose: 2 each Tramadol HCl (Ultram) 50 mg PO QID PRN PRN Reason: Moderate Pain Last Admin: 04/04/17 11:23 Dose: 50 mg Plan: 1. Continue aspirin, statin, Plavix, YURY inhibitor, and beta contreras. Dr. Morales had added Cardizem 30 mg by mouth every 6 hours yesterday 04/06/2017. 2. Continue Toradol, and Ultram for pain control. 3. Magnesium replacement per protocol, potassium replacement per protocol. Magnesium 1.7 today, potassium 3.9 today. 4. Epicardial pacemaker wires removed without incident this a.m. 5. Encourage incentive spirometry use every hour while awake. 6. Increase activity, out of bed to chair, ambulate in room. Physical therapy to follow. 7. Will monitor vital signs, urine output. 8. Blood sugar management per internal medicine service. 9. GI /DVT prophylaxis. 10. More recommendations as patient progresses, discharge the patient will be discharged home today. Epicardial pacemaker wires removed at 7:25 AM, the patient will remain on bedrest for 1 hour post pacemaker wire removal.
[2017-04-07 09:41] VITALS: TEMP 99.3
[2017-04-07 10:05] VITALS: BP 131/88
--- NOTE | 2017-04-07 11:00 | P.DS ---
Providers Date of admission: 04/02/17 05:45 Attending physician: Rik Morales Consults: 04/02/17 13:44 Consult Physician Routine Consulting Provider: Estefany Cherry Consult Reason/Comments: Log Scaler Consult: post cardiac surgery Do you want consulting provider notified?: Yes Consult Physician Routine Consulting Provider: Bri Nelson Consult Reason/Comments: Medical management and blood sugar management Do you want consulting provider notified?: Yes Consult Physician Routine Consulting Provider: Marlen Tripp Consult Reason/Comments: Manager Media Consult: post cardiac surgery Do you want consulting provider notified?: Yes Primary care physician: Adam Gillespie [facility] Course: FINAL DIAGNOSIS: 1.[Symptomatic multivessel coronary artery disease] 2.[Hypertension] 3.[Dyslipidemia] 4.[History of non-ST elevated myocardial infarction in 2011 with stent placement to her proximal left anterior descending coronary artery and proximal circumflex coronary artery.] 5.[Chronic ongoing tobacco dependence] PRINCIPAL PROCEDURE: 1.[Coronary artery bypass grafting 3 with placement of her left internal mammary artery to her left anterior descending coronary artery, a reverse greater saphenous vein graft placed to her posterior descending coronary artery , a reverse greater saphenous vein graft placed to her obtuse marginal coronary artery.] 2.[Endoscopic vein harvest of her right greater saphenous vein.] 3.[Intraoperative transesophageal echocardiogram and epi-aortic ultrasound] HISTORY OF PRESENT ILLNESS: [This is a 47-year-old female patient who is followed by Dr. Medina on an outpatient basis. The patient has a history of coronary artery disease with stent placement to her proximal left anterior descending coronary artery and proximal circumflex coronary artery in 2011. Recently, the patient has had complaints of episodes of chest pain despite medical therapy. Subsequently the patient followed up with her wetland scientist Dr. VC Tripp who recommended an elective cardiac catheterization due to her history and current symptoms. On 03/24/2017 the patient underwent elective heart catheterization which demonstrated a totally occluded right coronary artery, and 80% stenosis to her circumflex coronary artery, and a 70-80% stenosis to her mid left anterior setting coronary artery. Cardiac catheterization results were reviewed with the patient by Dr. VC Tripp and by Dr. Morales from cardiothoracic surgery. The results were also discussed with the patient and an elective coronary artery bypass grafting surgery was recommended. The patient was discharged home on 03/25/2017 and was scheduled for an elective coronary artery bypass grafting surgery.] HOSPITAL COURSE:[ On 04/02/2017 the patient was admitted to [facility], and after obtaining consent and was taken to the operating room where she underwent an elective coronary artery bypass grafting surgery 3 with placement of her left internal mammary artery to her left anterior ascending coronary artery, reverse greater saphenous vein graft placed to her posterior descending coronary artery, a reverse greater saphenous vein graft placed to her obtuse marginal coronary artery. During the open heart surgery the patient had endoscopic vein harvesting of her right greater saphenous vein, she also also underwent intraoperative transesophageal echocardiogram and epi-aortic ultrasound. The patient was subsequently transferred to the cardiovascular intensive care unit where she was recovered, monitored hemodynamically, extubated and where she progressed to cardiac rehabilitation phase 1. She was then transferred to [address] [place] [address] where she was further monitored.] COMPLICATIONS: [ There were no postoperative complications. ] CONSULTATIONS: 1.[ Dr. Nowak for cardiology management] 2.[ Dr. Cherry for pulmonary and ventilator management] 3.[ Dr. Goodwin for medical management] DISCHARGE INSTRUCTIONS: 1. No driving for 4 weeks, or until physician gives their ok. 2. The patient should sleep in their own bed, no medical bed needed. 3. Stairs are not an issue. If the bedroom is upstairs, it is advised that the patient go up at night and down in the morning for the first week. Go slowly, using handrail and take 1 step at a time. 4. FARZANA hose are to be worn for 30 days or until physician discontinues. 5. Heart hugger is to be worn 100% of the time until physician discontinues.( excepet when showering) 6. No lifting, pushing, or pulling more than 10 pounds for 12 weeks. The physician will advise of any restriction changes. 7. The patient is expected to continue the prescribed walking program. 8. Continue pain control per as needed orders. 9. Continue with incentive spirometry and splinting/heart hugger until otherwise directed by the physician. 10. Must shower daily using liquid antibacterial soap and a separate white washcloth for each individual incision. HOME HEALTH SERVICES TO PROVIDE: RN SKILLED HOME CARE SERVICES FOR POST-OP SURGICAL PATIENTS WITH THE FOLLOWING: Coronary Artery Bypass Surgery (CABG), Mitral Valve Replacement/ Repair ( MVR), Aortic Valve Replacement/Repair (AVR) RN TO CONTINUE EDUCATION FROM ``ROAD TO A HEALTH HEART PATIENT EDUCATION MANUAL (GIVEN TO PATIENT IN THE HOSPITAL) MEDICATION RECONCILIATION WITH EDUCATION NEEDED ON FIRST HOME VISIT EMPHASIZE IMPORTANCE OF WEARING BREAST SUPPORT/HEART HUGGER ENCOURAGE USE OF INCENTIVE SPIROMETER 10 X EVERY HOUR WHILE AWAKE ENCOURAGE UTILIZATION OF LOWER EXTREMITY COMPRESSION STOCKINGS/FARZANA HOSE and ELEVATE LEGS ABOVE LEVEL OF HEART WHILE AT REST. ENCOURAGE AMBULATION 3-5x/day INCREASING TOLERATES, WHILE AVOID EXTREMES IN TEMPERATURE FREQUENCY: RN TO OPEN THE PATIENT WITHIN 24 HOURS OF DISCHARGE FROM THE HOSPITAL WITH TELEHEALTH INSTALLED AT [facility] [place], RN TO VISIT 2-3 X A WEEK FOR 4 WEEKS ESTABLISHED BY PATIENT NEEDS. LABORATORY: CBC, CMP TO BE DRAWN ON THE THIRD DAY HOME, 04/10/2017RAN STAT) FAX RESULTS TO [phone] TELEHEALTH PARAMETERS: WEIGHT: NOTIFY MD OF WEIGHT GAIN OF 2 LBS IN 24 HOURS OR 5 LBS IN ONE WEEK HR: NOTIFY MD OF HR <55 BPM OR HR>100 BPM BP: NOTIFY MD IF BP <90/55 OR BP>140/100 O2 SAT: NOTIFY MD IF PO2<93% ON ROOM AIR SEND TELEHEALTH REPORT TO CABINET PROFESSIONAL AND CARDIOVASCULAR SURGEON THE FIRST WEEK OF CARE AND THEN BI-WEEKLY. PLEASE ADDITIONALLY COMMUNICATE ANY ABNORMALS AND NEW FINDINGS TO THE SURGEONS OFFICE [phone]. Plan - Discharge Summary Discharge Medication List Atorvastatin [Lipitor] 40 mg PO HS 03/21/17 [History] Clopidogrel Bisulfate [Clopidogrel] 75 mg PO DAILY 04/01/17 [History] Aspirin 325 mg PO DAILY #30 tab 04/07/17 [Rx] Diltiazem Oral [Cardizem*] 30 mg PO QID #120 tab 04/07/17 [Rx] Lisinopril [Zestril] 20 mg PO DAILY #30 tab 04/07/17 [Rx] Metoprolol Tartrate [Lopressor] 100 mg PO BID #60 tab 04/07/17 [Rx] Pantoprazole [Protonix] 40 mg PO DAILY #30 christin. 04/07/17 [Rx] traMADol HCl [Ultram] 50 mg PO QID PRN #120 tab 04/07/17 [Rx] Follow up Appointment(s)/Referral(s): Estefany Cherry MD [STAFF PHYSICIAN] - 04/29/17 1:30 pm Jyothi Menjivar NPC [Nurse Practitioner] - 04/11/17 3:00 pm Destini Medina MD [Primary Care Provider] - 04/15/17 10:30 am [facility], [NON-STAFF] - 1 Week Rik Morales MD [STAFF PHYSICIAN] - 05/02/17 10:00 am Marlen Tripp MD [STAFF PHYSICIAN] - 04/15/17 2:45 pm
[2017-04-07 11:04] VITALS: BMI 16.6
[2017-04-07] MEDS: IPRATROPIUM-ALBUTEROL 3 ML NEB INHALATION SCH (11:04)
[2017-04-07 15:40] VITALS: PULSE 105
--- NOTE | 2017-04-07 16:08 | P.PN ---
Subjective Principal diagnosis: Status post CABG This is a pleasant 47-year-old female patient who is a patient of Dr. VC Tripp with a known history of coronary artery disease, hypertension, and dyslipidemia, was admitted to the hospital yesterday and underwent CABG.The patient is known to have coronary artery disease with previous LAD stenting and circumflex stenting.She was experiencing chest discomfort consistent with angina. She underwent a heart catheterization in January and that showed severe triple-vessel CAD.She underwent coronary artery bypass grafting yesterday with LIM to LAD, SVG to diagonal, SVG to PDA. Patient continues to be in a sinus tachycardia, calcium channel contreras was added to her medication regime. She is afebrile, she's been up ambulating in the hallway without any difficulty. Objective - Vital Signs Vital signs: Vital Signs Temp 99.3 F 04/07/17 08:00 Pulse 105 H 04/07/17 12:00 Resp 16 04/07/17 08:00 BP 131/88 04/07/17 10:04 Pulse Ox 97 04/07/17 11:51 Intake & Output 04/06/17 04/07/17 04/07/17 18:59 06:59 18:59 Intake Total 440 Output Total 30 Balance -30 440 Weight 43.9 kg 43.9 kg Intake: Intake, IV Titration 200 Amount Magnesium Sulfate-D5w Pmx 200 1 gm In Dextrose/Water 1 100ml.bag @ 100 mls/hr IVPB Q1H [facility] Rx#: [id number] Oral 240 Output: Drainage 30 Left Knee 30 Other: Voiding Method Toilet Toilet # Voids 1 # Bowel Movements 2 ABP, PAP, CO, CI - Last Documented Arterial Blood Pressure 172/78 Pulmonary Artery Pressure 25/13 Cardiac Output 2.8 Cardiac Index 2.0 - Exam PHYSICAL EXAMINATION: HEENT: Head is atraumatic, normocephalic. Pupils equal, round. Neck is supple. There is no elevated jugular venous pressure. HEART EXAMINATION: Heart S1, S2 normal. No murmur or gallop heard. CHEST EXAMINATION: Lungs are clear to auscultation and precussion. No chest wall tenderness is noted on palpation or with deep breathing. ABDOMEN: Soft, nontender. Bowel sounds are heard. No organomegaly noted. EXTREMITIES: 2+ peripheral pulses with no evidence of peripheral edema and no calf tenderness noted]. NEUROLOGIC [patient is awake, alert and oriented -3.] . - Labs CBC & Chem 7: 04/07/17 05:51 04/07/17 05:51 Labs: Abnormal Lab Results - Last 24 Hours (Table) 04/06/17 04/07/17 04/07/17 Range/Units 20:41 02:03 05:51 RBC 2.29 L (3.80-5.40) m/uL Hgb 7.2 L (11.4-16.0) gm/dL Hct 21.2 L (34.0-46.0) % Chloride (98-107) mmol/L POC Glucose (mg/dL) 110 H 111 H (75-99) mg/dL 04/07/17 Range/Units 05:51 RBC (3.80-5.40) m/uL Hgb (11.4-16.0) gm/dL Hct (34.0-46.0) % Chloride 110 H (98-107) mmol/L POC Glucose (mg/dL) (75-99) mg/dL Assessment and Plan (1) S/P CABG (coronary artery bypass graft) Status: Acute (2) History of coronary artery stent placement Status: Acute (3) Hyperlipidemia Status: Acute (4) Hypertension Status: Acute (5) Tobacco abuse Status: Acute Plan: Cardiology standpoint, patient may be able to be discharged home today. We will make her a follow-up appointment to see Dr. VC Tripp in the office post discharge. DNP note has been reviewed, I agree with a documented findings and plan of care. Patient was seen and examined.
--- NOTE | 2017-04-07 17:18 | PN ---
This patient is a 47-year-old female who is postoperative day #5, status post bypass grafting. The patient is doing relatively well, feeling well. There is a chance that she may go home today. She is postoperative day #5. She had a 3-vessel bypass grafting. She also has a history of hyperlipidemia, hypertension and chronic and ongoing tobacco addiction. The patient is not having any pain or issues today. Her breathing is fine. She has been weaned off of oxygen. Current vital signs are reviewed. Temperature is 99.3, heart rate 97, respiratory rate 16, blood pressure 122/92, saturations 97% on room air. Appears in no acute distress. HEENT examination is grossly unremarkable. Mucous membranes are moist. No oral lesions. TMs ( ) normal. NECK: Supple. Full range of motion. No adenopathy or thyromegaly. Cardiovascular examination reveals regular rhythm and rate. S1, S2 normal. There is no S3, S4 or murmur. Lungs are relatively clear. A few scattered mild rhonchi. No wheezes or crackles. ABDOMEN: Soft. Bowel sounds are heard. EXTREMITIES: Intact. No cyanosis, clubbing or edema. Skin is without rash. Labs are reviewed. White count 8.1, hemoglobin 7.2, hematocrit 21.2, platelet count 217,000. Sodium and potassium are normal. Chloride is 110, CO2 22. BUN and creatinine were 16 and 0.62. Medications are reviewed. ASSESSMENT: 1. Postoperative day #5, status post 3-vessel bypass grafting. 2. History of coronary artery disease with previous stent placement. 3. Hyperlipidemia. 4. Hypertension. 5. Chronic and ongoing tobacco use. PLAN: Will continue to follow. No additional recommendations are made. Possible discharge home today.
== END 2017-04-07 15:59 | disposition home health service (06) | DRG 236 ==
LOC: 2ORMAIN 05:45 → 6ICU 12:41 → 6SEL 04-05 16:37
PROVIDERS: ADMIT Surgery; ATTEND Surgery
PROC: 02100Z9 Bypass Coronary Artery, One Artery from Left Internal Mammary, Open Approach (ICD-10-PCS; principal; 2017-04-02 08:00)
PROC: 021109W Bypass Coronary Artery, Two Arteries from Aorta with Autologous Venous Tissue, Open Approach (ICD-10-PCS; principal; 2017-04-02 08:00)
PROC: B246ZZ4 Ultrasonography of Right and Left Heart, Transesophageal (ICD-10-PCS; principal; 2017-04-02 08:00)
PROC: 06BP4ZZ Excision of Right Saphenous Vein, Percutaneous Endoscopic Approach (ICD-10-PCS; principal; 2017-04-02 08:00)
DX: I25.119 Atherosclerotic heart disease of native coronary artery with unspecified angina pectoris (principal); E87.3 Alkalosis; I25.82 Chronic total occlusion of coronary artery; D62 Acute posthemorrhagic anemia; J98.11 Atelectasis; E78.5 Hyperlipidemia, unspecified; F17.200 Nicotine dependence, unspecified, uncomplicated; I10 Essential (primary) hypertension; I25.2 Old myocardial infarction; Z79.02 Long term (current) use of antithrombotics/antiplatelets; Z79.82 Long term (current) use of aspirin; Z79.899 Other long term (current) drug therapy; Z95.5 Presence of coronary angioplasty implant and graft; Z88.5 Allergy status to narcotic agent
CPT/HCPCS: 36430; 36620; 71010; 71020; 80048; 80053; 82150; 82330; 82805; 83690; 83735; 85025; 85027; 85520; 85610; 85730; 86850; 86891; 86900; 86901; 86920; 94002; 94003; 94640; 94760

== ENCOUNTER → 2017-04-11 | Outpatient (CLI) | payer OTHER ==
[2017-04-11 14:46] LABS: ALT 30 U/L (9-52); AST 23 U/L (14-36); Alkaline Phosphatase 82 U/L (38-126); Anion Gap 13 mmol/L; Blood Urea Nitrogen 18 mg/dL (7-17); Carbon Dioxide 26 mmol/L (22-30); Chloride 100 mmol/L (98-107); Glucose 94 mg/dL (74-99); Non-African American GFR(MDRD) >60 (>60 ml/min/1.73 sqM); Potassium 5.1 mmol/L (3.5-5.1); Sodium 139 mmol/L (137-145); Total Bilirubin 0.8 mg/dL (0.2-1.3); Total Protein 6.5 g/dL (6.3-8.2)
[2017-04-11 15:14] LABS: Anisocytosis Slight; Basophils # (A) 0.1 k/uL (0-0.2); Basophils % (A) 1 %; CH 29.9; CHCM 31.2; Eosinophils # (A) 0.6 k/uL (0-0.7); Eosinophils % (A) 4 %; HCT 28.1 % (34.0-46.0); HDW 3.23; HGB 8.6 gm/dL (11.4-16.0); Hypochromasia Moderate; Luc # (Auto) 0.26; Luc % (Auto) 2; Lymphocytes # (A) 2.2 k/uL (1.0-4.8); Lymphocytes % (A) 17 %; MCH 29.6 pg (25.0-35.0); MCHC 30.5 g/dL (31.0-37.0); MCV 96.9 fL (80.0-100.0); Macrocytosis Slight; Mean Platelet Volume 6.9; Monocytes # (A) 0.9 k/uL (0-1.0); Monocytes % (A) 7 %; Neutrophils # (A) 9.3 k/uL (1.3-7.7); Neutrophils % (A) 70 %; WBC 13.3 k/uL (3.8-10.6); WBC (Perox) 14.19
== END | disposition home or self-care (01) ==
LOC: LABWHC1 14:11
PROVIDERS: ATTEND Nurse Practitioner Acute Care
DX: Z48.812 Encounter for surgical aftercare following surgery on the circulatory system (principal)
CPT/HCPCS: 36415; 80053; 85025

== ENCOUNTER 2017-05-12 06:36 | Day surgery (SDC) | payer OTHER ==
[2017-05-12 08:36] VITALS: RESP 14; TEMP 98.1
[2017-05-12 08:49] LABS: INR 1.2 (<1.1); Prothrombin Time 11.9 sec (9.0-12.0)
[2017-05-12 09:24] VITALS: BP 131/91; PULSE 63
--- NOTE | 2017-05-12 09:47 | XR ---
EXAMINATION TYPE: XR chest 1V DATE OF EXAM: 05/12/2017 COMPARISON: 04/29/2017 HISTORY: Postthoracentesis TECHNIQUE: Single frontal view of the chest is obtained. FINDINGS: There is reduction in amount of pleural fluid on the left with underlying COPD, cardiomega ly and postsurgical change. Nodules overlying both lower lung zones most likely in the basis of nippl e shadows. No sizable pneumothorax. IMPRESSION: 1. No sizable pneumothorax 2. Reduction in amount of consolidation and pleural effusion on the left.
--- NOTE | 2017-05-12 10:02 | US ---
EXAMINATION TYPE: US thoracentesis DATE OF EXAM: 05/12/2017 COMPARISON: NONE HISTORY: Pleural effusion. FINDINGS: Maximal barrier technique was utilized. The skin overlying a suitable pocket of fluid was localized and the overlying skin prepped and draped. Lidocaine was used for local anesthesia. Ultras ound was used with sterile technique. A 5 Albanian catheter over guide needle was advanced into the pl eural fluid collection using ultrasound guidance and the catheter advanced, needle removed. Approxim ately 0.35 liter(s) of serous sanguinous fluid was removed. Catheter was withdrawn and hemostasis ac hieved. There is no immediate complication. The patient discharged in stable condition without comp lication. IMPRESSION: STATUS POST ULTRASOUND GUIDED THORACENTESIS, POST PROCEDURE CHEST X-RAY PENDING. THIS [place] OCEDURE WAS PERFORMED BY THE UNDERSIGNED.
[2017-05-12 14:02] LABS: RBC, Body Fluid 53000 /uL
[2017-05-12 14:09] LABS: Body Fluid Comment Few Mesothelial
[2017-05-12 15:55] LABS: Glucose, BF Source Pleural Fluid; LDH, Body Fluid Source Pleural Fluid; T. Protein, Body Fluid Source Pleural Fluid; Total Protein, Body Fluid 4200 mg/dL
== END 2017-05-12 09:50 | disposition home or self-care (01) ==
LOC: RADPROMAIN 06:36
PROVIDERS: ATTEND Internal Medicine
DX: J90 Pleural effusion, not elsewhere classified (principal)
CPT/HCPCS: 32555; 71010; 82945; 83615; 84157; 85049; 85610; 87070; 87075; 87205; 88108; 88305; 89050

== ENCOUNTER 2017-09-02 18:20 | Emergency (ER) | payer OTHER ==
[2017-09-02 18:31] VITALS: BP 127/87; PULSE 82; RESP 18; TEMP 97
--- NOTE | 2017-09-02 18:59 | XR ---
EXAMINATION TYPE: XR foot complete RT DATE OF EXAM: 09/02/2017 CLINICAL HISTORY: Right foot arch pain for 2 days. TECHNIQUE: Frontal, lateral, and oblique images of the right foot are obtained. COMPARISON: None FINDINGS: There is no acute fracture/dislocation evident in the right foot. The joint spaces in the right foot appear within normal limits. No significant calcaneal spurring is seen. Some flexion in the toes is noted. The overlying soft tissue appears unremarkable. IMPRESSION: No significant finding is seen to account for patient's symptoms.
--- NOTE | 2017-09-02 19:09 | ED ---
General Adult HPI - General Chief complaint: Extremity Injury, Lower Stated complaint: Bottom of foot pain Time Seen by Provider: 09/02/17 18:28 Source: patient, RN notes reviewed Mode of arrival: ambulatory Limitations: no limitations - History of Present Illness Initial comments: 47-year-old female presents emergency Department chief complaint of pain to the bottom of the right foot. Patient states every time she steps flat she gets the pain. Patient states that it hurts to touch as well. Patient states she wears heels it feels better. Patient denies any history of this in the past. Patient states that she has walked for her job but she has the rolling type tennis shoes. Patient was concerned due to the pain so she thought that she should be evaluated.Patient denies any recent fever, chills, shortness of breath , chest pain, back pain, abdominal pain, nausea vomiting, numbness or tingling, dysuria or hematuria, constipation or diarrhea, headaches or visual changes, or any other current symptoms. - Related Data Home Medications Medication Instructions Recorded Confirmed Atorvastatin [Lipitor] 40 mg PO HS 03/21/17 05/12/17 Clopidogrel Bisulfate [Clopidogrel] 75 mg PO DAILY 04/01/17 05/05/17 Previous Rx's Medication Instructions Recorded Aspirin 325 mg PO DAILY #30 tab 04/07/17 Diltiazem Oral [Cardizem*] 30 mg PO QID #120 tab 04/07/17 Lisinopril [Zestril] 20 mg PO DAILY #30 tab 04/07/17 Metoprolol Tartrate [Lopressor] 100 mg PO BID #60 tab 04/07/17 Pantoprazole [Protonix] 40 mg PO DAILY #30 tablet. 04/07/17 traMADol HCl [Ultram] 50 mg PO QID PRN #120 tab 04/07/17 Allergies Allergy/AdvReac Type Severity Reaction Status Date / Time codeine Allergy Nausea & Verified 09/02/17 18:27 Vomiting Review of Systems ROS Statement: Those systems with pertinent positive or pertinent negative responses have been documented in the HPI. ROS Other: All systems not noted in ROS Statement are negative. Past Medical History Past Medical History: Coronary Artery Disease (CAD), Chest Pain / Angina, Hyperlipidemia, Hypertension, Myocardial Infarction ([place]) Last Myocardial Infarction Date:: 2011 History of Any Multi-Drug Resistant Organisms: None Reported Past Surgical History: Section, Cholecystectomy, Heart Catheterization , Heart Catheterization With Stent, Hysterectomy, Tonsillectomy Additional Past Surgical History / Comment(s): Open heart surgery Past Anesthesia/Blood Transfusion Reactions: No Reported Reaction Date of Last Stent Placement:: 2011 Past Psychological History: No Psychological Hx Reported Smoking Status: Current every day smoker Past Alcohol Use History: None Reported Past Drug Use History: None Reported - Past Family History Mother Family Medical History: No Reported History Father History Unknown: Yes General Exam - General Exam Comments Initial Comments: General: The patient is awake and alert, in no distress, and does not appear acutely ill. Neck: The neck is supple, there is no tenderness. Cardiovascular: There is a regular rate and rhythm. No murmur, rub or gallop is appreciated. Respiratory: Lungs are clear to auscultation, respirations are non-labored, breath sounds are equal. No wheezes, stridor, rales, or rhonchi. Musculoskeletal: Sensation intact with 2+ pulses. Right extremity. Fund motion of right ankle and right foot. Patient does have pain with full extension the front tenderness to the bottom of the foot. 5 Out of 5 muscle strength testing. Neurological: CN II-XII intact, There are no obvious motor or sensory deficits. Coordination appears grossly intact. Speech is normal. Skin: Skin is warm and dry and no rashes or lesions are noted. Psychiatric: Normal mood and affect. Limitations: no limitations Course Vital Signs 09/02/17 18:28 Temperature 97 F L Pulse Rate 82 Respiratory 18 Rate Blood Pressure 127/87 O2 Sat by Pulse 96 Oximetry Medical Decision Making - Medical Decision Making 47-year-old female presents with right foot pain. This time patient does appear to have a plantar fasciitis. We discussed anti-inflammatory Motrin discussed icing care. Discussed return for hours all questions. Patient's family stated they understood and they are in agreement with this plan. All questions have been answered. They will be discharged. - Radiology Data Radiology results: report reviewed, image reviewed Disposition Clinical Impression: Plantar fasciitis of right foot Disposition: HOME SELF-CARE Condition: Stable Instructions: Plantar Fasciitis (ED) Additional Instructions: Please use medication as discussed. Please follow up with family doctor if symptoms have not improved over the next two days. Please return to the emergency room if your symptoms increase or worsen or for any other concerns. Referrals: Destini Medina MD [Primary Care Provider] - 1-2 days Time of Disposition: 19:08
== END 2017-09-02 19:14 | disposition home or self-care (01) ==
LOC: EC 18:20
DX: M72.2 Plantar fascial fibromatosis (principal); I25.10 Atherosclerotic heart disease of native coronary artery without angina pectoris; E78.5 Hyperlipidemia, unspecified; F17.200 Nicotine dependence, unspecified, uncomplicated; Z79.01 Long term (current) use of anticoagulants; Z79.899 Other long term (current) drug therapy; Z88.5 Allergy status to narcotic agent
CPT/HCPCS: 99283

== ENCOUNTER → 2017-10-15 | Outpatient (CLI) | payer OTHER ==
--- NOTE | 2017-10-15 12:54 | MM ---
Reason for exam: clinical finding. Last mammogram was performed 10 years and 8 months ago. History: Patient is postmenopausal. Excisional biopsy of the right breast, 1993. Indicated problem(s): lump or thickening in the right breast. Physical Findings: Nurse Summary: 2 x 4cm prominent bilateral axillary nodes (nurse ts). MG Diagnostic Mammo w CAD NYDIA Bilateral CC, MLO, and LM view(s) were taken. Prior study comparison: February 20, 2007, CAD bilateral diagnostic mammogram. The breast tissue is extremely dense which could obscure a lesion on mammography. Finding #1: There is a 40 mm circumscribed oval mass in the axilla position of the right breast. Finding #2: There are typically benign vascular, round, linear, grouped and diffuse/scattered calcifications. These results were verbally communicated with the patient and result sheet given to the patient on 10/15/17. ASSESSMENT: Incomplete: need additional imaging evaluation, BI-RAD 0 RECOMMENDATION: Ultrasound of both breasts.
--- NOTE | 2017-10-15 13:12 | USB ---
Reason for exam: additional evaluation requested from abnormal screening. History: Patient is postmenopausal. Excisional biopsy of the right breast, 1993. US Breast BILAT Right breast ultrasound includes all four quadrants, the retroareolar region and axilla. Finding demonstrates a 0.7 x 0.6 x 0.2cm lobular, cystic lesion at 1 o'clock, a 0.8 x 0.9 x 0.5cm solid, hypoechoic lesion with calcifications at 2 o'clock, suspicious, a 0.3 x 0.3 x 0.3cm solid, hypoechoic lesion at 3 o'clock, a 0.8 x 0.7 x 0.4cm solid, hypoechoic lesion at 5 o'clock, questionable lymph node but suspicious, a 0.4 x 0.4 x 0.3cm hypoechoic lesion too small to characterize at 8 o'clock with calcifications, a 0.4 x 0.4 x 0.5cm hypoechoic lesion too small to characterize at 10 o'clock with calcifications, suspicious and a 2.5 x 3.5 x 2.0cm solid, vascular, irregular lesion at the axilla. Left breast ultrasound includes all four quadrants, the retroareolar region and axilla. Finding demonstrates a 0.5 x 0.7 x 0.3cm mixed, hypoechoic lesion with calcifications at 12 o'clock, suspicious, 1.0 x 0.4 x 0.4cm oval, solid, hypoechoic lesion at 1 o'clock, a 0.5 x 0.4 x 0.4cm lesion too small to characterize with calcifications at 3 o'clock, a 0.5 x 0.4 x 0.5cm solid, hypoechoic lesion with calcifications at 4 o'clock (most suspicious on left), a 0.3 x 0.5 x 0.3cm hypoechoic lesion too small to characterize at 8 o'clock and lymph nodes at the axilla, prominent loss of fatty hilum. These results were verbally communicated with the patient and result sheet given to the patient on 10/15/17. ASSESSMENT: Suspicious, BI-RAD 4 RECOMMENDATION: Complex case. Surgical consultation and ultrasound core biopsy of the right breast. (large lesion right axilla). Add'l suspicious areas bilateral breast on mammo and US. Consider MRI correlation after axillary sampling. Called Dr. Medina with mammographic findings and has scheduled an appointment for the patient for 10/20/17 at 10:[address] Moreira. PRELIMINARY REPORT CALLED AND FAXED TO DR. MOREIRA ON 10/15/17. Breast [facility]. [facility]
== END | disposition home or self-care (01) ==
LOC: RADMAMWWP 09:46
PROVIDERS: ATTEND Internal Medicine
DX: N63.31 Unspecified lump in axillary tail of the right breast (principal)
CPT/HCPCS: 76641; G0204

== ENCOUNTER 2018-10-02 15:45 | Emergency (ER) | payer OTHER ==
[2018-10-02 15:54] VITALS: BP 140/98; PULSE 65; RESP 18; TEMP 97.9
[2018-10-02] MEDS ORDERED: DIPH,PERTUS(ACELL)TETVAC-LF 0.5 ML VIAL IM ONE (16:10)
--- NOTE | 2018-10-02 17:21 | ED ---
General Adult HPI - General Chief complaint: Wound/Laceration Stated complaint: lac on finger Time Seen by Provider: 10/02/18 15:56 Source: patient, RN notes reviewed Mode of arrival: ambulatory Limitations: no limitations - History of Present Illness Initial comments: 48-year-old female since to the emergency department for a chief complaint of laceration occurring about 24 hours ago at her work of [employer]. Patient states she was taking out the trash when she felt a piece of glass cut her right finger. Patient states she was not going to be seen for this by her work insisted on her seeing a provider. Patient denies any spreading or streaking redness. She denies any fevers or chills. She denies any difficulty moving the finger. She denies any foreign body sensation. Patient denies any other injuries. She states her tetanus is not up-to-date.Patient has no other complaints at this time including shortness of breath, chest pain, abdominal pain, nausea or vomiting, headache, or visual changes. - Related Data Home Medications Medication Instructions Recorded Confirmed Atorvastatin [Lipitor] 40 mg PO HS 03/21/17 11/11/17 Clopidogrel Bisulfate [Clopidogrel] 75 mg PO DAILY 04/01/17 11/11/17 Previous Rx's Medication Instructions Recorded Aspirin 325 mg PO DAILY #30 tab 04/07/17 Diltiazem Oral [Cardizem*] 30 mg PO QID #120 tab 04/07/17 Lisinopril [Zestril] 20 mg PO DAILY #30 tab 04/07/17 Metoprolol Tartrate [Lopressor] 100 mg PO BID #60 tab 04/07/17 Pantoprazole [Protonix] 40 mg PO DAILY #30 tablet.dr 04/07/17 traMADol HCl [Ultram] 50 mg PO QID PRN #120 tab 04/07/17 Cephalexin [Keflex] 500 mg PO Q6HR 3 Days #12 cap 10/02/18 Allergies Allergy/AdvReac Type Severity Reaction Status Date / Time codeine Allergy Nausea & Verified 11/11/17 12:43 Vomiting Review of Systems ROS Statement: Those systems with pertinent positive or pertinent negative responses have been documented in the HPI. ROS Other: All systems not noted in ROS Statement are negative. Past Medical History Past Medical History: Coronary Artery Disease (CAD), Chest Pain / Angina, Hyperlipidemia, Hypertension, Myocardial Infarction ([place]) Last Myocardial Infarction Date:: 2011 History of Any Multi-Drug Resistant Organisms: None Reported Past Surgical History: Section, Cholecystectomy, Heart Catheterization , Heart Catheterization With Stent, Hysterectomy, Tonsillectomy Additional Past Surgical History / Comment(s): Open heart surgery March 2017 Past Anesthesia/Blood Transfusion Reactions: No Reported Reaction Date of Last Stent Placement:: 2011 Past Psychological History: No Psychological Hx Reported Smoking Status: Current every day smoker Past Alcohol Use History: None Reported Past Drug Use History: None Reported - Past Family History Mother Family Medical History: No Reported History Father History Unknown: Yes General Exam Limitations: no limitations General appearance: alert, in no apparent distress Head exam: Present: atraumatic, normocephalic, normal inspection ENT exam: Present: normal exam, mucous membranes moist Neck exam: Present: normal inspection. Absent: tenderness, meningismus, lymphadenopathy Respiratory exam: Present: normal lung sounds bilaterally. Absent: respiratory distress, wheezes, rales, rhonchi, stridor Cardiovascular Exam: Present: regular rate, normal rhythm, normal heart sounds. Absent: systolic murmur, diastolic murmur, rubs, gallop, clicks Extremities exam: Present: full ROM (Full range of motion of the right second digit including the MCP, PIP, and DIP joints. Full range motion in all digits of the right hand.), normal capillary refill (Capillary refill less than 2 seconds in the right second digit. Radial pulse 2+ in the right upper extremity ), other (There is a small 0.5 cm superficial laceration to the palmar aspects of the PIP joint right second digit. All deep structures intact.). Absent: tenderness (No tenderness of the right digit) Neurological exam: Present: alert, oriented X3, CN II-XII intact Psychiatric exam: Present: normal affect, normal mood Course Vital Signs 10/02/18 15:51 Temperature 97.9 F Pulse Rate 65 Respiratory 18 Rate Blood Pressure 140/98 O2 Sat by Pulse 100 Oximetry Medical Decision Making - Medical Decision Making 48-year-old female presents to the emergency department for chief complaint of laceration to the right second digit PIP joint 24 hours. Patient has full range of motion of the right second digit including MCP, PIP, DIP joint. Laceration appears superficial. All deep structures intact. No evidence of a cellulitic infection. X-ray was ordered to rule out any foreign body material which did not show any acute abnormalities. Patient was started on Keflex as laceration was on the finger. She will monitor for signs of infection and return if these or any other worsening symptoms occur otherwise she will follow- up with [facility]. Disposition Clinical Impression: Laceration Disposition: HOME SELF-CARE Condition: Good Instructions: Laceration (ED) Additional Instructions: Please take antibiotic as directed. Please monitor for any worsening symptoms such as spreading or streaking redness or other signs of infection and return if these occur. Follow-up with primary care for a wound recheck in one to 2 days. Prescriptions: Cephalexin [Keflex] 500 mg PO Q6HR 3 Days #12 cap Is patient prescribed a controlled substance at d/c from ED?: No Referrals: Destini Medina MD [Primary Care Provider] - 1-2 days Time of Disposition: 17:19
--- NOTE | 2018-10-02 17:37 | XR ---
EXAMINATION TYPE: XR finger RT DATE OF EXAM: 10/02/2018 COMPARISON: NONE HISTORY: Laceration second digit TECHNIQUE: 3 views FINDINGS: I see no fracture nor dislocation. There is no sign of a foreign body. Joint spaces are nor mal. IMPRESSION: Negative right index finger exam.
== END 2018-10-02 17:22 | disposition home or self-care (01) ==
LOC: EC 15:45
DX: S61.210A Laceration without foreign body of right index finger without damage to nail, initial encounter (principal); E78.5 Hyperlipidemia, unspecified; I10 Essential (primary) hypertension; I25.10 Atherosclerotic heart disease of native coronary artery without angina pectoris; I25.2 Old myocardial infarction; F17.200 Nicotine dependence, unspecified, uncomplicated; Z88.5 Allergy status to narcotic agent; Z79.899 Other long term (current) drug therapy; Z95.5 Presence of coronary angioplasty implant and graft; Z23 Encounter for immunization; W25.XXXA Contact with sharp glass, initial encounter; Y93.89 Activity, other specified; Y92.049 Unspecified place in boarding-house as the place of occurrence of the external cause; Y99.0 Civilian activity done for income or pay
CPT/HCPCS: 90471; 90715; 99283

== ENCOUNTER 2018-11-06 17:18 | Emergency (ER) | payer OTHER ==
[2018-11-06 17:25] VITALS: BP 130/89; PULSE 77; RESP 18; TEMP 97.6
[2018-11-06] MEDS ORDERED: LIDOCAINE 1%-EPI 1:100,000 20 ML VIAL SQ STA (17:51)
--- NOTE | 2018-11-06 17:58 | ED ---
General Adult HPI - General Chief complaint: Skin/Abscess/Foreign Body Stated complaint: Abcess under arm Source: patient, RN notes reviewed Mode of arrival: ambulatory Limitations: no limitations - History of Present Illness Initial comments: Patient is a 48-year-old female who presents the emergency department with complaints of left armpit pain and swelling for 1 week. She reports that she has had an abscess that needed to be drained in that area in the past. She reports that she is up to date on her tetanus vaccination. Patient denies any recent fever, chills, decreased ROM, shortness of breath, chest pain, back pain , abdominal pain, nausea or vomiting, numbness or tingling, headaches or visual changes, or any other complaints. - Related Data Home Medications Medication Instructions Recorded Confirmed Atorvastatin [Lipitor] 40 mg PO HS 03/21/17 11/11/17 Clopidogrel Bisulfate [Clopidogrel] 75 mg PO DAILY 04/01/17 11/11/17 Previous Rx's Medication Instructions Recorded Aspirin 325 mg PO DAILY #30 tab 04/07/17 Diltiazem Oral [Cardizem*] 30 mg PO QID #120 tab 04/07/17 Lisinopril [Zestril] 20 mg PO DAILY #30 tab 04/07/17 Metoprolol Tartrate [Lopressor] 100 mg PO BID #60 tab 04/07/17 Pantoprazole [Protonix] 40 mg PO DAILY #30 tablet. 04/07/17 traMADol HCl [Ultram] 50 mg PO QID PRN #120 tab 04/07/17 Cephalexin [Keflex] 500 mg PO Q6HR 3 Days #12 cap 10/02/18 Cephalexin [Keflex] 500 mg PO Q6HR 7 Days cap 11/06/18 Sulfamethox-Tmp 800-160Mg [Bactrim 1 tab PO Q12HR 7 Days tab 11/06/18 DS 800-160 mg] Allergies Allergy/AdvReac Type Severity Reaction Status Date / Time codeine Allergy Nausea & Verified 11/06/18 17:25 Vomiting Review of Systems ROS Statement: Those systems with pertinent positive or pertinent negative responses have been documented in the HPI. ROS Other: All systems not noted in ROS Statement are negative. Past Medical History Past Medical History: Coronary Artery Disease (CAD), Chest Pain / Angina, Hyperlipidemia, Hypertension, Myocardial Infarction ([place]) Last Myocardial Infarction Date:: 2011 History of Any Multi-Drug Resistant Organisms: None Reported Past Surgical History: Section, Cholecystectomy, Heart Catheterization , Heart Catheterization With Stent, Hysterectomy, Tonsillectomy Additional Past Surgical History / Comment(s): Open heart surgery March 2017 Past Anesthesia/Blood Transfusion Reactions: No Reported Reaction Date of Last Stent Placement:: 2011 Past Psychological History: No Psychological Hx Reported Smoking Status: Current every day smoker Past Alcohol Use History: None Reported Past Drug Use History: None Reported - Past Family History Mother Family Medical History: No Reported History Father History Unknown: Yes General Exam Limitations: no limitations General appearance: alert, in no apparent distress Head exam: Present: atraumatic, normocephalic Eye exam: Present: normal appearance Respiratory exam: Present: normal lung sounds bilaterally Cardiovascular Exam: Present: regular rate, normal rhythm Extremities exam: Present: full ROM, tenderness (Left axilla with fluctuant mass consistent with an abscess.), normal capillary refill, other (Radial pulses palpable and strong bilaterally.) Neurological exam: Present: alert, oriented X3 Psychiatric exam: Present: normal affect, normal mood Skin exam: Present: warm, dry Course Vital Signs 11/06/18 17:23 Temperature 97.6 F Pulse Rate 77 Respiratory 18 Rate Blood Pressure 130/89 O2 Sat by Pulse 99 Oximetry Procedures - Incision & Drainage Consent Obtained: verbal consent Time Out Performed?: Yes Site: other (Left axilla) Size (cm): 1 (1 cm incision. 4x3 cm abscess.) Anesthetic Used: lidocaine 1%, with epi Amount (mLs): 10 I&D Cleaning Method: Iodine Sterile Field Used?: Yes Scalpel Used: #11 Irrigation Performed?: Yes I&D Drainage Obtained: Pus Packing: Iodoform Culture Obtained?: Yes Patient Tolerated Procedure: well, no complications Medical Decision Making - Medical Decision Making Incision and drainage performed (pus drainage). Aerobic wound culture obtained. Patient prescribed Keflex and Bactrim. Case discussed in detail with attending physician Dr. Toro. Disposition Clinical Impression: Abscess Disposition: HOME SELF-CARE Condition: Good Instructions: Abscess Incision and Drainage (ED) Additional Instructions: Follow-up with your PCP in 2 days. Return to the emergency department or follow -up with your PCP in 2 days for packing removal from abscess. Prescriptions: Cephalexin [Keflex] 500 mg PO Q6HR 7 Days cap Sulfamethox-Tmp 800-160Mg [Bactrim DS 800-160 mg] 1 tab PO Q12HR 7 Days tab Is patient prescribed a controlled substance at d/c from ED?: No Referrals: Destini Medina MD [Primary Care Provider] - 1-2 days
== END 2018-11-06 19:32 | disposition home or self-care (01) ==
LOC: EC 17:18
DX: L02.412 Cutaneous abscess of left axilla (principal); I25.10 Atherosclerotic heart disease of native coronary artery without angina pectoris; E78.5 Hyperlipidemia, unspecified; I25.2 Old myocardial infarction; F17.200 Nicotine dependence, unspecified, uncomplicated; Z95.818 Presence of other cardiac implants and grafts; Z95.5 Presence of coronary angioplasty implant and graft; Z79.02 Long term (current) use of antithrombotics/antiplatelets; Z79.899 Other long term (current) drug therapy; Z88.5 Allergy status to narcotic agent
CPT/HCPCS: 10060; 87070; 87077; 87186; 87205; 99283

== ENCOUNTER 2020-08-25 11:23 | Inpatient (IN) | payer OTHER ==
[2020-08-25] MEDS ORDERED: HEPARIN SOD,PORK IN 0.45% NACL 25,000 UNIT in 0.45% NACL 1 250ML.BAG IV SCH (11:45)
[2020-08-25] MEDS ORDERED: ASPIRIN 81 MG PO STA (11:45)
[2020-08-25] MEDS ORDERED: SODIUM CHLORIDE 0.9% 1,000 ML IV STA (11:45)
[2020-08-25] MEDS ORDERED: HEPARIN SODIUM,PORCINE 5,000 UNIT/ML 1 ML VIAL IV STA (11:45)
--- NOTE | 2020-08-25 11:51 | ED ---
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 please excuse any grammatical, word or spelling errors. This patient was cared for during a federal and state declared state of emergency secondary to Covid 19 Chief Complaint: 50-year-old female told to come to the emergency department for abnormal stress test. History of Present Illness: 50-year-old female she has past medical history myocardial infarction, open heart surgery for coronary artery blockage. She presents today with abnormal cardiac stress test. Patient is stress test done yesterday by cardiology. She reports that the reason for the stress test was because patient was having pressure-like sensation to her chest for the previous 2 or 3 days. Results were available today. She was called earlier this morning told to come directly to the emergency department for abnormal cardiac stress test. Patient has a chest pain at this time. She states she had chest pain yesterday. Patient states in 2017 she had blockage in one of her arteries requiring open heart. Patient denies any coughing. She is a regular tobacco user. The ROS documented in this emergency department record has been reviewed and confirmed by me. Those systems with pertinent positive or negative responses have been documented in the HPI. All other systems are other negative and/or noncontributory. PHYSICAL EXAM: General Impression: Alert and oriented x3, not in acute distress HEENT: Normocephalic atraumatic, extra-ocular movements intact, pupils equal and reactive to light bilaterally, mucous membranes moist. Cardiovascular: Heart regular rate and rhythm Chest: Able to complete full sentences, no retractions, no tachypnea Abdomen: abdomen soft, non-tender, non-distended, no organomegaly Musculoskeletal: Pulses present and equal in all extremities, no peripheral edema Motor: no focal deficits noted Neurological: CN II-XII grossly intact, no focal motor or sensory deficits noted Skin: Intact with no visualized rashes Psych: Normal affect and mood ED course:-year-old female presents to the emergency department for abnormal outpatient cardiac stress test. Patient is asymptomatic at this time. EKG shows diffuse T-wave inversions. Vital signs upon arrival shows blood pressure 199 over 14, rest of vital signs within acceptable limits. Patient's well- appearing at bedside. She denies any chest pain, shortness of breath. She does not have any other atypical symptoms. She reports complete asymptomatology currently. Patient given aspirin and started on heparin. Repeat EKG was obtained showing no dynamic changes. There is persistent large T-wave inversions in the precordial leads, high lateral leads and inferior leads. There is no ST elevation. Case was discussed with Dr. Nowak over the phone. He requests that we contact [facility] to get records of patient's cardiac stress test. [facility] was contacted with audio visual secretary. They do not have published records of the cardiac stress test 3. Case is discussed Dr. Nowak who is willing to see the patient. Patient continues to be asymptomatic. He does not have any dynamic changes seen on her serial EKGs although it does appear to be abnormal for acute ischemia. He is not sure she is well-appearing. Patient be admitted. Patient started on heparin and nitroglycerin paste. EKG interpretation: Ventricular rate 60, normal sinus rhythm, AK interval 32, QRS 80, QTC 482. No AK prolongation, no QTC prolongation. There are diffuse deep T-wave inversions in precordial leads. This appears to be new when compared to EKG from 2017. There is no obvious ST elevations. - Related Data Home Medications Medication Instructions Recorded Confirmed Clopidogrel Bisulfate [Clopidogrel] 75 mg PO DAILY 04/01/17 08/25/20 Isosorbide Mononitrate ER [Imdur] 30 mg PO DAILY 08/25/20 08/25/20 Metoprolol Tartrate [Lopressor] 50 mg PO HS 08/25/20 08/25/20 Metoprolol Tartrate [Lopressor] 75 mg PO DAILY 08/25/20 08/25/20 Nitroglycerin Sl Tabs [Nitrostat] 0.4 mg SUBLINGUAL Q5M PRN 08/25/20 08/25/20 Previous Rx's Medication Instructions Recorded Aspirin 325 mg PO DAILY #30 tab 04/07/17 Allergies Allergy/AdvReac Type Severity Reaction Status Date / Time atorvastatin [From Lipitor] AdvReac Nausea & Verified 08/25/20 12:28 Vomiting codeine AdvReac Nausea & Verified 08/25/20 12:28 Vomiting Review of Systems ROS Statement: Those systems with pertinent positive or pertinent negative responses have been documented in the HPI. ROS Other: All systems not noted in ROS Statement are negative. Past Medical History Past Medical History: Coronary Artery Disease (CAD), Chest Pain / Angina, Hyperlipidemia, Hypertension, Myocardial Infarction ([place]) Last Myocardial Infarction Date:: 2011 History of Any Multi-Drug Resistant Organisms: None Reported Past Surgical History: Section, Cholecystectomy, Heart Catheterization, Heart Catheterization With Stent, Hysterectomy, Tonsillectomy Additional Past Surgical History / Comment(s): Open heart surgery March 2017 Past Anesthesia/Blood Transfusion Reactions: No Reported Reaction Date of Last Stent Placement:: 2011 Past Psychological History: No Psychological Hx Reported Smoking Status: Current every day smoker Past Alcohol Use History: None Reported Past Drug Use History: None Reported - Past Family History Mother Family Medical History: No Reported History Father History Unknown: Yes General Exam Limitations: no limitations Course Vital Signs 08/25/20 08/25/20 11:24 12:05 Temperature 98.2 F Pulse Rate 66 67 Pulse Rate [ 67 Apical] Respiratory 18 20 Rate Blood Pressure 199/104 193/124 O2 Sat by Pulse 100 100 Oximetry Medical Decision Making - Lab Data Result diagrams: 08/25/20 11:38 08/25/20 11:38 Lab Results 08/25/20 08/25/20 08/25/20 Range/Units 11:38 11:38 11:38 WBC 8.9 (3.8-10.6) k/uL RBC 5.19 (3.80-5.40) m/uL Hgb 15.0 (11.4-16.0) gm/dL Hct 44.9 (34.0-46.0) % MCV 86.6 (80.0-100.0) fL MCH 29.0 (25.0-35.0) pg MCHC 33.5 (31.0-37.0) g/dL RDW 13.3 (11.5-15.5) % Plt Count 271 (150-450) k/uL Neutrophils % 64 % Lymphocytes % 26 % Monocytes % 5 % Eosinophils % 3 % Basophils % 1 % Neutrophils # 5.7 (1.3-7.7) k/uL Lymphocytes # 2.4 (1.0-4.8) k/uL Monocytes # 0.5 (0-1.0) k/uL Eosinophils # 0.2 (0-0.7) k/uL Basophils # 0.1 (0-0.2) k/uL PT 10.9 (9.0-12.0) sec INR 1.1 (<1.2) APTT 25.8 (22.0-30.0) sec Sodium 139 (137-145) mmol/L Potassium 3.9 (3.5-5.1) mmol/L Chloride 109 H (98-107) mmol/L Carbon Dioxide 21 L (22-30) mmol/L Anion Gap 9 mmol/L BUN 15 (7-17) mg/dL Creatinine 0.76 (0.52-1.04) mg/dL Est GFR (CKD-EPI)AfAm >90 (>60 ml/min/1.73 sqM) Est GFR (CKD-EPI)NonAf >90 (>60 ml/min/1.73 sqM) Glucose 100 H (74-99) mg/dL Calcium 9.8 (8.4-10.2) mg/dL Magnesium 1.8 (1.6-2.3) mg/dL Total Bilirubin 0.6 (0.2-1.3) mg/dL AST 31 (14-36) U/L ALT 15 (4-34) U/L Alkaline Phosphatase 105 (38-126) U/L Troponin I (0.000-0.034) ng/mL Total Protein 6.4 (6.3-8.2) g/dL Albumin 3.9 (3.5-5.0) g/dL Lipase 205 (23-300) U/L 08/25/20 Range/Units 11:38 WBC (3.8-10.6) k/uL RBC (3.80-5.40) m/uL Hgb (11.4-16.0) gm/dL Hct (34.0-46.0) % MCV (80.0-100.0) fL MCH (25.0-35.0) pg MCHC (31.0-37.0) g/dL RDW (11.5-15.5) % Plt Count (150-450) k/uL Neutrophils % % Lymphocytes % % Monocytes % % Eosinophils % % Basophils % % Neutrophils # (1.3-7.7) k/uL Lymphocytes # (1.0-4.8) k/uL Monocytes # (0-1.0) k/uL Eosinophils # (0-0.7) k/uL Basophils # (0-0.2) k/uL PT (9.0-12.0) sec INR (<1.2) APTT (22.0-30.0) sec Sodium (137-145) mmol/L Potassium (3.5-5.1) mmol/L Chloride (98-107) mmol/L Carbon Dioxide (22-30) mmol/L Anion Gap mmol/L BUN (7-17) mg/dL Creatinine (0.52-1.04) mg/dL Est GFR (CKD-EPI)AfAm (>60 ml/min/1.73 sqM) Est GFR (CKD-EPI)NonAf (>60 ml/min/1.73 sqM) Glucose (74-99) mg/dL Calcium (8.4-10.2) mg/dL Magnesium (1.6-2.3) mg/dL Total Bilirubin (0.2-1.3) mg/dL AST (14-36) U/L ALT (4-34) U/L Alkaline Phosphatase (38-126) U/L Troponin I 0.060 H* (0.000-0.034) ng/mL Total Protein (6.3-8.2) g/dL Albumin (3.5-5.0) g/dL Lipase (23-300) U/L Critical Care Time Critical Care Time: Yes Total Critical Care Time: 33 Disposition Clinical Impression: ACS (acute coronary syndrome) Disposition: ADMITTED IP TO THIS [facility] Condition: Critical Referrals: Destini Medina MD [Primary Care Provider] - 1-2 days Decision Time: 13:52
[2020-08-25 12:04] LABS: Basophils # (A) 0.1 k/uL (0-0.2); Basophils % (A) 1 %; Eosinophils # (A) 0.2 k/uL (0-0.7); Eosinophils % (A) 3 %; HCT 44.9 % (34.0-46.0); Lymphocytes # (A) 2.4 k/uL (1.0-4.8); Lymphocytes % (A) 26 %; MCHC 33.5 g/dL (31.0-37.0); MCV 86.6 fL (80.0-100.0); Monocytes # (A) 0.5 k/uL (0-1.0); Monocytes % (A) 5 %; Neutrophils # (A) 5.7 k/uL (1.3-7.7); Neutrophils % (A) 64 %; Platelet Count 271 k/uL (150-450); RBC 5.19 m/uL (3.80-5.40); RDW 13.3 % (11.5-15.5); WBC 8.9 k/uL (3.8-10.6)
[2020-08-25 12:09] LABS: ALT 15 U/L (4-34); AST 31 U/L (14-36); African American GFR (CKD) >90 (>60 ml/min/1.73 sqM); Albumin 3.9 g/dL (3.5-5.0); Alkaline Phosphatase 105 U/L (38-126); Anion Gap 9 mmol/L; Blood Urea Nitrogen 15 mg/dL (7-17); Calcium 9.8 mg/dL (8.4-10.2); Carbon Dioxide 21 mmol/L (22-30); Chloride 109 mmol/L (98-107); Glucose 100 mg/dL (74-99); Lipase 205 U/L (23-300); Magnesium 1.8 mg/dL (1.6-2.3); Non-African American GFR(CKD) >90 (>60 ml/min/1.73 sqM); Potassium 3.9 mmol/L (3.5-5.1); Sodium 139 mmol/L (137-145); Total Bilirubin 0.6 mg/dL (0.2-1.3); Total Protein 6.4 g/dL (6.3-8.2)
[2020-08-25 12:12] LABS: INR 1.1 (<1.2); Partial Thromboplastin Time 25.8 sec (22.0-30.0); Prothrombin Time 10.9 sec (9.0-12.0)
[2020-08-25] MEDS ORDERED: NITROGLYCERIN SL TABS 0.4 MG TAB SUBLINGUAL PRN ×3 (13:49→17:15)
--- NOTE | 2020-08-25 14:03 | XR ---
EXAMINATION TYPE: XR chest 1V portable DATE OF EXAM: 08/25/2020 CLINICAL HISTORY: Chest pain TECHNIQUE: Portable upright view of the chest obtained COMPARISON: 05/12/2017 chest radiograph FINDINGS: Sternotomy wires. The cardiomediastinal silhouette is within normal limits for size. Pulmo nary vasculature is normal. There is no focal air space opacity, pleural effusion, or pneumothorax se en. The osseous structures are intact. IMPRESSION: No acute cardiopulmonary process.
--- NOTE | 2020-08-25 14:30 | P.CRDCN ---
History of Present Illness Consult date: 08/25/20 Chief complaint: Chest pain History of present illness: This is a pleasant 50-year-old female patient who sees Dr. Guerrero on regular basis with history of coronary artery disease and prior coronary artery that is grafting where in 2016 she received LIM to LAD and SVG to RCA as well as SVG to OM as well as history of hypertension and dyslipidemia and smoking presented to the emergency room complaining of chest discomfort. She was seen recently in our office for further evaluation of chest discomfort and at that point she underwent myocardial perfusion imaging stress test that she was called yesterday that her chest discomfort is of normal and she is to undergo a heart catheterization. She was in her usual state of health until around 2:00 this morning when she woke up from sleep complaining of chest discomfort. The chest discomfort was a pressure on the chest without any radiation to the arms or neck or shoulders and without any associated symptoms of shortness of breath or sweating or dizziness or lightheadedness or syncope. Because of chest discomfort continued she decided to come to the emergency department. The EKG s howed sinus rhythm with deep T-wave inversion concerning for ischemia. Enzymes are abnormal. Currently the patient is on heparin. She is chest pain-free. I advised the patient to undergo a coronary angiogram for further clarification. The procedure in details was explained to the patient did meanwhile we will continue the current medical regimen. I am going to start the patient on anti-ischemic medications as well as get the pressure under control. Pulse 1 echocardiogram was Doppler with the older. We'll continue following up with the patient Past Medical History Past Medical History: Coronary Artery Disease (CAD), Chest Pain / Angina, Hyperlipidemia, Hypertension, Myocardial Infarction ([place]) Last Myocardial Infarction Date:: 2011 History of Any Multi-Drug Resistant Organisms: None Reported Past Surgical History: Section, Cholecystectomy, Heart Catheterization, Heart Catheterization With Stent, Hysterectomy, Tonsillectomy Additional Past Surgical History / Comment(s): Open heart surgery March 2017 Past Anesthesia/Blood Transfusion Reactions: No Reported Reaction Date of Last Stent Placement:: 2011 Past Psychological History: No Psychological Hx Reported Smoking Status: Current every day smoker Past Alcohol Use History: None Reported Past Drug Use History: None Reported - Past Family History Mother Family Medical History: No Reported History Father History Unknown: Yes Medications and Allergies Home Medications Medication Instructions Recorded Confirmed Type Clopidogrel Bisulfate [Clopidogrel] 75 mg PO DAILY 04/01/17 08/25/20 History Aspirin 325 mg PO DAILY #30 tab 04/07/17 08/25/20 Rx Isosorbide Mononitrate ER [Imdur] 30 mg PO DAILY 08/25/20 08/25/20 History Metoprolol Tartrate [Lopressor] 50 mg PO HS 08/25/20 08/25/20 History Metoprolol Tartrate [Lopressor] 75 mg PO DAILY 08/25/20 08/25/20 History Nitroglycerin Sl Tabs [Nitrostat] 0.4 mg SUBLINGUAL Q5M PRN 08/25/20 08/25/20 History Allergies Allergy/AdvReac Type Severity Reaction Status Date / Time atorvastatin [From Lipitor] AdvReac Nausea & Verified 08/25/20 12:28 Vomiting codeine AdvReac Nausea & Verified 08/25/20 12:28 Vomiting Physical Exam Vitals: Vital Signs Temp Pulse Pulse Resp BP Pulse Ox 08/25/20 13:50 53 L 16 185/112 100 08/25/20 12:05 67 67 20 193/124 100 08/25/20 11:24 98.2 F 66 18 199/104 100 Intake and Output 08/24/20 08/25/20 08/25/20 22:59 06:59 14:59 Other: Weight 49.442 kg - Constitutional General appearance: no acute distress - Respiratory Respiratory: bilateral: CTA - Cardiovascular Rhythm: regular Heart sounds: normal: S1, S2 Results 08/25/20 11:38 08/25/20 11:38 Cardiac Enzymes 08/25/20 08/25/20 Range/Units 11:38 11:38 AST 31 (14-36) U/L Troponin I 0.060 H* (0.000-0.034) ng/mL Coagulation 08/25/20 Range/Units 11:38 PT 10.9 (9.0-12.0) sec APTT 25.8 (22.0-30.0) sec CBC 08/25/20 Range/Units 11:38 WBC 8.9 (3.8-10.6) k/uL RBC 5.19 (3.80-5.40) m/uL Hgb 15.0 (11.4-16.0) gm/dL Hct 44.9 (34.0-46.0) % Plt Count 271 (150-450) k/uL Comprehensive Metabolic Panel 08/25/20 Range/Units 11:38 Sodium 139 (137-145) mmol/L Potassium 3.9 (3.5-5.1) mmol/L Chloride 109 H (98-107) mmol/L Carbon Dioxide 21 L (22-30) mmol/L BUN 15 (7-17) mg/dL Creatinine 0.76 (0.52-1.04) mg/dL Glucose 100 H (74-99) mg/dL Calcium 9.8 (8.4-10.2) mg/dL AST 31 (14-36) U/L ALT 15 (4-34) U/L Alkaline Phosphatase 105 (38-126) U/L Total Protein 6.4 (6.3-8.2) g/dL Albumin 3.9 (3.5-5.0) g/dL Current Medications Generic Name Dose Route Start Last Admin Trade Name Freq PRN Reason Stop Dose Admin Aspirin 325 mg 08/26/20 09:00 Aspirin 325 Mg Tab PO DAILY KWESI Sodium Chloride 1,000 mls @ 75 mls/hr 08/25/20 11:45 08/25/20 12:03 Saline 0.9% IV 08/26/20 01:04 75 mls/hr .[id number] STA Administration Heparin Sodium/Sodium Chloride 250 mls @ 5.933 mls/hr 08/25/20 11:45 08/25/20 12:05 25,000 unit/ Sodium Chloride IV 12 units/kg/hr .Q24H KWESI 5.933 mls/hr Administration Protocol 12 UNITS/KG/HR Nitroglycerin 0.4 mg 08/25/20 13:49 Nitroglycerin Sl Tabs 0.4 Mg Tab SUBLINGUAL Q5M PRN Chest Pain Nitroglycerin 1 inch 08/25/20 18:00 Nitroglycerin Oint 1 Inch/Gm Packet TOPICAL Q6HR KWESI Intake and Output 08/24/20 08/25/20 08/25/20 22:59 06:59 14:59 Other: Weight 49.442 kg Patient Weight 08/26/20 06:59 Weight 49.442 kg 08/25/20 11:38 08/25/20 11:38 Assessment and Plan Assessment: Assessment #1 acute non-ST elevation myocardial infarction #2 coronary artery disease and prior bypass surgery #3 hypertension #4 dyslipidemia Plan #1 I advised proceeding with coronary angiogram #2 nitro drip #3 continue heparin IV #4 an echocardiogram was Doppler #5 follow-up with the patient
[2020-08-25] MEDS: NITROGLYCERIN-D5W PMX 50 MG in DEXTROSE/WATER 1 250ML.BAG IV SCH (15:15)
[2020-08-25] MEDS ORDERED: LIDOCAINE 1% INJ 10MG/ML (20 ML MDV) ONE (15:16)
[2020-08-25] MEDS ORDERED: IV FLUID CONTINUATION 800 ML IV ONE (15:24)
[2020-08-25] MEDS ORDERED: VERAPAMIL 2.5 MG/ML 2 ML AMP ONE (15:43)
[2020-08-25] MEDS ORDERED: MIDAZOLAM 2 MG/2 ML VIAL IV ONE (15:44)
[2020-08-25] MEDS ORDERED: fentaNYL (PF) 50 MCG/ML 2 ML AMP ONE (15:45)
[2020-08-25] MEDS ORDERED: fentaNYL (PF) 50 MCG/ML 2 ML AMP IV ONE (15:47)
[2020-08-25] MEDS ORDERED: LIDOCAINE 1% INJ 10MG/ML (20 ML MDV) SQ ONE (15:49)
[2020-08-25] MEDS ORDERED: VERAPAMIL SYRINGE (5 MG/10 ML) INTRAARTER ONE (15:51)
[2020-08-25] MEDS ORDERED: HEPARIN SODIUM 1,000 UN/ML (10ML VL) ONE (16:03)
[2020-08-25] MEDS: NITROGLYCERIN 1000MCG/10ML SYRINGE INTRAARTER ONE ×2 (16:15→16:40)
[2020-08-25] MEDS ORDERED: IOPAMIDOL-370 125ML BTL INJ ONE ×2 (16:18→17:14)
[2020-08-25] MEDS ORDERED: ATROPINE SULFATE 0.1 MG/ML 10ML SYRINGE IV PRN (17:15)
[2020-08-25] MEDS ORDERED: ZOLPIDEM 5 MG TAB PO PRN (17:15)
[2020-08-25] MEDS ORDERED: RX INFO: IV CONTRAST WAS GIVEN 1 EACH MISC MISCELLANE PRN (17:15)
[2020-08-25] MEDS ORDERED: MAG HYDROX/AL HYDROX/SIMETH 30 ML CUP PO PRN (17:15)
[2020-08-25 17:39] LABS: Glucose,Whole Blood 88 mg/dL (75-99)
[2020-08-25] MEDS ORDERED: NITROGLYCERIN OINT 1 INCH/GM PACKET TOPICAL SCH (18:00)
--- NOTE | 2020-08-25 18:17 | P.PRCINT ---
Percutaneous Coronary Int. - Percutaneous Coronary Intervention Percutaneous Coronary Intervention: PROCEDURES PERFORMED: Bilateral coronary angiography, LIM to LAD angiography, SVG to OM and SVG to PDA angiography, PCI of the distal circumflex with a 2.25 x 12 mm Xience PARISA, iFR of circumflex INDICATION: Non-STEMI, unstable angina, abnormal stress test HISTORY: Patient is a pleasant 50-year-old female with history of hypertension, hyperlipidemia, tobacco abuse, COPD and diffuse coronary artery disease who presented to the hospital after unstable angina-type symptoms. She has a history of prior stenting of her OM1, diagonal 1, mid LAD previously with progression of disease including STOCK REPAIRER of RCA and CABG was performed in 2017. Patient had a LIM to LAD, SVG to PDA and SVG to OM 1. She had done fair up until approximately 3 weeks ago when she started having worsening chest pain with any sort of exertion. She was started on antianginal medications and nuclear scan was performed yesterday which showed normal resting perfusion however anterior septal ischemia as well as a large area of inferior ischemia. She does continue to smoke tobacco. She was having worsening chest pain and therefore presented to the ER which showed diffuse inferior and lateral T-wave inversions and very mildly elevated troponins. Currently she is chest pain- free. She was therefore recommended for left heart catheterization. CONSENT:I have discussed the risks, benefits and alternative therapies for the above-mentioned procedure and for both sedation/analgesia as well as necessary blood product administration, if indicated, as they pertain to this patient. The patient has indicated understanding and acceptance of the risks and procedures discussed. PROCEDURE: After the risks, benefits and alternatives of the above mentioned procedure explained in detail with the patient, informed consent was obtained. Patient was taken to the catheterization lab and prepped and draped in usual fashion. 1% lidocaine was used to anesthetize the left radial artery. A 6- Uzbek sheath was placed in the right radial artery using modified Seldinger technique. Left coronary angiography was performed with a 5-Uzbek JL 3.5 catheter and right coronary angiography was performed with a 5-Uzbek JR5 catheter in various views. SVG to PDA angiography was performed with a 6-Uzbek multipurpose catheter, SVG to OM 1 was performed with a 6-Uzbek LCB catheter and the LMI to LAD angiography was performed with a 6-Uzbek IM catheter. There was a distal LIM lesion noted and therefore intra-arterial nitroglycerin was given without improvement in flow. Due to overall diffuse disease with relatively poor targets for repeat intervention other than possibly the PDA, decision was made to perform PCI of the tanacross left system and the attempts to maximize the collaterals to the RCA. The decision was made to intervene on the distal circumflex as this appeared to give some collaterals to the PLV branch. There was consideration of intervening upon the proximal LAD however we did not want to stent over any septals which c ould be utilized with a retrograde STOCK REPAIRER approach. Therefore the decision was made to perform PCI on the distal circumflex. A 6- Uzbek CLS 3.5 guide was used to engage the left main. Heparin was given for an ACT over the 250. A 0.014 BMW wire was advanced into the distal circumflex. The lesion was predilated with a 2.0 x 8 mm balloon. Next a 2.25 x 12 mm Xience drug-eluting stent was placed at 13 tate. There was more proximal disease and the decision was made to iFR the more proximal circumflex to evaluate if this was hemodynamically significant. Therefore a 0.014 iFR PressureWire was adv anced, normalized and advanced distal to the lesion. iFR of the proximal and mid circumflex just distal to the OM 1 resulted at 0.92 without any drift noted on pullback. Therefore the decision was made to end the procedure. The left radial sheath was removed and a TR band was placed with hemostasis achieved. The patient tolerated the procedure well. Patient was transported back to the post catheterization holding area in stable condition. Conscious Sedation: Patient was monitored under the direct supervision of vision of myself for conscious sedation using 1 mg Versed and 25 mcg fentanyl for a total duration of 78 minutes HEMODYNAMICS: Aortic: 178/98 SELECTIVE CORONARY ARTERIOGRAPHY: LEFT MAIN: The left main is a moderate to large caliber vessel which bifurcates into the LAD and circumflex. There is diffuse 20% stenosis. LEFT ANTERIOR DESCENDING CORONARY ARTERY: LAD is a moderate caliber diffusely diseased vessel which wraps around to the apex. There is a proximal LAD 90% stenosis which then gives off a diagonal 1 branch. Diagonal 1 has a proximal stent and then has 100% stenosis after the stent and becomes atretic. After diagonal 1 there is continued 90% mid LAD stenosis which feeds a moderate caliber septal branch. After this moderate caliber septal, LAD does take a tortuous bend with a 90% mid LAD stenosis with competitive flow from the LIM to LAD. LEFT CIRCUMFLEX CORONARY ARTERY: Left circumflex is a moderate caliber vessel. There is diffuse proximal circumflex 30-40% stenosis followed by a 50% stenosis just proximal to the takeoff of OM1. OM1 is moderate caliber and has a proximal stent. More distally there is a tortuous bend, likely at the site of the prior anastomosis with what appears to be a 60-70% stenosis at the site. The distal circumflex has a focal 90% stenosis and gives off 2 more smaller caliber obtuse marginal branches. There are left to right collaterals to the PDA and PLV. RIGHT CORONARY ARTERY: The right coronary artery is a small caliber vessel which gives off a PDA and PLV branch and is the dominant vessel. There is diffuse proximal 40-50% stenosis followed by a mid RCA 80% stenosis. The RCA and gives off a acute marginal branch and then has a 100% mid RCA stenosis with an ambiguous stump. The acute marginal has a mid 80% stenosis. LIM to LAD: The LIM has a mid to distal long tubular 40-50% stenosis which did not improve with nitroglycerin. There is a distal LAD 90% stenosis. There is filling of diagonal 1 as well as collaterals to the PDA. SVG to PDA: occluded SVG to OM1: occluded FINAL IMPRESSION: 1. Diffuse tanacross multivessel CAD as described above including: proximal and mid LAD 90% stenosis, distal LAD 90% stenosis, proximal to mid circumflex 30- 40%, mid circumflex 50% (iFR 0.92), mid OM1 60-70% stenosis at the anastamosis site, distal circumflex 90% stenosis s/p successful PCI, 100% RCA stenosis. 2. Occluded SVG to PDA, SVG to OM1, and 40-50% stenosis of LIM (not improved with nitroglycerin). 3. Non-STEMI with unstable angina symptoms 4. Successful PCI of distal circumflex with a 2.25 x 12mm Xience PARISA. 5. Elevated blood pressure throughout procedure 6. Tobacco abuse PLAN: 1. Aggressive risk factor modification per most recent ACC/AHA guidelines. 2. Patient with relatively poor targets other than PDA, likely a poor redo CABG candidate with continued tobacco abuse and COPD and therefore decision was made to attempt to revascularize the left system and possibly improve collateral flow to the RCA. PCI of distal circumflex was successful. Could consider PCI of p roximal to mid LAD to improve collateral flow however do not want to stent over any possible septals which could be used for retrograde STOCK REPAIRER procedure. Therefore would recommend evaluation for complex STOCK REPAIRER procedure of the RCA. If unable to perform STOCK REPAIRER, could consider PCI of proximal to mid LAD or LIM to distal LAD as distal LAD also supplies collaterals to the PDA. 3. Discussed tobacco cessation.
[2020-08-25] MEDS: METOPROLOL TARTRATE 50 MG TAB PO SCH (20:19)
[2020-08-25] MEDS ORDERED: METOPROLOL TARTRATE 50 MG TAB PO SCH (21:00)
--- NOTE | 2020-08-25 23:34 | P.HPIM ---
History of Present Illness H&P Date: 08/25/20 Chief Complaint: Chest Pain Patient is a 50-year-old male with known history of coronary artery disease status post CABG in 2017 and stent placement, hypertension, hyperlipidemia, history of [place] and currently everyday smoker presents to ER with abnormal stress test. 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 Patient had stress test due to pressure-like sensation in her chest for the past 2 to 3 days. Patient was told to come to ER directly due to abnormal stress test. Patient does have chest discomfort started around 2 AM last night and wok e up from sleep. Pressure-like sensation. No radiation. And is substernal. No shortness of breath. No fever no chills. No cough or sputum collection. EKG showed sinus bradycardia with T inversions in the anterolateral leads Chest x-ray showed no acute process. Laboratory data showed sodium 139, potassium 3.9, BUN 15 and creatinine 0.76 Bicarb is 21 Troponin level is 0.060, 0.059 and liver enzymes are within normal limits. Magnesium 1.8 Review of Systems Constitutional: Patient denies any fever or chills . No generalized weakness or weight loss. Abdomen: Patient denied nausea vomiting and diarrhea and abdominal pain. Cardiovascular: + on and off chest pain without associated short of breath no palpitations. Respiratory: patient denied any cough is from production. No shortness of breath Neurologic: Patient denied any numbness or tingling headache. Musculoskeletal: Patient denies any complaints of joint swelling or deformity. Skin: Negative Psychiatric: Negative Endocrine: No heat or cold intolerance. No recent weight gain. Genitourinary: No dysuria or hematuria. All other 14 point ROS negative except the above Past Medical History Past Medical History: Coronary Artery Disease (CAD), Chest Pain / Angina, Hyperlipidemia, Hypertension, Myocardial Infarction ([place]) Additional Past Medical History / Comment(s): Pt states as a small child she was discovered to have a "small hole in my heart", scoliosis, UTIs Last Myocardial Infarction Date:: 2011 History of Any Multi-Drug Resistant Organisms: None Reported Past Surgical History: Section, Cholecystectomy, Ear Surgery, Heart Catheterization, Heart Catheterization With Stent, Hysterectomy, Tonsillectomy, Tubal Ligation Additional Past Surgical History / Comment(s): PCI with stents 2011, 3 vessel CABG in 2017, ERCP, bilateral myringotomy/tubes as child Past Anesthesia/Blood Transfusion Reactions: No Reported Reaction Date of Last Stent Placement:: 2011 Smoking Status: Current every day smoker - Past Family History Mother Family Medical History: No Reported History Additional Family Medical History / Comment(s): Mother is healthy and is 67yrs old. Father History Unknown: Yes Medications and Allergies Home Medications Medication Instructions Recorded Confirmed Type Clopidogrel Bisulfate [Clopidogrel] 75 mg PO DAILY 04/01/17 08/25/20 History Aspirin 325 mg PO DAILY #30 tab 04/07/17 08/25/20 Rx Isosorbide Mononitrate ER [Imdur] 30 mg PO DAILY 08/25/20 08/25/20 History Nitroglycerin Sl Tabs [Nitrostat] 0.4 mg SUBLINGUAL Q5M PRN 08/25/20 08/25/20 History Atorvastatin [Lipitor] 80 mg PO HS #30 tab 08/29/20 Rx Metoprolol Tartrate [Lopressor] 100 mg PO BID #60 tab 08/29/20 Rx Nitroglycerin Sl Tabs [Nitrostat] 0.4 mg SUBLINGUAL Q5M PRN #30 tab 08/29/20 Rx Ranolazine [Ranexa] 500 mg PO Q12HR #60 tab.er.12h 08/29/20 Rx Spironolactone [Aldactone] 25 mg PO DAILY #30 tab 08/29/20 Rx hydrALAZINE HCL [Apresoline] 50 mg PO TID #90 tab 08/29/20 Rx lisinopriL [Zestril] 20 mg PO BID #60 tab 08/29/20 Rx Allergies Allergy/AdvReac Type Severity Reaction Status Date / Time atorvastatin [From Lipitor] AdvReac Nausea & Verified 08/25/20 12:28 Vomiting codeine AdvReac Nausea & Verified 08/25/20 12:28 Vomiting Physical Exam Vitals: Vital Signs Temp Pulse Pulse Resp BP Pulse Ox 08/25/20 15:17 87 16 185/117 96 08/25/20 13:50 53 L 16 185/112 100 08/25/20 12:05 67 67 20 193/124 100 08/25/20 11:24 98.2 F 66 18 199/104 100 Intake and Output 09/25/20 09/25/20 09/25/20 06:59 14:59 22:59 Other: Weight 49.442 kg 49.442 kg PHYSICAL EXAMINATION: Patient is lying in the bed comfortably, no acute distress, awake alert and oriented.. HEENT: Normocephalic. Neck is supple. Pupils reactive. Nostrils clear. Oral cavity is moist. Ears reveal no drainage. Neck reveals no JVD, carotid bruits, or thyromegaly. CHEST EXAMINATION: Trachea is central. Symmetrical expansion. Lung lopez clear to auscultation and percussion. CARDIAC: Normal S1, S2 with no gallops. No murmurs ABDOMEN: Soft. Bowel sounds normal. No organomegaly. No abdominal bruits. Extremities: reveal no edema. No clubbing or cyanosis Neurologically awake, alert, oriented x3 with well-coordinated movements. No focal deficits noted Skin: No rash or skin lesions. Psychiatric: Coperative. Nonsuicidal Musculoskeletal: No joint swelling or deformity. Normal range of motion. Results CBC & Chem 7: 08/29/20 03:31 08/29/20 03:31 Labs: Abnormal Lab Results - Last 24 Hours (Table) 08/25/20 08/25/20 Range/Units 11:38 11:38 Chloride 109 H (98-107) mmol/L Carbon Dioxide 21 L (22-30) mmol/L Glucose 100 H (74-99) mg/dL Troponin I 0.060 H* (0.000-0.034) ng/mL Thrombosis Risk Factor Assmnt - DVT/VTE Prophylaxis DVT/VTE Prophylaxis: Pharmacologic Prophylaxis ordered - Choose All That Apply Any of the Below Risk Factors Present?: Yes Each Factor Represents 1 point: Age 41-60 years Other Risk Factors: No Other congenital or acquired thrombophilia - If yes, enter type in comment: No Thrombosis Risk Factor Assessment Total Risk Factor Score: 1 Thrombosis Risk Factor Assessment Level: Low Risk Assessment and Plan Assessment: Acute non-ST elevated [place] T wave inversions in the anterolateral leads Abnormal stress test in the paper counter's office Coronary artery disease with history of stent placement History of coronary artery bypass graft in 2017 Hypertension Hyperlipidemia Ongoing nicotine addiction DVT prophylaxis Plan: Patient was started on heparin drip and continue with telemetry monitoring and serial troponins. Cardiology was consulted and was taken to [facility] immediately. Started on nitro drip. Continue with aspirin, beta-contreras and statins. Follow-up closely. Time with Patient: Greater than 30
[2020-08-26 05:03] LABS: Basophils % (A) 1 %; Eosinophils # (A) 0.2 k/uL (0-0.7); Eosinophils % (A) 3 %; HCT 41.6 % (34.0-46.0); HGB 14.1 gm/dL (11.4-16.0); Lymphocytes # (A) 1.9 k/uL (1.0-4.8); Lymphocytes % (A) 26 %; MCH 29.5 pg (25.0-35.0); MCHC 33.8 g/dL (31.0-37.0); MCV 87.5 fL (80.0-100.0); Mean Platelet Volume 8.1; Monocytes # (A) 0.5 k/uL (0-1.0); Monocytes % (A) 7 %; Neutrophils # (A) 4.3 k/uL (1.3-7.7); Neutrophils % (A) 61 %; Platelet Count 219 k/uL (150-450); RBC 4.76 m/uL (3.80-5.40); RDW 13.3 % (11.5-15.5)
[2020-08-26 05:14] LABS: African American GFR (CKD) >90 (>60 ml/min/1.73 sqM); Anion Gap 7 mmol/L; Blood Urea Nitrogen 12 mg/dL (7-17); Calcium 9.1 mg/dL (8.4-10.2); Carbon Dioxide 22 mmol/L (22-30); Chloride 108 mmol/L (98-107); Cholesterol 100 mg/dL (<200); Glucose 91 mg/dL (74-99); HDL Cholesterol 47 mg/dL (40-60); LDL Cholesterol,Calculated 42 mg/dL (0-99); Magnesium 1.7 mg/dL (1.6-2.3); Non-African American GFR(CKD) >90 (>60 ml/min/1.73 sqM); Potassium 3.6 mmol/L (3.5-5.1); Sodium 137 mmol/L (137-145); Triglycerides 55 mg/dL (<150)
[2020-08-26] MEDS ORDERED: Magnesium Replacement Protocol 1 EACH MISC MISCELLANE PRN (05:18)
[2020-08-26] MEDS ORDERED: Potassium Replacement Protocol 1 EACH MISC MISCELLANE PRN (05:19)
[2020-08-26] MEDS: MAGNESIUM SULFATE-D5W PMX 1 GM in DEXTROSE/WATER 1 100ML.BAG IVPB SCH ×2 (05:24→06:17)
[2020-08-26] MEDS ORDERED: POTASSIUM CHLORIDE ER 20 MEQ TAB.ER PO SCH (06:00)
[2020-08-26] MEDS: ISOSORBIDE MONONITRATE ER 30 MG TAB.ER.24H PO SCH (06:36)
--- NOTE | 2020-08-26 06:59 | P.PN ---
Subjective Progress Note Date: 08/26/20 Principal diagnosis: Acute coronary syndrome This is a pleasant 58-year-old female patient with coronary artery disease and prior coronary artery bypass grafting where she received LIM into LAD and SVG to LCx as well as SVG to PDA presented to the hospital complaining of chest discomfort with EKG changes concerning for severe coronary artery disease and also with abnormal cardiac enzymes consistent with acute coronary syndrome beach she underwent an emergent heart catheterization and that revealed severe two- vessel CAD with disease in the LAD distal to LIM anastomosis as well as occluded SVG to LCx and occluded SVG to RCA. She underwent successful stenting of the cowlitz left circumflex coronary artery with a good angiographic results. She was seen this morning August [id number]. She is asymptomatic from a cardiovascular standpoint overview. She continues to be on nitro drip at this point. Beside that she is on dual antiplatelet therapy be she is not on any statin. She is not on any CASSY inhibitor as well. She is on metoprolol. At this point we'll try to wean the patient from nitro drip at the same time I am going to initiate lisinopril at 5 mg by mouth twice a day and also add Ranexa to the current medical regimen. Also I am going to start the patient with high intensity statin at 80 mg by mouth daily at bedtime. We'll continue following up with her. An echocardiogram was Doppler was ordered as well. Objective - Vital Signs Vital signs: Vital Signs Temp 97.7 F 08/26/20 04:00 Pulse 58 L 08/26/20 06:00 Resp 15 08/26/20 06:00 BP 152/98 08/26/20 06:00 Pulse Ox 95 08/26/20 06:00 Intake & Output 08/25/20 08/25/20 08/26/20 06:59 18:59 06:59 Intake Total 351.50 250.175 Output Total 800 Balance 351.50 -549.825 Weight 49.442 kg 50.1 kg Intake: IV 145 240 0.9NS 20 240 Intake, IV Titration 6.50 10.175 Amount Nitroglycerin-D5w Pmx 50 6.50 10.175 mg In Dextrose/Water 1 250ml.bag @ 5 MCG/MIN 1.5 mls/hr IV .Q24H [facility] Rx#: [id number] Oral 200 Output: Urine 800 - Constitutional General appearance: Present: no acute distress - Respiratory Respiratory: bilateral: CTA - Cardiovascular Heart sounds: normal: S1, S2 Abnormal Heart Sounds: Present: systolic murmur - Labs CBC & Chem 7: 08/26/20 04:38 08/26/20 04:38 Labs: Abnormal Lab Results - Last 24 Hours (Table) 08/25/20 08/25/20 08/25/20 Range/Units 11:38 11:38 14:53 Chloride 109 H (98-107) mmol/L Carbon Dioxide 21 L (22-30) mmol/L Glucose 100 H (74-99) mg/dL Troponin I 0.060 H* 0.059 H* (0.000-0.034) ng/mL 08/25/20 08/26/20 Range/Units 21:09 04:38 Chloride 108 H (98-107) mmol/L Carbon Dioxide (22-30) mmol/L Glucose (74-99) mg/dL Troponin I 0.050 H* (0.000-0.034) ng/mL Assessment and Plan Assessment: Assessment #1 severe two-vessel coronary artery disease and status post CABG #2 status post a stenting of the left circumflex #3 acute coronary syndrome #4 hypertension #5 dyslipidemia #6 significant history of smoking Plan #1 continue dual antiplatelet therapy #2 start high intensity statin #3 wean the patient from nitroglycerin #4 start CASSY inhibitor was lisinopril #5 start Ranexa #6 follow up on the echocardiogram
[2020-08-26] MEDS: ASPIRIN 81 MG PO SCH (08:01)
[2020-08-26] MEDS: lisinopriL 5 MG TAB PO SCH ×2 (08:02→20:17)
[2020-08-26] MEDS: CLOPIDOGREL 75 MG TAB PO SCH (08:02)
[2020-08-26] MEDS: RANOLAZINE 500 MG TAB.ER.12H PO SCH ×2 (08:49→20:17)
[2020-08-26] MEDS ORDERED: ONDANSETRON 4 MG/2 ML VIAL IVP PRN (08:58)
[2020-08-26] MEDS ORDERED: ASPIRIN 325 MG TAB PO SCH (09:00)
[2020-08-26] MEDS ORDERED: METOPROLOL TARTRATE 25 MG TAB PO SCH (09:00)
[2020-08-26] MEDS ORDERED: METOPROLOL TARTRATE 50 MG TAB PO SCH (09:00)
[2020-08-26] MEDS: ACETAMINOPHEN TAB 325 MG TAB PO PRN ×2 (09:24→16:21)
--- NOTE | 2020-08-26 13:00 | ECHOF ---
Referral Reason:NSTEMI MEASUREMENTS -------- HEIGHT: 157.5 cm WEIGHT: 49.9 kg BP: 154/101 IVSd: 1.5 cm (0.6 - 1.1) LVIDd: 2.9 cm (3.9 - 5.3) LVPWd: 1.2 cm (0.6 - 1.1) IVSs: 1.6 cm LVIDs: 2.1 cm LVPWs: 1.3 cm LA Diam: 2.4 cm (2.7 - 3.8) LAESV Index (A-L): 17.78 ml/m Ao Diam: 2.6 cm (2.0 - 3.7) AV Cusp: 1.4 cm (1.5 - 2.6) MV EXCURSION: 18.850 mm (> 18.000) MV EF SLOPE: 72 mm/s (70 - 150) EPSS: 0.5 cm MV E Gregory: 0.48 m/s MV DecT: 171 ms MV A Gregory: 0.55 m/s MV E/A Ratio: 0.88 RAP: 5.00 mmHg RVSP: 11.77 mmHg TAPSE: 14.58 mm FINDINGS -------- Sinus rhythm. This was a technically good study. The left ventricular size is normal. There is moderate concentric left ventricular hypertrophy. O verall left ventricular systolic function is low-normal with, an EF between 50 - 55 %. The diastoli c filling pattern is normal for the age of the patient 13.20. The right ventricle is normal in size. The left atrial size is normal. Normal LA size by volume 22+/-6 ml/m2. The right atrial size is normal. Trace amount of aortic regurgitation. The mitral valve leaflets are mildly thickened. Mild mitral annular calcification present. Mild m itral regurgitation is present. There is minimal mitral valve prolapse. Mild tricuspid regurgitation present. Right ventricular systolic pressure is normal at < 35 mmHg. There is no pulmonic regurgitation present. The aortic root size is normal. There is no pericardial effusion. CONCLUSIONS -------- 1. There is moderate concentric left ventricular hypertrophy. 2. Overall left ventricular systolic function is low-normal with, an EF between 50 - 55 %. 3. The diastolic filling pattern is normal for the age of the patient 13.20 4. The right ventricle is normal in size. 5. The left atrial size is normal. 6. Normal LA size by volume 22+/-6 ml/m2. 7. The right atrial size is normal. 8. Trace amount of aortic regurgitation. 9. The mitral valve leaflets are mildly thickened. 10. Mild mitral annular calcification present. 11. Mild mitral regurgitation is present. 12. There is minimal mitral valve prolapse. 13. Mild tricuspid regurgitation present. 14. There is no pericardial effusion. [employer]: Kelsie Noble RDCS
[2020-08-26 14:08] VITALS: BMI 20.2
[2020-08-26] MEDS: ATORVASTATIN 80 MG TAB PO SCH (20:17)
[2020-08-26] MEDS: METOPROLOL TARTRATE 50 MG TAB PO SCH (20:17)
[2020-08-27 03:56] LABS: African American GFR (CKD) >90 (>60 ml/min/1.73 sqM); Anion Gap 5 mmol/L; Basophils % (A) 1 %; Blood Urea Nitrogen 9 mg/dL (7-17); Calcium 9.1 mg/dL (8.4-10.2); Carbon Dioxide 24 mmol/L (22-30); Chloride 107 mmol/L (98-107); Eosinophils # (A) 0.2 k/uL (0-0.7); Eosinophils % (A) 2 %; Glucose 108 mg/dL (74-99); HCT 39.1 % (34.0-46.0); HGB 12.7 gm/dL (11.4-16.0); Lymphocytes # (A) 1.5 k/uL (1.0-4.8); Lymphocytes % (A) 20 %; MCH 28.4 pg (25.0-35.0); MCHC 32.5 g/dL (31.0-37.0); MCV 87.2 fL (80.0-100.0); Mean Platelet Volume 7.9; Monocytes # (A) 0.5 k/uL (0-1.0); Monocytes % (A) 7 %; Neutrophils # (A) 4.9 k/uL (1.3-7.7); Neutrophils % (A) 68 %; Non-African American GFR(CKD) >90 (>60 ml/min/1.73 sqM); Platelet Count 204 k/uL (150-450); Potassium 3.6 mmol/L (3.5-5.1); RBC 4.49 m/uL (3.80-5.40); RDW 12.9 % (11.5-15.5); Sodium 136 mmol/L (137-145); WBC 7.2 k/uL (3.8-10.6)
[2020-08-27] MEDS ORDERED: POTASSIUM CHLORIDE ER 20 MEQ TAB.ER PO SCH (05:00)
[2020-08-27] MEDS: PANTOPRAZOLE 40 MG TABLET PO SCH (06:33)
[2020-08-27] MEDS: RANOLAZINE 500 MG TAB.ER.12H PO SCH ×2 (06:54→21:23)
[2020-08-27] MEDS: CLOPIDOGREL 75 MG TAB PO SCH (06:54)
[2020-08-27] MEDS: ASPIRIN 81 MG PO SCH (06:54)
[2020-08-27] MEDS: lisinopriL 10 MG TAB PO SCH ×2 (06:54→21:23)
[2020-08-27] MEDS: METOPROLOL TARTRATE 50 MG TAB PO SCH ×2 (06:54→21:23)
[2020-08-27] MEDS: SPIRONOLACTONE 25 MG TAB PO SCH (06:54)
--- NOTE | 2020-08-27 07:09 | P.PN ---
Subjective Progress Note Date: 08/27/20 Principal diagnosis: Acute coronary syndrome This is a pleasant 58-year-old female patient with coronary artery disease and prior coronary artery bypass grafting where she received LIM into LAD and SVG to LCx as well as SVG to PDA presented to the hospital complaining of chest discomfort with EKG changes concerning for severe coronary artery disease and also with abnormal cardiac enzymes consistent with acute coronary syndrome beach she underwent an emergent heart catheterization and that revealed severe two- vessel CAD with disease in the LAD distal to LIM anastomosis as well as occluded SVG to LCx and occluded SVG to RCA. She underwent successful stenting of the [place] left circumflex coronary artery with a good angiographic results. The patient was seen today August [id number]. She remains asymptomatic without any symptoms of chest pain or chest discomfort. Hemodynamically she continues to be hypertensive and she continues to be on nitro drip at this poi nt. I am going to increase the dose of metoprolol 200 mg by mouth twice a day along with increasing the dose of lisinopril to 10 mg by mouth twice a day and also add Aldactone to the current medical regimen. We will attempt to wean the patient from the nitro drip. Echo revealed preserved left ventricular systolic function. The blood work was reviewed and showed normal CBC as well as normal BMP. Objective - Vital Signs Vital signs: Vital Signs Temp 98 F 08/27/20 04:00 Pulse 65 08/27/20 07:00 Resp 16 08/27/20 07:00 BP 150/111 08/27/20 07:00 Pulse Ox 96 08/27/20 07:00 Intake & Output 08/26/20 08/27/20 08/27/20 18:59 06:59 18:59 Intake Total 276.540 261.77 20 Output Total 600 300 450 Balance -323.460 -38.23 -430 Weight 50.1 kg 48.3 kg Intake: IV 240 240 20 0.9NS 240 240 20 Intake, IV Titration 36.540 21.77 Amount Nitroglycerin-D5w Pmx 50 36.540 21.77 mg In Dextrose/Water 1 250ml.bag @ 5 MCG/MIN 1.5 mls/hr IV .Q24H [facility] Rx#: [id number] Output: Urine 600 300 450 Other: # Voids 0 0 # Bowel Movements 1 - Constitutional General appearance: Present: no acute distress - Respiratory Respiratory: bilateral: diminished - Cardiovascular Rhythm: regular Heart sounds: normal: S1, S2 - Labs CBC & Chem 7: 08/27/20 03:14 08/27/20 03:14 Labs: Abnormal Lab Results - Last 24 Hours (Table) 08/27/20 Range/Units 03:14 Sodium 136 L (137-145) mmol/L Glucose 108 H (74-99) mg/dL Assessment and Plan Assessment: Assessment #1 severe two-vessel coronary artery disease and status post CABG #2 status post a stenting of the left circumflex #3 acute coronary syndrome #4 hypertension #5 dyslipidemia #6 significant history of smoking Plan #1 continue dual antiplatelet therapy #2 continue high intensity statin #3 wean the patient from nitro drip #4 increase the dose of metoprolol #5 increase the dose of lisinopril #6 add Aldactone
[2020-08-27] MEDS: ISOSORBIDE MONONITRATE ER 30 MG TAB.ER.24H PO SCH (07:43)
[2020-08-27] MEDS: NITROGLYCERIN-D5W PMX 50 MG in DEXTROSE/WATER 1 250ML.BAG IV SCH (16:24)
[2020-08-27] MEDS: ATORVASTATIN 80 MG TAB PO SCH (21:23)
--- NOTE | 2020-08-27 21:37 | P.PN ---
Subjective Progress Note Date: 08/26/20 Principal diagnosis: Acute non-ST elevated [place] Patient is a 50-year-old male with known history of coronary artery disease status post CABG in 2017 and stent placement, hypertension, hyperlipidemia, history of [place] and currently everyday smoker presents to ER with abnormal stress test. 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 Patient had stress test due to pressure-like sensation in her chest for the past 2 to 3 days. Patient was told to come to ER directly due to abnormal stress test. Patient does have chest discomfort started around 2 AM last night and woke up from sleep. Pressure-like sensation. No radiation. And is substernal. No shortness of breath. No fever no chills. No cough or sputum collection. EKG showed sinus bradycardia with T inversions in the anterolateral leads Chest x-ray showed no acute process. Laboratory data showed sodium 139, potassium 3.9, BUN 15 and creatinine 0.76 Bicarb is 21 Troponin level is 0.060, 0.059 and liver enzymes are within normal limits. Magnesium 1.8 08/26/2020 Patient is currently lying in the bed comfortably. Patient does have intermittent chest pains and blood pressure is elevated and has been being 170s. Patient is being continued on nitro drip. Cardiac catheterization showed diffuse [place] multivessel CAD. Patient did have successful PCI to distal circumflex. No complaints of shortness of breath. No cough or sputum production. No nausea vomiting. No dizziness or lightheadedness. Laboratory data reviewed. LDL 42 Current medications reviewed. Objective - Vital Signs Vital signs: Vital Signs Temp 98.2 F 08/26/20 20:00 Pulse 68 08/26/20 21:00 Resp 21 08/26/20 21:00 BP 158/108 08/26/20 21:00 Pulse Ox 97 08/26/20 21:00 Intake & Output 08/26/20 08/26/20 08/27/20 06:59 18:59 06:59 Intake Total 250.175 276.540 60 Output Total 800 600 0 Balance -549.825 -323.460 60 Weight 50.1 kg 50.1 kg Intake: IV 240 240 60 0.9NS 240 240 60 Intake, IV Titration 10.175 36.540 Amount Nitroglycerin-D5w Pmx 50 10.175 36.540 mg In Dextrose/Water 1 250ml.bag @ 5 MCG/MIN 1.5 mls/hr IV .Q24H [facility] Rx#: [id number] Output: Urine 800 600 0 Other: # Voids 0 0 - Exam PHYSICAL EXAMINATION: Patient is lying in the bed comfortably, no acute distress, awake alert and oriented.. HEENT: Normocephalic. Neck is supple. Pupils reactive. Nostrils clear. Oral cavity is moist. Ears reveal no drainage. Neck reveals no JVD, carotid bruits, or thyromegaly. CHEST EXAMINATION: Trachea is central. Symmetrical expansion. Lung lopez clear to auscultation and percussion. CARDIAC: Normal S1, S2 with no gallops. No murmurs ABDOMEN: Soft. Bowel sounds normal. No organomegaly. No abdominal bruits. Extremities: reveal no edema. No clubbing or cyanosis Neurologically awake, alert, oriented x3 with well-coordinated movements. No focal deficits noted Skin: No rash or skin lesions. Psychiatric: Coperative. Nonsuicidal Musculoskeletal: No joint swelling or deformity. Normal range of motion. - Labs CBC & Chem 7: 08/27/20 03:14 08/27/20 03:14 Labs: Abnormal Lab Results - Last 24 Hours (Table) 08/25/20 08/26/20 Range/Units 21:09 04:38 Chloride 108 H (98-107) mmol/L Troponin I 0.050 H* (0.000-0.034) ng/mL Assessment and Plan Assessment: Acute non-ST elevated CO Status post PCI to distal circumflex. T wave inversions in the anterolateral leads Abnormal stress test in the parking meter servicer's office Coronary artery disease with history of stent placement History of coronary artery bypass graft in 2017 Uncontrolled Hypertension Hyperlipidemia Ongoing nicotine addiction DVT prophylaxis Plan: Patient is being continued on telemetry monitoring. Currently on nitro drip. Currently on metoprolol. Aspirin Plavix and high intensity statins. Cardiology is on board. Continue to monitor the patient in the MICU. Time with Patient: Greater than 30
--- NOTE | 2020-08-27 21:39 | P.PN ---
Subjective Progress Note Date: 08/27/20 Principal diagnosis: Acute non-ST elevated [place] Patient is a 50-year-old male with known history of coronary artery disease status post CABG in 2017 and stent placement, hypertension, hyperlipidemia, history of [place] and currently everyday smoker presents to ER with abnormal stress test. 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 Patient had stress test due to pressure-like sensation in her chest for the past 2 to 3 days. Patient was told to come to ER directly due to abnormal stress test. Patient does have chest discomfort started around 2 AM last night and woke up from sleep. Pressure-like sensation. No radiation. And is substernal. No shortness of breath. No fever no chills. No cough or sputum collection. EKG showed sinus bradycardia with T inversions in the anterolateral leads Chest x-ray showed no acute process. Laboratory data showed sodium 139, potassium 3.9, BUN 15 and creatinine 0.76 Bicarb is 21 Troponin level is 0.060, 0.059 and liver enzymes are within normal limits. Magnesium 1.8 08/26/2020 Patient is currently lying in the bed comfortably. Patient does have intermittent chest pains and blood pressure is elevated and has been being 170s. Patient is being continued on nitro drip. Cardiac catheterization showed diffuse [place] multivessel CAD. Patient did have successful PCI to distal circumflex. No complaints of shortness of breath. No cough or sputum production. No nausea vomiting. No dizziness or lightheadedness. Laboratory data reviewed. LDL 42 08/27/2020 Patient currently lying in the bed comfortably. Awake alert 13. Denies any complaints of chest pain. Patient is nitro drip. Blood pressure is in 150s. Added lisinopril and spironolactone along with metoprolol. Cardiology is following closely. Patient was also started Ranexa due to recurrent chest pains. Maximal medical therapy was recommended. Status post PCI to distal circumflex. No nausea vomiting. No dizziness lightheadedness. Current medications reviewed. Objective - Vital Signs Vital signs: Vital Signs Temp 98.7 F 08/27/20 16:00 Pulse 65 08/27/20 19:00 Resp 20 08/27/20 19:00 BP 171/99 08/27/20 19:00 Pulse Ox 95 08/27/20 19:00 Intake & Output 08/27/20 08/27/20 08/28/20 06:59 18:59 06:59 Intake Total 261.77 277.280 23.185 Output Total 300 1050 0 Balance -38.23 -772.720 23.185 Weight 48.3 kg Intake: IV 240 240 20 0.9NS 240 240 20 Intake, IV Titration 21.77 37.280 3.185 Amount Nitroglycerin-D5w Pmx 50 21.77 37.280 3.185 mg In Dextrose/Water 1 250ml.bag @ 5 MCG/MIN 1.5 mls/hr IV .Q24H [facility] Rx#: [id number] Output: Urine 300 1050 0 Other: # Voids 0 0 0 # Bowel Movements 1 - Exam PHYSICAL EXAMINATION: Patient is lying in the bed comfortably, no acute distress, awake alert and oriented.. HEENT: Normocephalic. Neck is supple. Pupils reactive. Nostrils clear. Oral cavity is moist. Ears reveal no drainage. Neck reveals no JVD, carotid bruits, or thyromegaly. CHEST EXAMINATION: Trachea is central. Symmetrical expansion. Lung lopez clear to auscultation and percussion. CARDIAC: Normal S1, S2 with no gallops. No murmurs ABDOMEN: Soft. Bowel sounds normal. No organomegaly. No abdominal bruits. Extremities: reveal no edema. No clubbing or cyanosis Neurologically awake, alert, oriented x3 with well-coordinated movements. No focal deficits noted Skin: No rash or skin lesions. Psychiatric: Coperative. Nonsuicidal Musculoskeletal: No joint swelling or deformity. Normal range of motion. - Labs CBC & Chem 7: 08/27/20 03:14 08/27/20 03:14 Labs: Abnormal Lab Results - Last 24 Hours (Table) 08/27/20 Range/Units 03:14 Sodium 136 L (137-145) mmol/L Glucose 108 H (74-99) mg/dL Assessment and Plan Assessment: Acute non-ST elevated [place] Status post PCI to distal circumflex. T wave inversions in the anterolateral leads Abnormal stress test in the manager clinical informatics's office Coronary artery disease with history of stent placement History of coronary artery bypass graft in 2017 Uncontrolled Hypertension Hyperlipidemia Ongoing nicotine addiction DVT prophylaxis Plan: Patient is being continued on telemetry monitoring. Currently on nitro drip. Currently on metoprolol. Aspirin Plavix and high intensity statins. Cardiology is on board. Continue to monitor the patient in the MICU. Time with Patient: Greater than 30
[2020-08-28 04:19] LABS: Basophils # (A) 0.1 k/uL (0-0.2); Basophils % (A) 1 %; Eosinophils # (A) 0.2 k/uL (0-0.7); Eosinophils % (A) 2 %; HCT 37.7 % (34.0-46.0); HGB 12.2 gm/dL (11.4-16.0); Lymphocytes # (A) 1.9 k/uL (1.0-4.8); Lymphocytes % (A) 27 %; MCH 28.5 pg (25.0-35.0); MCHC 32.5 g/dL (31.0-37.0); MCV 87.8 fL (80.0-100.0); Mean Platelet Volume 8.3; Monocytes # (A) 0.5 k/uL (0-1.0); Monocytes % (A) 6 %; Neutrophils # (A) 4.6 k/uL (1.3-7.7); Neutrophils % (A) 63 %; Platelet Count 203 k/uL (150-450); RBC 4.29 m/uL (3.80-5.40); RDW 13.2 % (11.5-15.5); WBC 7.3 k/uL (3.8-10.6)
[2020-08-28 04:29] LABS: ALT 12 U/L (4-34); AST 28 U/L (14-36); African American GFR (CKD) >90 (>60 ml/min/1.73 sqM); Albumin 3.2 g/dL (3.5-5.0); Alkaline Phosphatase 93 U/L (38-126); Anion Gap 5 mmol/L; Blood Urea Nitrogen 13 mg/dL (7-17); Calcium 9.1 mg/dL (8.4-10.2); Carbon Dioxide 21 mmol/L (22-30); Chloride 108 mmol/L (98-107); Glucose 85 mg/dL (74-99); Non-African American GFR(CKD) 84 (>60 ml/min/1.73 sqM); Potassium 4.2 mmol/L (3.5-5.1); Sodium 134 mmol/L (137-145); Total Bilirubin 0.5 mg/dL (0.2-1.3); Total Protein 5.4 g/dL (6.3-8.2)
[2020-08-28] MEDS: PANTOPRAZOLE 40 MG TABLET PO SCH (07:30)
[2020-08-28] MEDS: ASPIRIN 81 MG PO SCH (08:47)
[2020-08-28] MEDS: RANOLAZINE 500 MG TAB.ER.12H PO SCH ×2 (08:47→20:54)
[2020-08-28] MEDS: lisinopriL 10 MG TAB PO SCH ×2 (08:47→20:54)
[2020-08-28] MEDS: CLOPIDOGREL 75 MG TAB PO SCH (08:48)
[2020-08-28] MEDS: SPIRONOLACTONE 25 MG TAB PO SCH (08:48)
[2020-08-28] MEDS: METOPROLOL TARTRATE 50 MG TAB PO SCH ×2 (08:48→20:55)
[2020-08-28] MEDS: ISOSORBIDE MONONITRATE ER 30 MG TAB.ER.24H PO SCH (08:48)
--- NOTE | 2020-08-28 10:35 | PN ---
PROGRESS NOTE Mrs Reyes is a 50-year-old female with a known history of coronary artery disease status post coronary artery bypass grafting he had occluded graft, underwent a came in with acute an acute coronary syndrome underwent cardiac catheterization and stenting of the left circumflex by Dr. Guerrero. She is feeling well today. She is denies any chest pain, her breathing has been stable. She denies any dizziness, palpitation. She denies any nausea. She is in sinus mechanism. Her blood pressure has been on the higher side. She had an echocardiogram performed on Friday that revealed ejection fraction of 50% to 55% with no significant valvular regurgitation. She continues to be at this time on Lipitor 80 mg daily, aspirin once a day, Plavix 75 mg daily, isosorbide mononitrate 30 mg daily, Zestril 10 mg twice a day, metoprolol tartrate 100 mg twice a day. She is off her IV nitroglycerin. She is on spironolactone 25 mg daily, and Ranexa 500 mg 500 mg twice a day. PHYSICAL EXAMINATION: Blood pressure 138/80 with a heart in the 60s. LUNGS: Clear heart rhythm S1, S2. No S3. No rub. ABDOMEN: Soft, nontender. EXTREMITIES: No edema. LAB DATA: BUN and creatinine 13 and 0.8, potassium 4.2, hemoglobin 12.2. IMPRESSION: 1. Acute coronary syndrome, status post stenting of left circumflex. 2. Status post coronary bypass grafting. 3. Hypertension. 4. Hyperlipidemia. 5. History of chronic tobacco use. RECOMMENDATION: From the cardiac standpoint, will continue present therapy, increase her activity. If she remains stable, I would expect she should be able to be discharged home today and followed as an outpatient with Dr. Guerrero. MMODL / IJN: [id number] /
[2020-08-28] MEDS: hydrALAZINE HCL 25 MG TAB PO SCH ×2 (12:04→20:54)
[2020-08-28] MEDS: NITROGLYCERIN-D5W PMX 50 MG in DEXTROSE/WATER 1 250ML.BAG IV SCH (15:31)
[2020-08-28] MEDS: ACETAMINOPHEN TAB 325 MG TAB PO PRN (15:41)
--- NOTE | 2020-08-28 15:50 | P.PN ---
Subjective 50-year-old male with known history of coronary artery disease status post CABG in 2017 and stent placement, hypertension, hyperlipidemia, history of [place] and currently everyday smoker presents to ER with abnormal stress test. 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 Patient had stress test due to pressure-like sensation in her chest for the past 2 to 3 days. Patient was told to come to ER directly due to abnormal stress test. Patient does have chest discomfort started around 2 AM last night and woke up from slee p. Pressure-like sensation. No radiation. And is substernal. No shortness of breath. No fever no chills. No cough or sputum collection. EKG showed sinus bradycardia with T inversions in the anterolateral leads Chest x-ray showed no acute process. Laboratory data showed sodium 139, potassium 3.9, BUN 15 and creatinine 0.76 Bicarb is 21 Troponin level is 0.060, 0.059 and liver enzymes are within normal limits. Magnesium 1.8 08/26/2020 Patient is currently lying in the bed comfortably. Patient does have intermittent chest pains and blood pressure is elevated and has been being 170s. Patient is being continued on nitro drip. Cardiac catheterization showed diffuse [place] multivessel CAD. Patient did have successful PCI to distal circumflex. No complaints of shortness of breath. No cough or sputum production. No nausea vomiting. No dizziness or lightheadedness. Laboratory data reviewed. LDL 42 08/27/2020 Patient currently lying in the bed comfortably. Awake alert 13. Denies any complaints of chest pain. Patient is nitro drip. Blood pressure is in 150s. Added lisinopril and spironolactone along with metoprolol. Cardiology is following closely. Patient was also started Ranexa due to recurrent chest pains. Maximal medical therapy was recommended. Status post PCI to distal circumflex. No nausea vomiting. No dizziness lightheadedness. 08/28/2020 Patient is clinically doing well now chest pain-free blood pressures well controlled IV nitro drip was discontinued patient the was started on oral antidepressant medications will be monitored today. Lisinopril and Aldactone are being added along with metoprolol nitro drip is being discontinued at this time . Constitutional: Denied any fatigue denied any fever. Cardio vascular: denied any chest pain, palpitations Gastrointestinal denied any nausea vomiting Pulmonary: Denied any shortness of breath cough Neurologic denied any new focal deficits All inpatient medications were reviewed and appropriate changes in these medications as dictated in the interval history and assessment and plan. Objective - Vital Signs Vital signs: Vital Signs Temp 98.2 F 08/28/20 12:00 Pulse 68 08/28/20 15:00 Resp 17 08/28/20 15:00 BP 136/84 08/28/20 15:00 Pulse Ox 96 08/28/20 15:00 Intake & Output 08/27/20 08/28/20 08/28/20 18:59 06:59 18:59 Intake Total 277.280 251.945 180 Output Total 8375 833 9983 Balance -772.720 -148.055 -1020 Weight 48.7 kg Intake: IV 240 240 180 0.9NS 240 240 180 Intake, IV Titration 37.280 11.945 Amount Nitroglycerin-D5w Pmx 50 37.280 11.945 mg In Dextrose/Water 1 250ml.bag @ 5 MCG/MIN 1.5 mls/hr IV .Q24H [facility] Rx#: [id number] Output: Urine 5761 732 2131 Other: # Voids 0 0 # Bowel Movements 1 - Exam PHYSICAL EXAMINATION: GENERAL: The patient is alert and oriented x3, not in any acute distress. Well developed, well nourished. HEENT: Pupils are round and equally reacting to light. EOMI. No scleral icterus. No conjunctival pallor. Normocephalic, atraumatic. No pharyngeal erythema. No thyromegaly. CARDIOVASCULAR: S1 and S2 present. No murmurs, rubs, or gallops. PULMONARY: Chest is clear to auscultation, no wheezing or crackles. ABDOMEN: Soft, nontender, nondistended, normoactive bowel sounds. No palpable organomegaly. MUSCULOSKELETAL: No joint swelling or deformity. EXTREMITIES: No cyanosis, clubbing, or pedal edema. NEUROLOGICAL: Gross neurological examination did not reveal any focal deficits. SKIN: No rashes. - Labs CBC & Chem 7: 08/28/20 03:09 08/28/20 03:09 Labs: Abnormal Lab Results - Last 24 Hours (Table) 08/28/20 Range/Units 03:09 Sodium 134 L (137-145) mmol/L Chloride 108 H (98-107) mmol/L Carbon Dioxide 21 L (22-30) mmol/L Total Protein 5.4 L (6.3-8.2) g/dL Albumin 3.2 L (3.5-5.0) g/dL Assessment and Plan Plan: Acute non-ST elevated [place] Status post PCI to distal circumflex. Patient is presently under antiplatelet therapy beta contreras Aldactone and statin along wit h lisinopril. Patient has significant occlusions in the grafts which was stented Coronary artery disease with history of CABG and multiple stents in the past Uncontrolled Hypertension Hyperlipidemia Ongoing nicotine addiction: Counseling was provided DVT prophylaxis
[2020-08-28] MEDS: ATORVASTATIN 80 MG TAB PO SCH (20:54)
[2020-08-29 04:19] LABS: Basophils # (A) 0.1 k/uL (0-0.2); Basophils % (A) 1 %; Eosinophils # (A) 0.2 k/uL (0-0.7); Eosinophils % (A) 3 %; HCT 41.3 % (34.0-46.0); HGB 13.5 gm/dL (11.4-16.0); Lymphocytes # (A) 2.5 k/uL (1.0-4.8); Lymphocytes % (A) 33 %; MCH 28.9 pg (25.0-35.0); MCHC 32.8 g/dL (31.0-37.0); MCV 87.9 fL (80.0-100.0); Mean Platelet Volume 8.1; Monocytes # (A) 0.5 k/uL (0-1.0); Monocytes % (A) 6 %; Neutrophils # (A) 4.3 k/uL (1.3-7.7); Neutrophils % (A) 56 %; Platelet Count 186 k/uL (150-450); RBC 4.69 m/uL (3.80-5.40); RDW 13.1 % (11.5-15.5); WBC 7.7 k/uL (3.8-10.6)
[2020-08-29 04:34] LABS: ALT 14 U/L (4-34); AST 30 U/L (14-36); African American GFR (CKD) >90 (>60 ml/min/1.73 sqM); Albumin 3.5 g/dL (3.5-5.0); Alkaline Phosphatase 103 U/L (38-126); Anion Gap 8 mmol/L; Blood Urea Nitrogen 15 mg/dL (7-17); Calcium 9.6 mg/dL (8.4-10.2); Carbon Dioxide 22 mmol/L (22-30); Chloride 106 mmol/L (98-107); Glucose 92 mg/dL (74-99); Non-African American GFR(CKD) >90 (>60 ml/min/1.73 sqM); Potassium 4.4 mmol/L (3.5-5.1); Sodium 136 mmol/L (137-145); Total Bilirubin 0.4 mg/dL (0.2-1.3); Total Protein 5.8 g/dL (6.3-8.2)
[2020-08-29 05:05] VITALS: PULSE 73
[2020-08-29] MEDS: PANTOPRAZOLE 40 MG TABLET PO SCH (06:52)
[2020-08-29] MEDS: METOPROLOL TARTRATE 50 MG TAB PO SCH (07:54)
[2020-08-29] MEDS: hydrALAZINE HCL 25 MG TAB PO SCH (07:54)
[2020-08-29] MEDS: RANOLAZINE 500 MG TAB.ER.12H PO SCH (07:54)
[2020-08-29] MEDS: CLOPIDOGREL 75 MG TAB PO SCH (07:55)
[2020-08-29] MEDS: ASPIRIN 81 MG PO SCH (07:55)
[2020-08-29] MEDS: ISOSORBIDE MONONITRATE ER 30 MG TAB.ER.24H PO SCH (07:55)
[2020-08-29] MEDS: SPIRONOLACTONE 25 MG TAB PO SCH (07:55)
[2020-08-29] MEDS ORDERED: lisinopriL 20 MG TAB PO SCH (09:00)
[2020-08-29 09:13] VITALS: BP 155/101; RESP 16; TEMP 98.2
--- NOTE | 2020-08-29 10:08 | PN ---
PROGRESS NOTE Mrs. Reyes is a 50-year-old female with a history of hypertension, history of coronary artery disease who presented with non ST-segment elevation myocardial infarction, underwent cardiac catheterization and stenting of the left circumflex. She is doing well this morning. She denies any chest pain. Her breathing is stable. She denies any dizziness or palpitations. She denies any nausea. She continues to be on aspirin once a day, Lipitor 80 mg daily, Plavix 75 mg daily, hydralazine 25 mg twice a day, lisinopril 10 mg twice a day, isosorbide mononitrate 30 mg daily, metoprolol tartrate 100 mg twice a day, Ranexa 500 mg twice a day and spironolactone 25 mg daily. PHYSICAL EXAMINATION: Blood pressure has been running in the 130s to 150s with a diastolic up to the 100's. LUNGS: Clear. Heart regular rate and rhythm. S1, S2. No S3 with systolic murmur. No diastolic murmur. No rub. ABDOMEN: Soft and nontender. EXTREMITIES: No edema. LAB DATA: Revealed BUN and creatinine 15 and 0.7, potassium 4.4, sodium of 136. Her hemoglobin is 13.5. IMPRESSION: 1. Status post stenting of the left circumflex. 2. Status post coronary artery bypass grafting with occluded graft. 3. Hypertension. 4. Hyperlipidemia. RECOMMENDATIONS: I will increase her Zestril to 20 mg twice a day. Otherwise, increase her activity. I would expect she should be able to be discharged home today and followed as an outpatient with Dr. Guerrero. HELIO / NADIA: [id number] /
--- NOTE | 2020-08-29 12:50 | P.DS ---
Providers Date of admission: 08/25/20 13:49 Attending physician: Erwin Bowie Consults: 08/25/20 12:00 Consult Physician Stat Consulting Provider: Avery Nowak Consult Reason/Comments: abnormal stress test outpatient Do you want consulting provider notified?: Already Contacted 08/25/20 17:15 Consult Physician Routine Consulting Provider: [facility] Consult Reason/Comments: Post Interventional patient Do you want consulting provider notified?: Already Contacted Primary care physician: Adam Gillespie [facility], [place] Course: 50-year-old male with known history of coronary artery disease status post CABG in 2017 and stent placement, hypertension, hyperlipidemia, history of CO and currently everyday smoker presents to ER with abnormal stress test. 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 Patient had stress test due to pressure-like sensation in her chest for the past 2 to 3 days. Patient was told to come to ER directly due to abnormal stress test. Patient does have chest discomfort started around 2 AM last night and woke up from sleep. Pressure-like sensation. No radiation. And is substernal. No shortness of breath. No fever no chills. No cough or sputum collection. EKG showed sinus bradycardia with T inversions in the anterolateral leads Chest x-ray showed no acute process. Laboratory data showed sodium 139, potassium 3.9, BUN 15 and creatinine 0.76 Bicarb is 21 Troponin level is 0.060, 0.059 and liver enzymes are within normal limits. Magnesium 1.8 08/26/2020 Patient is currently lying in the bed comfortably. Patient does have intermittent chest pains and blood pressure is elevated and has been being 170s. Patient is being continued on nitro drip. Cardiac catheterization showed diffuse port gamble multivessel CAD. Patient did have successful PCI to distal circumflex. No complaints of shortness of breath. No cough or sputum production. No nausea vomiting. No dizziness or lightheadedness. Laboratory data reviewed. LDL 42 08/27/2020 Patient currently lying in the bed comfortably. Awake alert 13. Denies any complaints of chest pain. Patient is nitro drip. Blood pressure is in 150s. Added lisinopril and spironolactone along with metoprolol. Cardiology is following closely. Patient was also started Ranexa due to recurrent chest pains. Maximal medical therapy was recommended. Status post PCI to distal circumflex. No nausea vomiting. No dizziness lightheadedness. 08/28/2020 Patient is clinically doing well now chest pain-free blood pressures well controlled IV nitro drip was discontinued patient the was started on oral antidepressant medications will be monitored today. Lisinopril and Aldactone are being added along with metoprolol nitro drip is being discontinued at this time . 08/29/2020 No overnight events patient is clinically doing well will be discharged today. Hydralazine was added to her regimen because of uncontrolled blood pressure. PHYSICAL EXAMINATION: GENERAL: The patient is alert and oriented x3, not in any acute distress. Well developed, well nourished. HEENT: Pupils are round and equally reacting to light. EOMI. No scleral icterus. No conjunctival pallor. Normocephalic, atraumatic. No pharyngeal erythema. No thyromegaly. CARDIOVASCULAR: S1 and S2 present. No murmurs, rubs, or gallops. PULMONARY: Chest is clear to auscultation, no wheezing or crackles. ABDOMEN: Soft, nontender, nondistended, normoactive bowel sounds. No palpable organomegaly. MUSCULOSKELETAL: No joint swelling or deformity. EXTREMITIES: No cyanosis, clubbing, or pedal edema. NEUROLOGICAL: Gross neurological examination did not reveal any focal deficits. SKIN: No rashes. Assessment and Plan Plan: Acute non-ST elevated CO Status post PCI to distal circumflex. Patient is presently under antiplatelet therapy beta contreras Aldactone and statin along with lisinopril. Patient has significant occlusions in the grafts which was stented Coronary artery disease with history of CABG and multiple stents in the past Uncontrolled Hypertension Hyperlipidemia Ongoing nicotine addiction: Counseling was provided Patient Condition at Discharge: Critical Plan - Discharge Summary Discharge Rx Participant: No New Discharge Prescriptions: New Spironolactone [Aldactone] 25 mg PO DAILY #30 tab hydrALAZINE HCL [Apresoline] 50 mg PO TID #90 tab Atorvastatin [Lipitor] 80 mg PO HS #30 tab Metoprolol Tartrate [Lopressor] 100 mg PO BID #60 tab Nitroglycerin Sl Tabs [Nitrostat] 0.4 mg SUBLINGUAL Q5M PRN #30 tab PRN Reason: Chest Pain Ranolazine [Ranexa] 500 mg PO Q12HR #60 tab.er.12h lisinopriL [Zestril] 20 mg PO BID #60 tab Continue Clopidogrel Bisulfate [Clopidogrel] 75 mg PO DAILY Aspirin 325 mg PO DAILY #30 tab Nitroglycerin Sl Tabs [Nitrostat] 0.4 mg SUBLINGUAL Q5M PRN PRN Reason: Chest Pain Isosorbide Mononitrate ER [Imdur] 30 mg PO DAILY Discontinued Metoprolol Tartrate [Lopressor] 50 mg PO HS Metoprolol Tartrate [Lopressor] 75 mg PO DAILY Discharge Medication List Clopidogrel Bisulfate [Clopidogrel] 75 mg PO DAILY 04/01/17 [History] Aspirin 325 mg PO DAILY #30 tab 04/07/17 [Rx] Isosorbide Mononitrate ER [Imdur] 30 mg PO DAILY 08/25/20 [History] Nitroglycerin Sl Tabs [Nitrostat] 0.4 mg SUBLINGUAL Q5M PRN 08/25/20 [History] Atorvastatin [Lipitor] 80 mg PO HS #30 tab 08/29/20 [Rx] Metoprolol Tartrate [Lopressor] 100 mg PO BID #60 tab 08/29/20 [Rx] Nitroglycerin Sl Tabs [Nitrostat] 0.4 mg SUBLINGUAL Q5M PRN #30 tab 08/29/20 [Rx] Ranolazine [Ranexa] 500 mg PO Q12HR #60 tab.er.12h 08/29/20 [Rx] Spironolactone [Aldactone] 25 mg PO DAILY #30 tab 08/29/20 [Rx] hydrALAZINE HCL [Apresoline] 50 mg PO TID #90 tab 08/29/20 [Rx] lisinopriL [Zestril] 20 mg PO BID #60 tab 08/29/20 [Rx] Follow up Appointment(s)/Referral(s): Destini Medina MD [Primary Care Provider] - 3 Days (Please call for followup appt per office staff, needs updated info) Sloan Guerrero DO [STAFF PHYSICIAN] - 09/11/20 Patient Instructions/Handouts: Heart Attack (DC), Left Heart Catheterization (DC) Discharge Disposition: HOME SELF-CARE
== END 2020-08-29 10:55 | disposition home or self-care (01) | DRG 247 ==
LOC: EC 11:23 → 3SCARD 13:49 → 2SICU 17:12
PROVIDERS: ADMIT Internal Medicine; ATTEND Internal Medicine
PROC: B2111ZZ Fluoroscopy of Multiple Coronary Arteries using Low Osmolar Contrast (ICD-10-PCS; principal; 2020-08-25 14:45)
PROC: B2131ZZ Fluoroscopy of Multiple Coronary Artery Bypass Grafts using Low Osmolar Contrast (ICD-10-PCS; principal; 2020-08-25 14:45)
PROC: 027034Z Dilation of Coronary Artery, One Artery with Drug-eluting Intraluminal Device, Percutaneous Approach (ICD-10-PCS; principal; 2020-08-25 14:45)
DX: I21.4 Non-ST elevation (NSTEMI) myocardial infarction (principal); I25.810 Atherosclerosis of coronary artery bypass graft(s) without angina pectoris; F17.200 Nicotine dependence, unspecified, uncomplicated; E78.5 Hyperlipidemia, unspecified; I10 Essential (primary) hypertension; I25.10 Atherosclerotic heart disease of native coronary artery without angina pectoris; J44.9 Chronic obstructive pulmonary disease, unspecified; R00.0 Tachycardia, unspecified; Z79.02 Long term (current) use of antithrombotics/antiplatelets; I25.2 Old myocardial infarction; Z79.82 Long term (current) use of aspirin; Z79.899 Other long term (current) drug therapy; Z90.710 Acquired absence of both cervix and uterus; Z88.5 Allergy status to narcotic agent; Z88.8 Allergy status to other drugs, medicaments and biological substances; Z98.891 History of uterine scar from previous surgery; Z90.49 Acquired absence of other specified parts of digestive tract; Z95.5 Presence of coronary angioplasty implant and graft; Z87.440 Personal history of urinary (tract) infections; Z95.1 Presence of aortocoronary bypass graft; Z98.890 Other specified postprocedural states
CPT/HCPCS: 36415; 71045; 80048; 80053; 80061; 83690; 83735; 84484; 85025; 85347; 85610; 85730; 93005; 93306; 93455; 93571; 96365; 96366; 99291

== ENCOUNTER → 2020-11-09 | Outpatient (CLI) | payer OTHER ==
[2020-11-09 10:32] LABS: HGB 13.5 gm/dL (11.4-16.0); MCH 30.8 pg (25.0-35.0); MCHC 32.9 g/dL (31.0-37.0); MCV 93.6 fL (80.0-100.0); Mean Platelet Volume 7.6; Platelet Count 273 k/uL (150-450); RBC 4.38 m/uL (3.80-5.40); RDW 13.8 % (11.5-15.5); WBC 7.4 k/uL (3.8-10.6)
[2020-11-09 15:25] LABS: INR 1.04 (0.90-1.11); Prothrombin Time 11.2 sec (9.9-11.9)
[2020-11-09 16:46] LABS: African American GFR (CKD) 55.4 (60.0-200.0); Anion Gap 8.7 mmol/L (4.00-12.00); BUN/Creat Ratio 22.31 Ratio (12.00-20.00); Calcium 10.1 mg/dL (8.7-10.3); Carbon Dioxide 21.3 mmol/L (21.6-31.8); Magnesium 1.7 mg/dL (1.5-2.4); Non-African American GFR(CKD) 47.8 (60.0-200.0); Potassium 4.9 mmol/L (3.5-5.5)
== END | disposition home or self-care (01) ==
LOC: LABWHC1 09:48
PROVIDERS: ATTEND Internal Medicine Interventional Cardiology
DX: I25.118 Atherosclerotic heart disease of native coronary artery with other forms of angina pectoris (principal)
CPT/HCPCS: 80048; 83735; 85027; 85610; 36415; U0003; C9803

== ENCOUNTER → 2020-11-16 | Outpatient (CLI) | payer OTHER | END | disposition home or self-care (01) | LOC: LABWHC1 10:53 | PROVIDERS: ATTEND Internal Medicine Interventional Cardiology | DX: Z01.812 Encounter for preprocedural laboratory examination (principal); Z20.828 Contact with and (suspected) exposure to other viral communicable diseases | CPT/HCPCS: U0003; C9803 ==

== ENCOUNTER 2022-02-27 15:10 | Emergency (ER) | payer OTHER, BC ==
[2022-02-27 16:24] VITALS: TEMP 99.1
[2022-02-27 16:57] LABS: Glucose,Whole Blood 89 mg/dL (75-99)
[2022-02-27] MEDS ORDERED: SODIUM CHLORIDE 0.9% 500 ML 500 ML IV STA (21:54)
[2022-02-27 22:35] LABS: Albumin 4.2 g/dL (3.5-5.0); Calcium 9.1 mg/dL (8.4-10.2); Magnesium 1.8 mg/dL (1.6-2.3); Total Bilirubin 0.6 mg/dL (0.2-1.3); Total Protein 6.9 g/dL (6.3-8.2)
[2022-02-27 22:37] LABS: Basophils % (A) 1 %; Eosinophils % (A) 1 %; HCT 43.7 % (34.0-46.0); HGB 14.6 gm/dL (11.4-16.0); Lymphocytes # (A) 2.2 k/uL (1.0-4.8); Lymphocytes % (A) 45 %; MCH 30.5 pg (25.0-35.0); MCHC 33.4 g/dL (31.0-37.0); MCV 91.2 fL (80.0-100.0); Mean Platelet Volume 8.7; Monocytes # (A) 0.4 k/uL (0-1.0); Monocytes % (A) 8 %; Neutrophils # (A) 2.1 k/uL (1.3-7.7); Neutrophils % (A) 43 %; Platelet Count 195 k/uL (150-450); RBC 4.79 m/uL (3.80-5.40); WBC 4.9 k/uL (3.8-10.6)
[2022-02-27 22:42] LABS: Potassium 3.7 mmol/L (3.5-5.1)
--- NOTE | 2022-02-27 23:05 | XR ---
EXAMINATION TYPE: XR chest 1V portable DATE OF EXAM: 02/27/2022 COMPARISON: 08/25/2020 HISTORY: Chest pain TECHNIQUE: Single view FINDINGS: Heart and mediastinum are normal. Lungs are clear. There are sternal wires. Diaphragm is no rmal. Bony thorax is intact. IMPRESSION: No active cardiopulmonary disease. No change.
[2022-02-27] MEDS ORDERED: SODIUM CHLORIDE 0.9% 500 ML 500 ML IV ONE (23:40)
[2022-02-27] MEDS ORDERED: ACETAMINOPHEN TAB 500 MG TAB PO STA (23:40)
--- NOTE | 2022-02-27 23:47 | ED ---
General Adult HPI - General Chief complaint: Nausea/Vomiting/Diarrhea Stated complaint: Nausea, Light headed Time Seen by Provider: 02/27/22 21:47 Source: patient, RN notes reviewed Mode of arrival: ambulatory - History of Present Illness Initial comments: Patient presents to the emergency department complaining of fatigue, nausea, a few episodes of vomiting, a few episodes of diarrhea. This going on for 3 days. Patient denies any shortness of breath or chest pain. No fever. Patient is a significant history of cardiovascular disease. Not immunized against COVID-19. Patient is a cigarette smoker. No alcohol or drug abuse. No headache, no fever or chills, no changes in vision or hearing, no sore throat or difficulty with speech, no neck pain, no chest pain or shortness of breath, no abdominal pain, no nausea or vomiting, no changes in urination or bowel movements, no numbness or tingling, no extremity pain, no skin rashes or lesions. - Related Data Home Medications Medication Instructions Recorded Confirmed Aspirin EC [Ecotrin Low Dose] 81 mg PO DAILY 02/27/22 02/27/22 Atorvastatin [Lipitor] 80 mg PO DAILY 02/27/22 02/27/22 Isosorbide Mononitrate ER [Imdur] 60 mg PO DAILY 02/27/22 02/27/22 Losartan Potassium [Cozaar] 50 mg PO DAILY 02/27/22 02/27/22 Metoprolol Tartrate [Lopressor] 100 mg PO BID-W/MEALS 02/27/22 02/27/22 hydrALAZINE HCL [Apresoline] 50 mg PO TID-W/MEALS 02/27/22 02/27/22 Previous Rx's Medication Instructions Recorded Nitroglycerin Sl Tabs [Nitrostat] 0.4 mg SUBLINGUAL Q5M PRN #30 tab 08/29/20 Ondansetron [Zofran ODT] 4 mg PO Q8HR #20 tab 02/28/22 Allergies Allergy/AdvReac Type Severity Reaction Status Date / Time codeine AdvReac Nausea & Verified 02/27/22 23:27 Vomiting Review of Systems ROS Statement: Those systems with pertinent positive or pertinent negative responses have been documented in the HPI. ROS Other: All systems not noted in ROS Statement are negative. Past Medical History Past Medical History: Coronary Artery Disease (CAD), Chest Pain / Angina, Hyperlipidemia, Hypertension, Myocardial Infarction (RI) Additional Past Medical History / Comment(s): Pt states as a small child she was discovered to have a "small hole in my heart", scoliosis, UTIs Last Myocardial Infarction Date:: 2011 History of Any Multi-Drug Resistant Organisms: None Reported Past Surgical History: Section, Cholecystectomy, Ear Surgery, Heart Catheterization, Heart Catheterization With Stent, Hysterectomy, Tonsillectomy, Tubal Ligation Additional Past Surgical History / Comment(s): PCI with stents 2011, 3 vessel CABG in 2017, ERCP, bilateral myringotomy/tubes as child Past Anesthesia/Blood Transfusion Reactions: No Reported Reaction Date of Last Stent Placement:: 2011 Past Psychological History: No Psychological Hx Reported Smoking Status: Current every day smoker Past Alcohol Use History: None Reported Past Drug Use History: None Reported - Past Family History Mother Family Medical History: No Reported History Additional Family Medical History / Comment(s): Mother is healthy and is 67yrs old. Father History Unknown: Yes General Exam - General Exam Comments Initial Comments: Patient in mild distress. Does not appear to be toxic. Vital signs reviewed General appearance: alert, in no apparent distress Head exam: Present: atraumatic, normocephalic, normal inspection Eye exam: Present: normal appearance, PERRL, EOMI. Absent: scleral icterus, conjunctival injection, periorbital swelling ENT exam: Present: normal exam, normal oropharynx, mucous membranes moist, TM's normal bilaterally, normal external ear exam. Absent: mucous membranes dry Neck exam: Present: normal inspection, full ROM. Absent: tenderness, meningismus, lymphadenopathy Respiratory exam: Present: normal lung sounds bilaterally. Absent: respiratory distress, wheezes, rales, rhonchi, stridor, chest wall tenderness, accessory muscle use Cardiovascular Exam: Present: regular rate, normal rhythm, normal heart sounds. Absent: systolic murmur, diastolic murmur, rubs, gallop, clicks GI/Abdominal exam: Present: soft, normal bowel sounds. Absent: distended, tenderness, guarding, rebound, rigid Extremities exam: Present: normal inspection, full ROM, normal capillary refill. Absent: tenderness, pedal edema, joint swelling, calf tenderness Back exam: Present: normal inspection Neurological exam: Present: alert, oriented X3, CN II-XII intact Psychiatric exam: Present: normal affect, normal mood Skin exam: Present: warm, dry, intact, normal color. Absent: rash Course Vital Signs 02/27/22 02/27/22 16:19 23:49 Temperature 99.1 F Pulse Rate 68 70 Respiratory 18 18 Rate Blood Pressure 93/60 110/76 O2 Sat by Pulse 98 97 Oximetry - Reevaluation(s) Reevaluation #1: 02/27/22 23:50 Medical record is reviewed Symptoms are improved here in the emergency department Patient is informed of results and questions answered Patient in no distress Patient positive for COVID-19 Monoclonal antibody ordered. EKG Findings - EKG Comments: EKG Findings:: Repeat EKG at 2314 shows sinus rhythm with a rate of 64. No changes from the initial EKG at 1651. Normal intervals. Normal axis. Read by the ED attending physician. Medical Decision Making - Medical Decision Making Patient Positive for COVID-19. Monoclonal antibody ordered due to the patient's cardiovascular disease. Consultation quarantine measures. Patient given a monoclonal antibody. Consultation return follow-up parameters. All questions answered. Patient was stable at discharge. Patient was told to return to the ER for any signs or symptoms worsen. Told to return immediately if any other problems arise. All questions answered. Treatment plan discussed. Patient in agreement Every effort has been made to ensure accuracy of this dictation. However, due to the limitations of electronic medical records and dictation devices, errors in charting still occur. - Lab Data Result diagrams: 02/27/22 22:10 02/27/22 22:10 Lab Results 02/27/22 02/27/22 02/27/22 Range/Units 16:55 22:10 22:10 WBC 4.9 (3.8-10.6) k/uL RBC 4.79 (3.80-5.40) m/uL Hgb 14.6 (11.4-16.0) gm/dL Hct 43.7 (34.0-46.0) % MCV 91.2 (80.0-100.0) fL MCH 30.5 (25.0-35.0) pg MCHC 33.4 (31.0-37.0) g/dL RDW 14.0 (11.5-15.5) % Plt Count 195 (150-450) k/uL MPV 8.7 Neutrophils % 43 % Lymphocytes % 45 % Monocytes % 8 % Eosinophils % 1 % Basophils % 1 % Neutrophils # 2.1 (1.3-7.7) k/uL Lymphocytes # 2.2 (1.0-4.8) k/uL Monocytes # 0.4 (0-1.0) k/uL Eosinophils # 0.0 (0-0.7) k/uL Basophils # 0.0 (0-0.2) k/uL Sodium 135 L (137-145) mmol/L Potassium 3.7 (3.5-5.1) mmol/L Chloride 106 (98-107) mmol/L Carbon Dioxide 20 L (22-30) mmol/L Anion Gap 9 mmol/L BUN 36 H (7-17) mg/dL Creatinine 1.05 H (0.52-1.04) mg/dL Est GFR (CKD-EPI)AfAm 71 (>60 ml/min/1.73 sqM) Est GFR (CKD-EPI)NonAf 62 (>60 ml/min/1.73 sqM) Glucose 107 H (74-99) mg/dL POC Glucose (mg/dL) 89 (75-99) mg/dL POC Glu Computer Systems Engineer ID [facility] Calcium 9.1 (8.4-10.2) mg/dL Magnesium 1.8 (1.6-2.3) mg/dL Total Bilirubin 0.6 (0.2-1.3) mg/dL AST 63 H (14-36) U/L ALT 50 H (4-34) U/L Alkaline Phosphatase 87 (38-126) U/L Troponin I (0.000-0.034) ng/mL NT-Pro-B Natriuret Pep pg/mL Total Protein 6.9 (6.3-8.2) g/dL Albumin 4.2 (3.5-5.0) g/dL Coronavirus (PCR) (Not Detectd) 02/27/22 02/27/22 02/27/22 Range/Units 22:10 22:14 22:52 WBC (3.8-10.6) k/uL RBC (3.80-5.40) m/uL Hgb (11.4-16.0) gm/dL Hct (34.0-46.0) % MCV (80.0-100.0) fL MCH (25.0-35.0) pg MCHC (31.0-37.0) g/dL RDW (11.5-15.5) % Plt Count (150-450) k/uL MPV Neutrophils % % Lymphocytes % % Monocytes % % Eosinophils % % Basophils % % Neutrophils # (1.3-7.7) k/uL Lymphocytes # (1.0-4.8) k/uL Monocytes # (0-1.0) k/uL Eosinophils # (0-0.7) k/uL Basophils # (0-0.2) k/uL Sodium (137-145) mmol/L Potassium (3.5-5.1) mmol/L Chloride (98-107) mmol/L Carbon Dioxide (22-30) mmol/L Anion Gap mmol/L BUN (7-17) mg/dL Creatinine (0.52-1.04) mg/dL Est GFR (CKD-EPI)AfAm (>60 ml/min/1.73 sqM) Est GFR (CKD-EPI)NonAf (>60 ml/min/1.73 sqM) Glucose (74-99) mg/dL POC Glucose (mg/dL) (75-99) mg/dL POC Glu Computer Systems Engineer ID Calcium (8.4-10.2) mg/dL Magnesium (1.6-2.3) mg/dL Total Bilirubin (0.2-1.3) mg/dL AST (14-36) U/L ALT (4-34) U/L Alkaline Phosphatase (38-126) U/L Troponin I <0.012 (0.000-0.034) ng/mL NT-Pro-B Natriuret Pep 83 pg/mL Total Protein (6.3-8.2) g/dL Albumin (3.5-5.0) g/dL Coronavirus (PCR) Detected A (Not Detectd) - Radiology Data Radiology results: report reviewed, image reviewed Disposition Clinical Impression: Fatigue, Nausea & vomiting, COVID-19, Dehydration Disposition: HOME SELF-CARE Condition: Stable Instructions (If sedation given, give patient instructions): Acute Nausea and Vomiting (ED), COVID-19 (Coronavirus Disease 2019) (ED) Additional Instructions: SELF QUARANTINE DISCHARGE: As you are at risk for symptoms due to coronavirus, please stay home and stay away from others as much as possible. Please maintain social distance of 6 feet if possible. You should not return to work until at least 3 days (72 hours) have passed since recovery of symptoms. This defined as resolution of fever without the use of fever reducing medicines and improvement in respiratory symptoms (e.g,, cough, shortness of breath) Isolation can end at least 5 days after symptom onset and after fever ends for 24 hours (without the use of fever-reducing medication) and symptoms are improvi ng, if these people can continue to properly wear a well-fitted mask around others for 5 more days after the 5-day isolation period. If you're still having symptoms at the end of 5 day period, isolate for an additional 5 days. More information about what to do if you are sick can be found on the CDC website at https://www.cdc.gov/coronavirus/2019-ncov/im-nak-zsj-sick/wqbxp-isnk-hjjm.html Expect the symptoms to last for 7-14 days from onset. Use acetaminophen (Tylenol) as needed for discomfort. You can take a maximum of 1 gram every 6 hours for discomfort, with your total dose in 24 hours not exceeding 4 grams. Be sure to maintain hydration. Drink continuous water and/or items high in vitamin C, such as orange juice and/or lemonade. Unless you have high blood pressure, you may consider Sudafed (which is [id number]) for nasal congestion. I would suggest that a short acting Sudafed rather than the 24 hour Sudafed. For a cough you may take Mucinex or Robitussin. Also consider the use of Vicks Vapor Rub or your chest when you sleep. Use a humidifier that is cleaned frequently, in the bedroom at night. For Nausea /Vomiting/Diarrhea associated with your Illness: o Small frequent sips of room temperature liquids. o Diet: [place] [employer] - If you are still experiencing discomfort and/or nausea please slowly advancing your diet using the BRAT Diet = bananas, rice, apples/apple sauce, toast. o With diarrhea avoid any dairy for 48 hours after symptoms resolved. o Continue with activity as tolerated. If your symptoms do get worse and you believe that the upper respiratory infection has developed into something else, such as pneumonia or severe dehydration, please return to the emergency department or follow-up with your primary care. But expect to be symptomatic for the days as indicated above Prescriptions: Ondansetron [Zofran ODT] 4 mg PO Q8HR #20 tab Is patient prescribed a controlled substance at d/c from ED?: No Referrals: Jonathan Urena [Primary Care Provider] - 03/07/22 Time of Disposition: 23:47
[2022-02-28] MEDS ORDERED: BEBTELOVIMAB (EUA) 175 MG/2 ML VIAL IV ONE (00:15)
[2022-02-28 01:32] VITALS: BP 120/84; PULSE 72; RESP 16
== END 2022-02-28 02:46 | disposition home or self-care (01) ==
LOC: EC 15:10
DX: U07.1 COVID-19 (principal); E86.0 Dehydration; I10 Essential (primary) hypertension; I25.2 Old myocardial infarction; I25.10 Atherosclerotic heart disease of native coronary artery without angina pectoris; E78.5 Hyperlipidemia, unspecified; F17.200 Nicotine dependence, unspecified, uncomplicated; Z79.82 Long term (current) use of aspirin; Z79.899 Other long term (current) drug therapy
CPT/HCPCS: 36415; 93005; 83880; 80053; 83735; 84484; 85025; 83036; 87635; 71045; 99284; Q0222